=== PATIENT | male | born 1955 | race Hispanic/Latino ===

== ENCOUNTER 2016-10-31 12:17 | Emergency (ER) | payer OTHER ==
[2016-10-31 12:17] VITALS: BMI 29.2
[2016-10-31 12:49] VITALS: O2SAT 97
[2016-10-31] MEDS ORDERED: Naproxen 550 mg Tab PO STA (13:16)
[2016-10-31] MEDS ORDERED: Naproxen 550 mg Tab PO ONE (13:20)
--- NOTE | 2016-10-31 13:40 | C.PDOC ---
History Of Present Illness 61 yr old male presents to the ER stating he fell in the snow few weeks ago, injuring his right upper chest. Patient reports he has been having intermittent chest pain which is sharp and non radiating. Patient denies fever, SOB, nausea, vomiting, back pain, headache, weakness or numbness. Time Seen by Provider: 10/31/16 13:11 Chief Complaint (Nursing): Rib Injury History Per: Patient History/Exam Limitations: no limitations Onset/Duration Of Symptoms: Intermittent Episodes (Few weeks ) Current Symptoms Are (Timing): Still Present Past Medical History Reviewed: Historical Data, Nursing Documentation, Vital Signs Vital Signs: Last Vital Signs Temp 97.7 F 10/31/16 14:35 Pulse 100 H 10/31/16 14:35 Resp 18 10/31/16 14:35 BP 138/83 10/31/16 14:35 Pulse Ox 97 10/31/16 16:03 - Medical History PMH: Arthritis, Asthma, Back Problems, Benign Prostatic Hyperplasia, Bronchitis , Cardiac Aneurysm (aortic), CHF, COPD, Diabetes (Borderline), Emphysema, Gastritis, HTN, Hypercholesterolemia, Seizures Surgical History: Hernia Repair - [facility] Procedures ALCOHOL DETOXIFICATION (11/15/14) INSERT INDWELLING CATH (06/08/13) TETANUS TOXOID ADMINIST (05/28/14) Family History: States: No Known Family Hx - Social History Hx Tobacco Use: Yes Hx Alcohol Use: Yes Hx Substance Use: No - Immunization History Hx Influenza Vaccination: Yes Hx Pneumococcal Vaccination: Yes Review Of Systems Except As Marked, All Systems Reviewed And Found Negative. Constitutional: Negative for: Fever Cardiovascular: Positive for: Chest Pain (Right upper chest ) Respiratory: Negative for: Shortness of Breath Gastrointestinal: Negative for: Nausea, Vomiting Musculoskeletal: Negative for: Back Pain Neurological: Negative for: Weakness, Numbness, Headache Physical Exam - Physical Exam Appears: Well, Non-toxic, No Acute Distress Skin: Warm, Dry, No Rash Head: Atraumatic, Normacephalic Oral Mucosa: Moist Neck: Normal, Normal ROM, Supple Chest: Symmetrical, Tenderness (Moderate tenderness to the left upper lateral chest ) Cardiovascular: Rhythm Irregular, No Murmur Respiratory: Normal Breath Sounds, No Rales, No Wheezing Gastrointestinal/Abdominal: Normal Exam, Soft, No Tenderness, No Guarding, No Rebound Back: Normal Inspection, No CVA Tenderness, Paraspinal Tenderness (difuse c5 to l1) Extremity: Normal ROM, No Swelling Neurological/Psych: Oriented x3, Normal Speech, Normal Cognition, Normal Motor ED Course And Treatment ECG: Interpreted By Me, Viewed By Me ECG Rhythm: Sinus Tachycardia ECG Interpretation: Abnormal Rate From EC (BPM) O2 Sat by Pulse Oximetry: 97 (RA ) - Other Rad X-Ray - Ribs & Chest X-Ray: Interpreted by Me, Viewed By Me Interpretation: Fractured 8th rib. Medical Decision Making Medical Decision Making: PLAN: * X-Ray - Ribs & Chest * Naproxen PO No ptx, results discussed with pt dc home with meds Disposition Counseled Patient/Family Regarding: Need For Followup - Disposition Disposition: HOME/ ROUTINE Disposition Time: 14:25 Condition: GOOD Prescriptions: Naproxen [Naprosyn] 1 tab PO BID PRN #25 tab PRN Reason: Pain oxyCODONE/Acetaminophen [Percocet 5/325 mg Tab] 1 tab PO Q4H PRN #12 tab PRN Reason: .severe pain Instructions: Rib Fracture (ED) - Clinical Impression Clinical Impression: Rib fracture - Scribe Statement The provider has reviewed the documentation as recorded by the Scribe Rox Holland Provider Attestation: All medical record entries made by the Scribe were at my direction and personally dictated by me. I have reviewed the chart and agree that the record accurately reflects my personal performance of the history, physical exam, medical decision making, and the department course for this patient. I have also personally directed, reviewed, and agree with the discharge instructions and disposition.
[2016-10-31 14:37] VITALS: BP 138/83; PULSE 100; RESP 18; TEMP 97.7
--- NOTE | 2016-10-31 15:24 | RAD ---
PROCEDURE: Radiographs of the Chest and Right Ribs. HISTORY: fall rt upper CP COMPARISON: None available. TECHNIQUE: Frontal radiograph of the chest and multiple oblique radiographs of the right ribs were obtained. FINDINGS: RIGHT RIBS: There is nondisplaced fracture at the right 9th rib LUNGS: Clear. PLEURA: No pneumothorax or pleural fluid. CARDIOVASCULAR: Normal sized heart. No pulmonary vascular congestion. OTHER FINDINGS: None. IMPRESSION: Nondisplaced fracture at the right 9th rib.
--- NOTE | 2016-11-05 13:14 | CARD ---
APPROVED REPORT EKG Measurement Heart [id number] <Conclusion> Sinus tachycardia Voltage criteria for left ventricular hypertrophy Abnormal ECG
== END 2016-10-31 14:36 | disposition home or self-care (01) ==
LOC: C.ER 12:17
DX: S22.31XA Fracture of one rib, right side, initial encounter for closed fracture (principal); W00.0XXA Fall on same level due to ice and snow, initial encounter

== ENCOUNTER 2016-12-06 20:02 | Emergency (ER) | payer OTHER ==
[2016-12-06 20:02] VITALS: BMI 29.2
[2016-12-06 20:48] VITALS: TEMP 97.4
--- NOTE | 2016-12-06 22:10 | C.PDOC ---
History Of Present Illness A 61 year old male presents to the ER c/o chronic lower back pain that radiates to the bilateral lower legs and thighs for a while now. Patient notes taking OTC meds with no relief. Patient denies bowel or bladder incontinence, weakness or numbness, nausea, vomiting, trauma, fever, chills, or any other complaints. Time Seen by Provider: 12/06/16 20:59 Chief Complaint (Nursing): Hip Pain History Per: Patient History/Exam Limitations: no limitations Onset/Duration Of Symptoms: Days Current Symptoms Are (Timing): Still Present Severity: Mild Recent travel outside of the [place]: No Additional History Per: Patient Past Medical History Reviewed: Historical Data, Nursing Documentation, Vital Signs Vital Signs: Last Vital Signs Temp 97.4 F L 12/06/16 20:46 Pulse 97 H 12/06/16 23:07 Resp 18 12/06/16 23:07 BP 122/80 12/06/16 23:07 Pulse Ox 99 12/06/16 23:07 - Medical History PMH: Arthritis, Asthma, Back Problems, Benign Prostatic Hyperplasia, Bronchitis , Cardiac Aneurysm, CHF, COPD, Diabetes (Borderline), Emphysema, Gastritis, HTN , Hypercholesterolemia, Seizures Surgical History: Hernia Repair - [facility] Procedures ALCOHOL DETOXIFICATION (11/15/14) INSERT INDWELLING CATH (06/08/13) TETANUS TOXOID ADMINIST (05/28/14) Family History: States: Unknown Family Hx - Social History Hx Tobacco Use: Yes Hx Alcohol Use: Yes Hx Substance Use: No - Immunization History Hx Tetanus Toxoid Vaccination: No Hx Influenza Vaccination: Yes Hx Pneumococcal Vaccination: Yes Review Of Systems Except As Marked, All Systems Reviewed And Found Negative. Constitutional: Negative for: Fever, Chills, Other (Trauma) Gastrointestinal: Negative for: Nausea, Vomiting Genitourinary: Negative for: Incontinence Musculoskeletal: Positive for: Back Pain (Lower back), Leg Pain (Bilateral lower legs and thighs) Neurological: Negative for: Weakness, Numbness Physical Exam - Physical Exam Appears: Non-toxic, No Acute Distress Skin: Warm, Dry Head: Atraumatic, Normacephalic Eye(s): bilateral: Normal Inspection Back: Normal Inspection, No Vertebral Tenderness, Paraspinal Tenderness (lumbar) , No Straight Leg Raising Extremity: Normal ROM, Tenderness (Tenderness to the lower paralumbar spine.), No Calf Tenderness, No Swelling Extremity: Bilateral: Normal Color And Temperature Pulses: Left Dorsalis Pedis: Normal, Right Dorsalis Pedis: Normal Neurological/Psych: Oriented x3, Normal Speech, Normal Motor, Normal Sensation Gait: Steady ED Course And Treatment O2 Sat by Pulse Oximetry: 97 (RA) Pulse Ox Interpretation: Normal Medical Decision Making Medical Decision Making: Impression: 61 y/o c/o lower back pain and bilateral leg and thigh pain for a while Plans: -Toradol -Reassess and disposition On reassessment, patient is resting comfortably, and is in no acute distress. Patient was instructed to follow up with physician/clinic in 1-2 days for further evaluation. Disposition Counseled Patient/Family Regarding: Diagnosis, Need For Followup, Rx Given - Disposition Disposition: HOME/ ROUTINE Disposition Time: 22:51 Condition: STABLE Additional Instructions: [facility] Return to ER if worse Prescriptions: traMADol [Ultram] 50 mg PO TID #14 tab Instructions: Chronic Pain (ED) - Clinical Impression Clinical Impression: Chronic back pain - Scribe Statement The provider has reviewed the documentation as recorded by the Scribalberto hernández All medical record entries made by the Viktoribalberto were at my direction and personally dictated by me. I have reviewed the chart and agree that the record accurately reflects my personal performance of the history, physical exam, medical decision making, and the department course for this patient. I have also personally directed, reviewed, and agree with the discharge instructions and disposition.
[2016-12-06 23:09] VITALS: BP 122/80; PULSE 97; RESP 18
[2016-12-07 04:43] VITALS: O2SAT 97
== END 2016-12-06 23:08 | disposition home or self-care (01) ==
LOC: C.ER 20:02
DX: M54.5 Low back pain (principal); G89.29 Other chronic pain
CPT/HCPCS: 96372; 99284; J1885

== ENCOUNTER 2017-01-27 11:00 | Inpatient (IN) | payer OTHER ==
[2017-01-27 11:00] VITALS: BMI 29.2
--- NOTE | 2017-01-27 11:52 | C.PDOC ---
History Of Present Illness 62 y/o male presents to ED for evaluation s/p syncope. History limited due to clinical condition. Pt states " I don't know what happened...I remember falling asleep somewhere." Pt found in hallway. Pt currently complaining of nausea, left sided neck pain and LUQ abdominal pain. Denies recent EtOH or drug use. Denies prior PSHx. LIMITED DUE TO CLIN COND "I DONT KNOW WHAT HAPPENED". BIBA FOR SYNCOPE. FOUND IN HALLWAY "I REMEMBER FALLING ASLEEP SOMEWHERE". CURRENTLY CO NAUSEA, L SIDE NECK PAIN AND LUQ ABD PAIN. DENIES RECENT ETOH, DRUG USE. DENIES PRIOR PSH ROS LIMTIED EXAM MOD DIST NONTOXIC POOR HYGIENE HEENT ATRAUM PERRLA NECK SUPPLE ATRAUM NONTEND LUNGS NEG ABD +LUQ/RLQ TEND +GUARDING SOFT NONDIST NEURO AO2 NO GROSS FOCAL DEF PSYCH CALM COOPERATIVE NO S/S ACUTE INTOX OR WITHDRAWAL GAIT STEADY WO DIFF SKIN WARM DRY MDM NO PRIOR HO DEMENTIA, DRUG ABUSE FROM PRIOR ER RECORDS. PMH of 2 AR's, COPD, hx of 2 seizures and EtOH abuse PER PRIOR DC RECORD. ?POST ICTAL, SYNCOPE Time Seen by Provider: 01/27/17 11:37 Chief Complaint (Nursing): Altered Mental Status History Per: Patient History/Exam Limitations: Clinical Condition Usual Baseline: Unknown Exacerbating Factor(s): Unknown Use Of Anticoag/Antiplatelets: No Speech Is: Normal Severity: Mild Recent travel outside of the [place]: No Associated Symptoms: Neck Pain, Syncope Past Medical History Reviewed: Historical Data, Nursing Documentation, Vital Signs Vital Signs: Last Vital Signs Temp 99.8 F H 01/27/17 12:38 Pulse 100 H 01/27/17 14:22 Resp 14 01/27/17 14:22 BP 164/108 H 01/27/17 14:22 Pulse Ox 96 01/27/17 15:16 - Medical History PMH: Arthritis, Asthma, Back Problems, Benign Prostatic Hyperplasia, Bronchitis , Cardiac Aneurysm, CHF, COPD, Diabetes (Borderline), Emphysema, Gastritis, HTN , Hypercholesterolemia, Seizures Surgical History: Hernia Repair - [facility] Procedures ALCOHOL DETOXIFICATION (11/15/14) INSERT INDWELLING CATH (06/08/13) TETANUS TOXOID ADMINIST (05/28/14) Family History: States: Unknown Family Hx - Social History Hx Tobacco Use: Yes Hx Alcohol Use: Yes Hx Substance Use: No - Immunization History Hx Tetanus Toxoid Vaccination: No Hx Influenza Vaccination: Yes Hx Pneumococcal Vaccination: Yes Review Of Systems Review Of Systems: ROS cannot be obtained secondary to pt's inabilty to answer questions. Gastrointestinal: Positive for: Nausea, Abdominal Pain Musculoskeletal: Positive for: Neck Pain Neurological: Positive for: Other (syncope) Physical Exam - Physical Exam Appears: Non-toxic, In Acute Distress (moderate), Other (poor hygeine) Skin: Warm, Dry, No Rash Head: Atraumatic, Normacephalic Eye(s): bilateral: Normal Inspection, PERRL, EOMI Neck: Normal, Normal ROM, No Midline Cervical Tenderness, No Paracervical Tenderness, Supple Chest: Symmetrical, No Tenderness Cardiovascular: Rhythm Regular, No Murmur Respiratory: Normal Breath Sounds, No Rales, No Rhonchi, No Wheezing Gastrointestinal/Abdominal: Soft, Tenderness (LUQ/RLQ), No Distention, Guarding , No Rebound Extremity: Normal ROM Extremity: Bilateral: Atraumatic Neurological/Psych: Other (AOx2, no gross focal deficit. Calm, cooperative. No acute intoxication or withdrawal.) Gait: Steady (without difficulty) ED Course And Treatment - Laboratory Results Result Diagrams: 01/27/17 12:35 01/27/17 12:35 ECG: Interpreted By Me, Viewed By Ak ECG Rhythm: Sinus Tachycardia Rate From EC (BPM) O2 Sat by Pulse Oximetry: 96 (room air) Pulse Ox Interpretation: Normal - Radiology CXR: Interpreted by Me, Viewed By Ak CXR Interpretation: Yes: No Acute Disease - CT Scan/US CT head Other Rad Studies (CT/US): Read By Radiologist, Radiology Report Reviewed CT/US Interpretation: PROCEDURE: CT HEAD WITHOUT CONTRAST. HISTORY: AMS. COMPARISON: None available. TECHNIQUE: Axial computed tomography images were obtained through the head/brain without intravenous contrast. Radiation dose: Total exam DLP = 974.30 mGy-cm. This CT exam was performed using one or more of the following dose reduction techniques: Automated exposure control, adjustment of the mA and/or kV according to patient size, and/or use of iterative reconstruction technique. FINDINGS: HEMORRHAGE: No intracranial hemorrhage. BRAIN: No mass effect or edema. No evidence of acute infarct. Mild periventricular white matter lucency consistent with age related microvascular ischemic change. There is a tiny left basal ganglia lacunar infarct not evident on prior examination. There is mild diffuse age-appropriate cerebral atrophy. VENTRICLES: Minimal ventricular dilatation consistent with degree of surrounding parenchymal atrophy. CALVARIUM: Unremarkable. PARANASAL SINUSES: Chronic ethmoid sinusitis. MASTOID AIR CELLS: Unremarkable as visualized. No inflammatory changes. OTHER FINDINGS: None. IMPRESSION: No evidence of acute infarct. No intracranial mass or hemorrhage. Age related atrophy and chronic white matter ischemic change. Chronic ethmoid sinusitis. CT abdomen Other Rad Studies (CT/US): Read By Radiologist CT/US Interpretation: PROCEDURE: CT Abdomen and Pelvis with contrast. HISTORY : L SIDED abd pain. COMPARISON: 11/05/2013. TECHNIQUE: Contrast dose: 100 mL Visipaque 320. Radiation dose: Total exam DLP = 322.99 mGy-cm. This CT exam was performed using one or more of the following dose reduction techniques: Automated exposure control, adjustment of the mA and/or kV according to patient size, and/or use of iterative reconstruction technique. FINDINGS: LOWER THORAX : Minimal dependent atelectasis posterior right lower lobe. LIVER: Unremarkable. No gross lesion or ductal dilatation. GALLBLADDER AND BILE DUCTS : Unremarkable. PANCREAS: Unremarkable. No gross lesion or ductal dilatation. SPLEEN: Unremarkable. ADRENALS: Unremarkable. No mass. KIDNEYS AND URETERS: Low-density circumscribed ovoid mass mid left kidney, 1.7 cm. Unchanged compared to 11/05/2013. This measures 45 Hounsfield units. This may represent a complex cyst with proteinaceous or hemorrhagic content. Given the interval stability over 3 years, this is not concerning for neoplasm. No other renal mass. No renal calculus or hydronephrosis. VASCULATURE: Unremarkable. No aortic aneurysm. BOWEL: No oral contrast administered. The colon is nondistended. Nevertheless, there is some concern for mild mural thickening of the distal transverse colon splenic flexure. Also questionable mural thickening of the ascending colon. Possible nonspecific colitis. Followup advised. There is sigmoid diverticulosis without evidence of diverticulitis. Questionable mural thickening of the sigmoid colon. This may be due to chronic muscular hypertrophy from diverticulosis. No other abnormal bowel loops are identified. No bowel obstruction. APPENDIX: Normal appendix. PERITONEUM: Unremarkable. No free fluid. No free air. LYMPH NODES: Unremarkable. No enlarged lymph nodes. BLADDER: Mild thickening of the anterior wall of the urinary bladder. The bladder is poorly distended. Nevertheless, further evaluation is suggested. REPRODUCTIVE: Normal prostate. BONES: No acute fracture. OTHER FINDINGS: None. IMPRESSION: Possible mild nonspecific colitis particularly notable in the transverse colon splenic flexure. Also concerning in the descending colon. Sigmoid diverticulosis. No evidence diverticulitis. Thickening of the anterior wall of the urinary bladder though the bladder is poorly distended. Further evaluation is suggested to exclude neoplasm. Stable low-density left renal mass, possibly complex cyst. Progress - Re-Evaluation Re-evaluation Note: 01/27/17 14:08 EXAM UN[facility] VSS D/W DR FITCH WILL EVAL IN ER 01/27/17 14:18 PERSIST AO2. CO PERSIST ABD PAIN. NO SZ SINCE INITIAL EVAL. NAUSEA RESOLVED. 01/27/17 14:39 persist TACHYCARDIA, HTN. 01/27/17 15:15 D/W DR MEIR THURMAN PRODUCE SORTER WILL ADMIT - Data Reviewed Data Reviewed: Lab, Diagnostic imaging, EKG, Old records - Critical Care Citical Care: Excluding Proc Time Critical Care Time: 120 minutes - Continuity of Care Discussed pt. case with is consultant/specialty: General Surgery Medical Decision Making Medical Decision Making: Plan: * CT head * EKG * CXR * labs * UA * ativan, zofran * IV fluids NO PRIOR HO DEMENTIA, DRUG ABUSE FROM PRIOR ER RECORDS. PMH of 2 AR's, COPD, hx of 2 seizures and EtOH abuse PER PRIOR DC RECORD. ?POST ICTAL, SYNCOPE Disposition Counseled Patient/Family Regarding: Studies Performed, Diagnosis - Disposition Disposition: HOSPITALIZED Disposition Time: 15:15 Condition: SERIOUS - POA Present On Arrival: None - Clinical Impression Clinical Impression: Colitis, Altered mental state, Alcohol withdrawal - Scribe Statement The provider has reviewed the documentation as recorded by the Jocy Magaña Provider Attestation: All medical record entries made by the Jocy were at my direction and personally dictated by me. I have reviewed the chart and agree that the record accurately reflects my personal performance of the history, physical exam, medical decision making, and the department course for this patient. I have also personally directed, reviewed, and agree with the discharge instructions and disposition. Decision To Admit - Pt Status Changed To: Hospital Disposition Of: Inpatient - Admit Certification Admit to Inpatient:: After my assessment, the patient will require hospitalization for at least two midnights. This is because of the severity of symptoms shown, intensity of services needed, and/or the medical risk in this patient being treated as an outpatient. - InPatient: Physician Admission Certification:: SEE NOTE - . Bed Request Type: Telemetry Admitting Physician: Michelle Elias Patient Diagnosis: Colitis, Altered mental state, Alcohol withdrawal
[2017-01-27 12:32] LABS: VENOUS BLOOD GAS BASE EXCESS 0.9 mmol/L (0.0-2.0); VENOUS BLOOD GAS PCO2 32 mmHg (40-60); VENOUS BLOOD GAS PO2 33 mm/Hg (30-55); VENOUS BLOOD PH 7.48 (7.32-7.43)
[2017-01-27 12:55] LABS: BASO % 0.5 % (0.0-2.0); HEMOGLOBIN 14.1 g/dL (12.0-18.0); LYMPH # 0.7 K/uL (1.0-4.3); LYMPH % 10.3 % (20.0-40.0); MEAN CELL VOLUME 92.7 fL (80.0-94.0); MEAN CORPUSCULAR HEMOGLOBIN 31.5 pg (27.0-31.0); MEAN PLATELET VOLUME 7.3 fL (7.2-11.7); MONO # 0.6 K/uL (0.0-0.8); NEUT # 5.5 K/uL (1.8-7.0); NEUT % 80.2 % (50.0-75.0); RBC 4.49 Mil/uL (4.40-5.90); RED CELL DISTRIBUTION WIDTH 14.4 % (11.5-14.5); WHITE BLOOD COUNT 6.9 K/uL (4.8-10.8)
--- NOTE | 2017-01-27 12:55 | RAD ---
PROCEDURE: CHEST RADIOGRAPH, 1 VIEW HISTORY: AMS COMPARISON: 10/31/2016 FINDINGS: LUNGS: Clear. PLEURA: No pneumothorax or pleural fluid seen. CARDIOVASCULAR: Normal. OSSEOUS STRUCTURES: No significant abnormalities. VISUALIZED UPPER ABDOMEN: Normal. OTHER FINDINGS: None. IMPRESSION: No active disease.
[2017-01-27 13:02] LABS: PROTHROMBIN TIME 11.3 SECONDS (9.7-12.2)
[2017-01-27 13:11] LABS: ALBUMIN 4.5 g/dL (3.5-5.0)
[2017-01-27 13:14] LABS: ALB/GLOB RATIO 1.4 (1.0-2.1); AST/SGOT 34 U/L (17-59); BLOOD UREA NITROGEN 5 mg/dL (9-20); GFR AFRICAN-AMERICAN > 60; GFR NON-AFRICAN AMERICAN > 60
[2017-01-27 13:15] LABS: ALT/SGPT 14 U/L (21-72); CALCIUM 9.3 mg/dl (8.6-10.4); LIPASE 96 U/L (23-300)
[2017-01-27] MEDS ORDERED: Iodixanol 320 MG/ML 100 ML BOTTLE IV ONE (13:39)
--- NOTE | 2017-01-27 14:03 | CT ---
PROCEDURE: CT HEAD WITHOUT CONTRAST. HISTORY: AMS COMPARISON: None available. TECHNIQUE: Axial computed tomography images were obtained through the head/brain without intravenous contrast. Radiation dose: Total exam DLP = 974.30 mGy-cm. This CT exam was performed using one or more of the following dose reduction techniques: Automated exposure control, adjustment of the mA and/or kV according to patient size, and/or use of iterative reconstruction technique. FINDINGS: HEMORRHAGE: No intracranial hemorrhage. BRAIN: No mass effect or edema. No evidence of acute infarct. Mild periventricular white matter lucency consistent with age related microvascular ischemic change. There is a tiny left basal ganglia lacunar infarct not evident on prior examination. There is mild diffuse age-appropriate cerebral atrophy. VENTRICLES: Minimal ventricular dilatation consistent with degree of surrounding parenchymal atrophy. CALVARIUM: Unremarkable. PARANASAL SINUSES: Chronic ethmoid sinusitis MASTOID AIR CELLS: Unremarkable as visualized. No inflammatory changes. OTHER FINDINGS: None. IMPRESSION: No evidence of acute infarct. No intracranial mass or hemorrhage. Age related atrophy and chronic white matter ischemic change. Chronic ethmoid sinusitis.
--- NOTE | 2017-01-27 14:36 | CT ---
PROCEDURE: CT Abdomen and Pelvis with contrast HISTORY: L SIDED abd pain COMPARISON: 11/05/2013 TECHNIQUE: Contrast dose: 100 mL Visipaque 320 Radiation dose: Total exam DLP = 322.99 mGy-cm. This CT exam was performed using one or more of the following dose reduction techniques: Automated exposure control, adjustment of the mA and/or kV according to patient size, and/or use of iterative reconstruction technique. FINDINGS: LOWER THORAX: Minimal dependent atelectasis posterior right lower lobe. LIVER: Unremarkable. No gross lesion or ductal dilatation. GALLBLADDER AND BILE DUCTS: Unremarkable. PANCREAS: Unremarkable. No gross lesion or ductal dilatation. SPLEEN: Unremarkable. ADRENALS: Unremarkable. No mass. KIDNEYS AND URETERS: Low-density circumscribed ovoid mass mid left kidney, 1.7 cm. Unchanged compared to 11/05/2013. This measures 45 Hounsfield units. This may represent a complex cyst with proteinaceous or hemorrhagic content. Given the interval stability over 3 years, this is not concerning for neoplasm. No other renal mass. No renal calculus or hydronephrosis. VASCULATURE: Unremarkable. No aortic aneurysm. BOWEL: No oral contrast administered. The colon is nondistended. Nevertheless, there is some concern for mild mural thickening of the distal transverse colon splenic flexure. Also questionable mural thickening of the ascending colon. Possible nonspecific colitis. Followup advised. There is sigmoid diverticulosis without evidence of diverticulitis. Questionable mural thickening of the sigmoid colon. This may be due to chronic muscular hypertrophy from diverticulosis. No other abnormal bowel loops are identified. No bowel obstruction. APPENDIX: Normal appendix. PERITONEUM: Unremarkable. No free fluid. No free air. LYMPH NODES: Unremarkable. No enlarged lymph nodes. BLADDER: Mild thickening of the anterior wall of the urinary bladder. The bladder is poorly distended. Nevertheless, further evaluation is suggested. REPRODUCTIVE: Normal prostate BONES: No acute fracture. OTHER FINDINGS: None. IMPRESSION: Possible mild nonspecific colitis particularly notable in the transverse colon splenic flexure. Also concerning in the descending colon. Sigmoid diverticulosis. No evidence diverticulitis. Thickening of the anterior wall of the urinary bladder though the bladder is poorly distended. Further evaluation is suggested to exclude neoplasm. Stable low-density left renal mass, possibly complex cyst.
[2017-01-27 15:01] LABS: SQUAMOUS EPITHIAL < 1 /hpf (0-5); URINE BILIRUBIN NEGATIVE (NEGATIVE); URINE BLOOD 1+ (NEGATIVE); URINE CLARITY Clear (Clear); URINE COLOR Yellow (YELLOW); URINE GLUCOSE (UA) 1+ mg/dL (Normal); URINE LEUKOCYTE ESTERASE NEG Leu/uL (Negative); URINE NITRATE NEGATIVE (NEGATIVE); URINE PROTEIN NEGATIVE (NEGATIVE); URINE UROBILINOGEN NORMAL mg/dL (0.2-1.0)
[2017-01-27 15:08] LABS: BENZODIAZEPINES, UR NEGATIVE (NEGATIVE)
[2017-01-27 15:09] LABS: BARBITURATES, UR NEGATIVE (NEGATIVE)
[2017-01-27 15:11] LABS: OPIATES, UR NEGATIVE (NEGATIVE)
[2017-01-27 15:12] LABS: PHENCYCLIDINE, UR NEGATIVE (NEGATIVE)
[2017-01-27] MEDS ORDERED: metroNIDAZOLE IV 500 mg/100 ml 500 MG/100 ML BAG IV STA (15:13)
[2017-01-27] MEDS ORDERED: Ciprofloxacin 400mg/200ml D5W 400 MG/200 ML BAG IV ONE (15:15)
--- NOTE | 2017-01-27 15:35 | CP.PCM.CON ---
<Jose Angel Serrano - Last Filed: 01/27/17 15:42> History of Present Illness - History of Present Illness History of Present Illness: Surgery: Dr. Green CC: Abd pain HPI: 62M was found down by EMS in hallway for unknown duration and brought to ED. Pt is awake and alert, but unable to provide any hx about current state. After presenting to ED he states that he developed L side abd pain, nausea and no vomiting. He states that the pain is localized. No alleviating/aggravating factors. He denies F/C, no HAHN/blurred vision, no CP/palpitations, no SOB/cough , no hematuria/dysuria, no change in bowel habits. PMH: HTN, PR, CHF, DM, BPH, COPD, seizures PSH: Pt denies, review of chart shows R inguinal and ventral hernia repair Meds: MAR reviewed NKDA Social: +ETOH/tobacco, no drugs Fhx: Non-contributory Review of Systems - Review of Systems All systems: reviewed and no additional remarkable complaints except (HPI) Past Patient History - Infectious Disease Hx of Infectious Diseases: None - Past Medical History & Family History Past Medical History?: Yes - Past Social History Smoking Status: Light Smoker < 10 Cigarettes Daily - CARDIAC Hx Congestive Heart Failure: Yes Hx Hypercholesterolemia: Yes Hx Hypertension: Yes - PULMONARY Hx Asthma: Yes Hx Bronchitis: Yes Hx Chronic Obstructive Pulmonary Disease (COPD): Yes Hx Emphysema: Yes - NEUROLOGICAL Hx Seizures: Yes - HEENT Hx HEENT Problems: No - ENDOCRINE/METABOLIC Hx Endocrine Disorders: Yes Hx Diabetes Mellitus Type 2: Yes - HEMATOLOGICAL/ONCOLOGICAL Hx Blood Disorders: No - INTEGUMENTARY Hx Dermatological Problems: No - MUSCULOSKELETAL/RHEUMATOLOGICAL Hx Arthritis: Yes - GASTROINTESTINAL Hx Gastritis: Yes - PSYCHIATRIC Hx Substance Use: No - SURGICAL HISTORY Hx Surgeries: Yes Hx Herniorrhaphy: Yes - ANESTHESIA Hx Anesthesia: Yes Hx Anesthesia Reactions: No Meds Allergies/Adverse Reactions: Allergies Allergy/AdvReac Type Severity Reaction Status Date / Time tomatoes AdvReac RASH Uncoded 01/27/17 11:19 - Medications Medications: Current Medications Hydralazine HCl (Apresoline) 10 mg IVP STAT NOEL Ciprofloxacin (Cipro 400mg/200ml Dsw) 400 mg in 200 mls @ 133.333 mls/hr IV ONCE ONE Stop: 01/27/17 16:44 Metronidazole (Flagyl) 500 mg in 100 mls @ 100 mls/hr IV STAT STA Stop: 01/27/17 16:12 Physical Exam - Constitutional Appears: Non-toxic, No Acute Distress, Unkempt, Confused - Head Exam Head Exam: ATRAUMATIC, NORMOCEPHALIC - Eye Exam Eye Exam: EOMI - ENT Exam ENT Exam: Mucous Membranes Moist - Neck Exam Neck exam: Positive for: Full Rom - Respiratory Exam Respiratory Exam: NORMAL BREATHING PATTERN. absent: Accessory Muscle Use, Respiratory Distress - GI/Abdominal Exam GI & Abdominal Exam: Soft, Tenderness (L mid abd). absent: Distended, Firm, Guarding, Rebound, Rigid - Extremities Exam Extremities exam: Negative for: calf tenderness, pedal edema - Neurological Exam Neurological exam: Alert Results - Vital Signs Recent Vital Signs: Last Vital Signs Temp 99.8 F H 01/27/17 12:38 Pulse 100 H 01/27/17 14:22 Resp 14 01/27/17 14:22 BP 164/108 H 01/27/17 14:22 Pulse Ox 96 01/27/17 15:16 - Labs Result Diagrams: 01/27/17 12:35 01/27/17 12:35 Labs: Laboratory Results - last 24 hr 01/27/17 01/27/17 01/27/17 12:25 12:35 12:35 WBC 6.9 RBC 4.49 Hgb 14.1 Hct 41.6 MCV 92.7 D MCH 31.5 H MCHC 34.0 RDW 14.4 Plt Count 294 MPV 7.3 Neut % (Auto) 80.2 H Lymph % (Auto) 10.3 L [place] % (Auto) 9.0 Eos % (Auto) 0.0 Baso % (Auto) 0.5 Neut # 5.5 Lymph # 0.7 L [place] # 0.6 Eos # 0.0 Baso # 0.0 PT 11.3 INR 1.0 APTT 28 pO2 33 VBG pH 7.48 H VBG pCO2 32 L VBG HCO3 24.9 VBG Total CO2 24.8 VBG O2 Sat (Calc) 72.4 H VBG Base Excess 0.9 VBG Potassium 3.4 L Sodium 135.0 Chloride 100.0 Glucose 127 H Lactate 1.7 Potassium Carbon Dioxide Anion Gap BUN Creatinine Est GFR ( Amer) Est GFR (Non-Af Amer) Random Glucose Calcium Total Bilirubin AST ALT Alkaline Phosphatase Troponin I Total Protein Albumin Globulin Albumin/Globulin Ratio Lipase Venous Blood Potassium 3.4 L Urine Color Urine Clarity Urine pH Ur Specific [place] Urine Protein Urine Glucose (UA) Urine Ketones Urine Blood Urine Nitrate Urine Bilirubin Urine Urobilinogen Ur Leukocyte Esterase Urine WBC (Auto) Urine RBC (Auto) Ur Squamous Epith Cells Urine Opiates Screen Urine Methadone Screen Ur Barbiturates Screen Ur Phencyclidine Scrn Ur Amphetamines Screen U Benzodiazepines Scrn U Oth Cocaine Metabols U Cannabinoids Screen Alcohol, Quantitative 01/27/17 01/27/17 01/27/17 12:35 14:44 14:47 WBC RBC Hgb Hct MCV MCH MCHC RDW Plt Count MPV Neut % (Auto) Lymph % (Auto) [place] % (Auto) Eos % (Auto) Baso % (Auto) Neut # Lymph # [place] # Eos # Baso # PT INR APTT pO2 VBG pH VBG pCO2 VBG HCO3 VBG Total CO2 VBG O2 Sat (Calc) VBG Base Excess VBG Potassium Sodium 136 Chloride 100 Glucose Lactate Potassium 3.4 L Carbon Dioxide 21 L Anion Gap 18 BUN 5 L Creatinine 0.5 L Est GFR ( Amer) > 60 Est GFR (Non-Af Amer) > 60 Random Glucose 128 H Calcium 9.3 Total Bilirubin 0.7 AST 34 ALT 14 L D Alkaline Phosphatase 61 Troponin I 0.0150 Total Protein 7.8 Albumin 4.5 Globulin 3.3 Albumin/Globulin Ratio 1.4 Lipase 96 Venous Blood Potassium Urine Color Yellow Urine Clarity Clear Urine pH 7.0 Ur Specific [place] 1.010 Urine Protein Negative Urine Glucose (UA) 1+ H Urine Ketones 2+ H Urine Blood 1+ H Urine Nitrate Negative Urine Bilirubin Negative Urine Urobilinogen Normal Ur Leukocyte Esterase Neg Urine WBC (Auto) 1 Urine RBC (Auto) 4 H Ur Squamous Epith Cells < 1 Urine Opiates Screen Negative Urine Methadone Screen Negative Ur Barbiturates Screen Negative Ur Phencyclidine Scrn Negative Ur Amphetamines Screen Negative U Benzodiazepines Scrn Negative U Oth Cocaine Metabols Negative U Cannabinoids Screen Negative Alcohol, Quantitative < 10 - Imaging and Cardiology CT scan - abdomen Status: Image reviewed by me Assessment & Plan - Assessment and Plan (Free Text) Assessment: 62M w. abd pain -CT: possible colitis -No leukocytosis -CLD, ADAT -serial abd exam -no plans for surgical intervention at this time -will continue to follow -d/w attending Maggie <Js Green - Last Filed: 02/07/17 16:18> Results - Vital Signs Recent Vital Signs: Last Vital Signs Temp 97.7 F 01/29/17 07:50 Pulse 85 01/29/17 08:57 Resp 18 01/29/17 07:50 BP 167/98 H 01/29/17 07:50 Pulse Ox 99 01/29/17 07:50 - Labs Result Diagrams: 01/29/17 07:20 01/29/17 07:20 Attending/Attestation - Attestation I have personally seen and examined this patient.: Yes I have fully participated in the care of the patient.: Yes I have reviewed all pertinent clinical information: Yes Notes (Text): 02/07/17 16:17 Pt was seen and examined at bedside on 01/28/17 Agree with above note and assessment Pt with Right Flank pain due to fall Colitis is less likely CT scan reviewed Labs reviewed. C/w current mx Plan d/w pt and PMD in detail Risk and benefit explained in detail.
[2017-01-27] MEDS ORDERED: Sodium Chloride 0.9% 1,000 ML IV SCH (15:45)
[2017-01-27] MEDS ORDERED: Sodium Chloride 0.9% 1,000 ML ONE (16:20)
[2017-01-27 16:26] LABS: VENOUS BLOOD GAS BASE EXCESS -1.4 mmol/L (0.0-2.0); VENOUS BLOOD GAS PCO2 27 mmHg (40-60); VENOUS BLOOD GAS PO2 69 mm/Hg (30-55); VENOUS BLOOD PH 7.49 (7.32-7.43)
[2017-01-27 16:40] LABS: MAGNESIUM 1.7 mg/dL (1.6-2.3)
--- NOTE | 2017-01-28 07:47 | CARD ---
APPROVED REPORT EKG Measurement Heart [id number] <Conclusion> Sinus tachycardia Possible Left atrial enlargement Left ventricular hypertrophy Abnormal ECG
--- NOTE | 2017-01-28 10:47 | CP.PCM.PN ---
<Jose Angel Serrano - Last Filed: 01/28/17 10:45> Subjective - Date & Time of Evaluation Date of Evaluation: 01/28/17 Time of Evaluation: 10:45 - Subjective Subjective: Surgery: Dr. Green Pt seen and examined. LUQ abd pain persists. Pain most prominent at costal margin. No N/V. Objective - Vital Signs/Intake and Output Vital Signs (last 24 hours): Temp Pulse Resp BP Pulse Ox 97.8 F 78 20 125/81 97 01/28/17 09:19 01/28/17 09:19 01/28/17 09:19 01/28/17 09:19 01/28/17 09:19 Intake and Output: 01/28/17 01/28/17 06:59 18:59 Intake Total 1040 Balance 1040 - Medications Medications: Current Medications Albuterol/Ipratropium (Duoneb 3 Mg/0.5 Mg (3 Ml) Ud) 3 ml INH RQ6 NOEL Heparin Sodium (Porcine) (Heparin) 5,000 units SC Q12 NOEL Sodium Chloride (Sodium Chloride 0.9%) 1,000 mls @ 115 mls/hr IV .[id number] NOEL Last Admin: 01/27/17 16:27 Dose: 115 mls/hr Ciprofloxacin (Cipro 400mg/200ml Dsw) 400 mg in 200 mls @ 133 mls/hr IVPB Q12H NOEL Metronidazole (Flagyl) 500 mg in 100 mls @ 100 mls/hr IVPB Q8 NOEL Thiamine HCl (Vitamin B1 Tab) 100 mg PO DAILY NOEL - Labs Labs: PT 11.3 SECONDS (9.7-12.2) 01/27/17 12:35 INR 1.0 01/27/17 12:35 APTT 28 SECONDS (21-34) 01/27/17 12:35 - Constitutional Appears: Non-toxic, No Acute Distress - Eye Exam Eye Exam: EOMI - ENT Exam ENT Exam: Mucous Membranes Moist - Neck Exam Neck Exam: Full ROM - Respiratory Exam Respiratory Exam: NORMAL BREATHING PATTERN. absent: Accessory Muscle Use, Respiratory Distress - GI/Abdominal Exam GI & Abdominal Exam: Soft, Tenderness (LUQ at costal margin). absent: Distended , Firm, Guarding, Rigid, Rebound - Extremities Exam Extremities Exam: absent: Calf Tenderness, Pedal Edema - Neurological Exam Neurological Exam: Alert, Awake Assessment and Plan - Assessment and Plan (Free Text) Assessment: 62M w. abd pain, likely musculoskeletal 2/2 syncope where pt was lying down for unknown duration -advance diet as tolerated -no plans for surgical intervention -d/w attending Maggie PGY2 <Js Green - Last Filed: 02/07/17 16:19> Objective - Vital Signs/Intake and Output Vital Signs (last 24 hours): Temp Pulse Resp BP Pulse Ox 97.7 F 85 18 167/98 H 99 01/29/17 07:50 01/29/17 08:57 01/29/17 07:50 01/29/17 07:50 01/29/17 07:50 - Labs Labs: 01/29/17 07:20 01/29/17 07:20 PT 11.3 SECONDS (9.7-12.2) 01/27/17 12:35 INR 1.0 01/27/17 12:35 APTT 28 SECONDS (21-34) 01/27/17 12:35 Attending/Attestation - Attestation I have personally seen and examined this patient.: Yes I have fully participated in the care of the patient.: Yes I have reviewed all pertinent clinical information, including history, physical exam and plan: Yes Notes (Text): 02/07/17 16:19 Pt was seen and examined at bedside on 01/28/17 Agree with above note and assessment Pt with Right Flank pain due to fall Colitis is less likely CT scan reviewed Labs reviewed. C/w current mx Plan d/w pt and PMD in detail Risk and benefit explained in detail.
[2017-01-28] MEDS: Ciprofloxacin 400mg/200ml D5W 400 MG/200 ML BAG IVPB SCH ×2 (11:09→21:02)
[2017-01-28] MEDS: Sodium Chloride 0.9% 1,000 ML IV SCH (13:06)
[2017-01-28] MEDS: Albuterol-Ipratrop 3 mg / 0.5 (3 ml) UD INH SCH ×2 (13:26→19:46)
[2017-01-28] MEDS: metroNIDAZOLE IV 500 mg/100 ml 500 MG/100 ML BAG IVPB SCH ×2 (14:02→22:49)
[2017-01-29] MEDS: Albuterol-Ipratrop 3 mg / 0.5 (3 ml) UD INH SCH ×2 (01:29→08:07)
[2017-01-29] MEDS: Sodium Chloride 0.9% 1,000 ML IV SCH (02:00)
[2017-01-29] MEDS: metroNIDAZOLE IV 500 mg/100 ml 500 MG/100 ML BAG IVPB SCH (07:10)
[2017-01-29 07:35] LABS: BASO % 0.7 % (0.0-2.0); EOS # 0.2 K/uL (0.0-0.7); EOS % 3.7 % (0.0-4.0); HEMOGLOBIN 12.9 g/dL (12.0-18.0); LYMPH # 1.4 K/uL (1.0-4.3); LYMPH % 30.1 % (20.0-40.0); MEAN CELL VOLUME 93.8 fL (80.0-94.0); MEAN CORPUSCULAR HEMOGLOBIN 31.5 pg (27.0-31.0); MEAN CORPUSCULAR HGB CONC 33.6 g/dL (33.0-37.0); MEAN PLATELET VOLUME 7.3 fL (7.2-11.7); MONO # 0.5 K/uL (0.0-0.8); NEUT # 2.6 K/uL (1.8-7.0); NEUT % 54.5 % (50.0-75.0); RBC 4.1 Mil/uL (4.40-5.90); RED CELL DISTRIBUTION WIDTH 14.2 % (11.5-14.5); WHITE BLOOD COUNT 4.8 K/uL (4.8-10.8)
[2017-01-29 08:31] LABS: ALBUMIN 3.4 g/dL (3.5-5.0)
[2017-01-29 08:34] LABS: ALB/GLOB RATIO 1.3 (1.0-2.1); AST/SGOT 23 U/L (17-59); BLOOD UREA NITROGEN 4 mg/dL (9-20); GFR AFRICAN-AMERICAN > 60; GFR NON-AFRICAN AMERICAN > 60
[2017-01-29 08:35] LABS: ALT/SGPT 17 U/L (21-72); CALCIUM 8.5 mg/dl (8.6-10.4)
[2017-01-29 08:44] VITALS: BP 167/98; RESP 18; TEMP 97.7; O2SAT 99
[2017-01-29 09:07] VITALS: PULSE 85
--- NOTE | 2017-01-29 09:15 | CP.PCM.PN ---
<Antoni Prater - Last Filed: 01/29/17 09:16> Subjective - Date & Time of Evaluation Date of Evaluation: 01/29/17 Time of Evaluation: 06:45 - Subjective Subjective: SURGERY NOTE FOR DR. GREEN 62M seen and examined at bedside. Patient states pain in improved, denies nausea /vomiting, fevers/chills. Objective - Vital Signs/Intake and Output Vital Signs (last 24 hours): Temp Pulse Resp BP Pulse Ox 97.7 F 85 18 167/98 H 99 01/29/17 07:50 01/29/17 08:57 01/29/17 07:50 01/29/17 07:50 01/29/17 07:50 Intake and Output: 01/29/17 01/29/17 06:59 18:59 Intake Total 1600 Balance 1600 - Medications Medications: Current Medications Albuterol/Ipratropium (Duoneb 3 Mg/0.5 Mg (3 Ml) Ud) 3 ml INH RQ6 NOEL Last Admin: 01/29/17 08:07 Dose: 3 ml Chlordiazepoxide (Librium) 25 mg PO Q8 PRN PRN Reason: Anxiety Heparin Sodium (Porcine) (Heparin) 5,000 units SC Q12 NOEL Last Admin: 01/28/17 22:49 Dose: 5,000 units Ciprofloxacin (Cipro 400mg/200ml Dsw) 400 mg in 200 mls @ 133 mls/hr IVPB Q12H NOEL Last Admin: 01/28/17 21:02 Dose: 133 mls/hr Metronidazole (Flagyl) 500 mg in 100 mls @ 100 mls/hr IVPB Q8 NOLE Last Admin: 01/29/17 07:10 Dose: 100 mls/hr Sodium Chloride (Sodium Chloride 0.9%) 1,000 mls @ 80 mls/hr IV .[id number] [facility] [place] Last Admin: 01/29/17 02:00 Dose: Not Given Thiamine HCl (Vitamin B1 Tab) 100 mg PO DAILY [facility] [place] Last Admin: 01/28/17 11:09 Dose: 100 mg - Labs Labs: 01/29/17 07:20 01/29/17 07:20 PT 11.3 SECONDS (9.7-12.2) 01/27/17 12:35 INR 1.0 01/27/17 12:35 APTT 28 SECONDS (21-34) 01/27/17 12:35 - Constitutional Appears: Non-toxic, No Acute Distress - Respiratory Exam Respiratory Exam: Clear to Ausculation Bilateral, NORMAL BREATHING PATTERN - Cardiovascular Exam Cardiovascular Exam: REGULAR RHYTHM, +S1, +S2 - GI/Abdominal Exam GI & Abdominal Exam: Soft. absent: Distended, Firm, Guarding, Rigid, Tenderness , Rebound - Neurological Exam Neurological Exam: Alert, Awake Assessment and Plan - Assessment and Plan (Free Text) Assessment: 62M presents with abdominal pain that resolved Plan: - advance diet to regular - No surgical intervention - signing off Further recs discuss with Dr. Peter Prater, PGY1 <Js Green - Last Filed: 02/07/17 16:23> Objective - Vital Signs/Intake and Output Vital Signs (last 24 hours): Temp Pulse Resp BP Pulse Ox 97.7 F 85 18 167/98 H 99 01/29/17 07:50 01/29/17 08:57 01/29/17 07:50 01/29/17 07:50 01/29/17 07:50 - Labs Labs: 01/29/17 07:20 01/29/17 07:20 PT 11.3 SECONDS (9.7-12.2) 01/27/17 12:35 INR 1.0 01/27/17 12:35 APTT 28 SECONDS (21-34) 01/27/17 12:35 Attending/Attestation - Attestation I have personally seen and examined this patient.: Yes I have fully participated in the care of the patient.: Yes I have reviewed all pertinent clinical information, including history, physical exam and plan: Yes Notes (Text): 02/07/17 16:22 Pt was seen and examined at bedside on 01/29/17 Agree with above note and assessment Pt with Right Flank pain due to fall with Musculoskeletal pain Pt is improving Clinically No clinical evidence of Colitis Plan d/w pt and PMD in detail Risk and benefit explained in detail.
[2017-01-29] MEDS: Ciprofloxacin 400mg/200ml D5W 400 MG/200 ML BAG IVPB SCH (10:16)
[2017-01-29] MEDS ORDERED: Potassium Chloride 20 mEq ER Tab PO SCH (13:16)
[2017-01-29] MEDS ORDERED: NIFEDIPINE 60 MG PO SCH (14:30)
--- NOTE | 2017-01-29 16:34 | CP.PCM.PN ---
Subjective - Date & Time of Evaluation Date of Evaluation: 01/29/17 Time of Evaluation: 11:00 - Subjective Subjective: alert, awake, ambulatory, no distress noted. Objective - Vital Signs/Intake and Output Vital Signs (last 24 hours): Temp Pulse Resp BP Pulse Ox 97.7 F 85 18 167/98 H 99 01/29/17 07:50 01/29/17 08:57 01/29/17 07:50 01/29/17 07:50 01/29/17 07:50 Intake and Output: 01/29/17 01/29/17 06:59 18:59 Intake Total 1600 Balance 1600 - Labs Labs: 01/29/17 07:20 01/29/17 07:20 PT 11.3 SECONDS (9.7-12.2) 01/27/17 12:35 INR 1.0 01/27/17 12:35 APTT 28 SECONDS (21-34) 01/27/17 12:35 Assessment and Plan - Assessment and Plan (Free Text) Assessment: Patient admitted with syncope, vomiting episode at home, alert and orientedx3, denies sob or chest pains. Cleared by surgery, able to tolerate diet, labs back to normal. D/W DR Elias, plan to discharge home today.
--- NOTE | 2017-01-29 16:40 | PCM.HF ---
Heart Failure Core Measure - Heart Failure Ejection Fraction: 40 % or Greater (EF 40-45%) RAFI Inhibitor Prescribed: Yes Beta-Leeann Prescribed: None Contraindication/Reason for not providing: COPD Angiotensin II Receptor Leeann Prescribed: No Contraindication/Reason for not providing: on rafi AnticoagulationTherapy for Atrial Fibrillation/Atrialflutter: No Contraindication/Reason for not providing: no afib Aldosterone Antagonist Prescribed: No Contraindication/Reason for not providing: ON NIFEDIPINE Hydralazine Nitrate Prescribed: No Contraindication/Reason for not providing: EF > 40% Implantable Cardioverter Defibrillator Therapy: No Contraindication/Reason for not providing: EF >40% Cardiac Resynchronization Therapy Prescribed: No Contraindication/Reason for not providing: not indicated - Follow up Will be discharged to: Home Follow Up Date (must be within 7 days from discharge): 02/03/17 Follow Up Time: 09:00
== END 2017-01-29 15:00 | disposition home or self-care (01) | DRG 141 ==
LOC: C.ER 11:00 → C.9E 15:17 → C.6T 17:53
PROVIDERS: ADMIT Internal Medicine; ATTEND Internal Medicine
DX: R55 Syncope and collapse (principal); F10.239 Alcohol dependence with withdrawal, unspecified; I11.0 Hypertensive heart disease with heart failure; I50.9 Heart failure, unspecified; R56.9 Unspecified convulsions; J44.9 Chronic obstructive pulmonary disease, unspecified; F17.210 Nicotine dependence, cigarettes, uncomplicated; N40.0 Benign prostatic hyperplasia without lower urinary tract symptoms; E11.9 Type 2 diabetes mellitus without complications; E78.00 Pure hypercholesterolemia, unspecified; R10.9 Unspecified abdominal pain

== ENCOUNTER 2017-03-06 22:38 | Emergency (ER) | payer OTHER ==
[2017-03-06 22:38] VITALS: BMI 29.2
[2017-03-06 22:55] VITALS: RESP 18; TEMP 97.7
--- NOTE | 2017-03-06 23:25 | C.PDOC ---
History Of Present Illness 62 year old male presents to the ED with complaints of diffuse chronic pruritic rash for several months. Patient states he was seen many times at [facility] and in ER. Pt currently uses calamine lotion with no relief. He denies fever, difficulty breath, or URI symptoms. Time Seen by Provider: 03/06/17 22:59 Chief Complaint (Nursing): Abnormal Skin Integrity History Per: Patient History/Exam Limitations: no limitations Onset/Duration Of Symptoms: Persistent (as per patient, several months ) Current Symptoms Are (Timing): Still Present Quality Of Symptoms: Itching. denies: Painful, Draining Recent travel outside of the [place]: No Additional History Per: Prior Records Past Medical History Reviewed: Historical Data, Nursing Documentation, Vital Signs Vital Signs: Last Vital Signs Temp 97.7 F 03/06/17 22:51 Pulse 94 H 03/06/17 23:34 Resp 18 03/06/17 23:34 BP 131/81 03/06/17 23:34 Pulse Ox 99 03/07/17 02:15 - Medical History PMH: Arthritis, Asthma, Back Problems, Benign Prostatic Hyperplasia, Bronchitis , Cardiac Aneurysm, CHF, COPD, Diabetes (Borderline), Emphysema, Gastritis, HTN , Hypercholesterolemia, Seizures Surgical History: Hernia Repair - [facility] Procedures ALCOHOL DETOXIFICATION (11/15/14) INSERT INDWELLING CATH (06/08/13) TETANUS TOXOID ADMINIST (05/28/14) Family History: States: Unknown Family Hx - Social History Hx Tobacco Use: Yes Hx Alcohol Use: Yes Hx Substance Use: No - Immunization History Hx Tetanus Toxoid Vaccination: No Hx Influenza Vaccination: Yes Hx Pneumococcal Vaccination: Yes Review Of Systems Constitutional: Negative for: Fever, Chills ENT: Negative for: Mouth Swelling, Throat Swelling Cardiovascular: Negative for: Chest Pain Respiratory: Negative for: Cough, Shortness of Breath Skin: Positive for: Rash Physical Exam - Physical Exam Appears: Non-toxic, No Acute Distress Skin: Warm, Dry, Rash (Diffuse dry, scaly, and mildly erythematus rash to the upper extremities, antecubital area, abdomen, and back.) Head: Atraumatic Eye(s): bilateral: Normal Inspection, PERRL, EOMI Oral Mucosa: Moist Tongue: Normal Appearing, No Swelling Lips: Normal Appearing, No Swelling Throat: Normal, No Erythema, No Exudate Neck: Supple Chest: Symmetrical, No Deformity Cardiovascular: Rhythm Regular Respiratory: Normal Breath Sounds, No Wheezing Neurological/Psych: Oriented x3 ED Course And Treatment O2 Sat by Pulse Oximetry: 99 (room air ) Progress Note: Patient was given prescription for Cortisone 1% cream and Atarax. Instructed to follow up with doctor. Disposition Counseled Patient/Family Regarding: Diagnosis, Need For Followup, Rx Given - Disposition Disposition: HOME/ ROUTINE Disposition Time: 23:23 Condition: STABLE Additional Instructions: Use medications as prescribed Take meds as directed Return to ER if worse Prescriptions: Hydrocortisone 1% Cream [Cortizone 1% Cream] 1 appl TP BID #1 tube hydrOXYzine HCl [Atarax] 25 mg PO HS #20 tab Instructions: Dermatitis (ED) Forms: [facility] (Swazi) - Clinical Impression Clinical Impression: Dermatitis - Scribe Statement The provider has reviewed the documentation as recorded by the Scribe Sultana Joseph All medical record entries made by the Scribe were at my direction and personally dictated by me. I have reviewed the chart and agree that the record accurately reflects my personal performance of the history, physical exam, medical decision making, and the department course for this patient. I have also personally directed, reviewed, and agree with the discharge instructions and disposition.
[2017-03-06 23:34] VITALS: BP 131/81; PULSE 94
[2017-03-07 02:09] VITALS: O2SAT 99
== END 2017-03-06 23:37 | disposition home or self-care (01) ==
LOC: C.ER 22:38
DX: L30.9 Dermatitis, unspecified (principal)

== ENCOUNTER 2017-03-08 18:37 | Inpatient (IN) | payer MEDICAID, OTHER ==
[2017-03-08 18:37] VITALS: BMI 29.2
[2017-03-08] MEDS ORDERED: Sodium Chloride 0.9% 1,000 ML IV ONE (19:16)
--- NOTE | 2017-03-08 19:16 | C.PDOC ---
History Of Present Illness Patient presents to the ER with a complaint of vomiting and shaking; he reports drinking 1-2 pints of vodka almost everyday, last drink was yesterday. Patient states he was gone through "the shakes" before, notes he has been having reddish emesis. Denies fever or chills. Time Seen by Provider: 03/08/17 19:15 Chief Complaint (Nursing): Substance Abuse History Per: Patient History/Exam Limitations: no limitations Onset/Duration Of Symptoms: Hrs Current Symptoms Are (Timing): Still Present Suicide/Self Injury Attempted (Context): None Modifying Factor(s): Alcohol Severity: Moderate Pain Scale Rating Of: 4 Associated Symptoms: denies: Depression, Suicidal Thoughts, Suicidal Plan Involuntary Hold By: None Recent travel outside of the [place]: No Past Medical History Reviewed: Historical Data, Nursing Documentation, Vital Signs Vital Signs: Last Vital Signs Temp Pulse 114 H 03/08/17 21:28 Resp 17 03/08/17 21:28 BP 158/94 H 03/08/17 21:28 Pulse Ox 98 03/08/17 21:48 - Medical History PMH: Arthritis, Asthma, Back Problems, Benign Prostatic Hyperplasia, Bronchitis , Cardiac Aneurysm, CHF, COPD, Diabetes (Borderline), Emphysema, Gastritis, HTN , Hypercholesterolemia, Seizures Surgical History: Hernia Repair - [facility] Procedures ALCOHOL DETOXIFICATION (11/15/14) INSERT INDWELLING CATH (06/08/13) TETANUS TOXOID ADMINIST (05/28/14) Family History: States: No Known Family Hx - Social History Hx Tobacco Use: Yes Hx Alcohol Use: Yes Hx Substance Use: No - Immunization History Hx Tetanus Toxoid Vaccination: No Hx Influenza Vaccination: Yes Hx Pneumococcal Vaccination: Yes Review Of Systems Constitutional: Negative for: Fever, Chills Eyes: Negative for: Redness ENT: Negative for: Throat Pain Cardiovascular: Negative for: Chest Pain Respiratory: Negative for: Shortness of Breath Gastrointestinal: Positive for: Vomiting Genitourinary: Negative for: Dysuria Musculoskeletal: Negative for: Back Pain Skin: Negative for: Rash, Lesions, Jaundice Neurological: Positive for: Other (Tremors) Psych: Positive for: Withdrawal Physical Exam - Physical Exam Appears: Non-toxic Skin: Warm, Dry Head: Normacephalic Eye(s): bilateral: Normal Inspection, PERRL, EOMI Oral Mucosa: Dry Neck: Trachea Midline, Supple Chest: Symmetrical, No Tenderness Cardiovascular: Rhythm Regular Respiratory: No Rales, No Rhonchi, No Wheezing Gastrointestinal/Abdominal: Soft, Tenderness (Mild diffuse), No Guarding, No Rebound Back: No CVA Tenderness Extremity: Normal ROM Extremity: Bilateral: Atraumatic, Normal Color And Temperature, Normal ROM Neurological/Psych: Oriented x3, Normal Speech, Normal Cranial Nerves, Other ( Tremulous) Gait: Steady ED Course And Treatment - Laboratory Results Result Diagrams: 03/08/17 19:30 03/08/17 19:30 ECG: Interpreted By Me, Viewed By Me ECG Rhythm: Sinus Tachycardia (119), Nonspecific Changes (rad, lvh) O2 Sat by Pulse Oximetry: 98 Pulse Ox Interpretation: Normal - Radiology CXR: Interpreted by Me, Viewed By Me CXR Interpretation: No: Infiltrates, Fracture, Pnemothorax Progress Note: EKG, blood work, CXR, and urinalysis ordered. Ativan, IV fluids, zofran, and protonix administered. Critical Care Time - Critical Care Note Total Time (in mins): 30 Documented critical care: time excludes all time spent performing seperately billable procedures. Disposition Discussed With DrStu: Wilder Patel Jr. Comment: accepted the pt on his service and took over the care at 9:46 PM Doctor Will See Patient In The: ED Counseled Patient/Family Regarding: Studies Performed, Diagnosis - Disposition Disposition: HOSPITALIZED Disposition Time: 19:16 Condition: FAIR Forms: [facility] (Cameroonian) - Clinical Impression Clinical Impression: Alcohol withdrawal, Alcohol dependence, UGI bleed, Vomiting - Scribe Statement The provider has reviewed the documentation as recorded by the Scribalberto Romero All medical record entries made by the Viktoribalberto were at my direction and personally dictated by me. I have reviewed the chart and agree that the record accurately reflects my personal performance of the history, physical exam, medical decision making, and the department course for this patient. I have also personally directed, reviewed, and agree with the discharge instructions and disposition. Decision To Admit - Pt Status Changed To: Hospital Disposition Of: Inpatient - Admit Certification Admit to Inpatient:: After my assessment, the patient will require hospitalization for at least two midnights. This is because of the severity of symptoms shown, intensity of services needed, and/or the medical risk in this patient being treated as an outpatient. - InPatient: Physician Admission Certification: I certify that this patient requires 2 or more midnights of care for the following reason:: After my assessment, the patient will require hospitalization for at least two midnights. This is because of the severity of symptoms shown, intensity of services needed, and/or the medical risk in this patient being treated as an outpatient. - . Bed Request Type: Telemetry Patient Diagnosis: Alcohol withdrawal, Alcohol dependence, UGI bleed, Vomiting
[2017-03-08] MEDS ORDERED: Multivitamin (MVI) 10 ML, Thiamine 100 MG, Folic Acid 1 MG in Sodium Chloride 0.9% 1,00... IV ONE (19:23)
[2017-03-08] MEDS ORDERED: Sodium Chloride 0.9% 1,000 ML ONE (19:29)
[2017-03-08 19:33] LABS: BASO % 0.3 % (0.0-2.0); HEMATOCRIT 42.9 % (35.0-51.0); LYMPH # 0.3 K/uL (1.0-4.3); MEAN CORPUSCULAR HGB CONC 34.8 g/dL (33.0-37.0); MEAN PLATELET VOLUME 7.3 fL (7.2-11.7); MONO # 0.8 K/uL (0.0-0.8); MONO % 6.8 % (0.0-10.0); PLATELET COUNT 267 K/uL (130-400); RED CELL DISTRIBUTION WIDTH 14.1 % (11.5-14.5); WHITE BLOOD COUNT 11.4 K/uL (4.8-10.8)
[2017-03-08 19:39] LABS: CHLORIDE 98 mmol/L (98-107); SODIUM 139 mmol/L (132-148)
[2017-03-08 19:40] LABS: POTASSIUM 3.7 mmol/L (3.6-5.2)
[2017-03-08 19:42] LABS: ALB/GLOB RATIO 1.4 (1.0-2.1); ALKALINE PHOSPHATASE 56 U/L (38-126); ALT/SGPT 32 U/L (21-72); AST/SGOT 50 U/L (17-59); BILIRUBIN,TOTAL 0.8 mg/dL (0.2-1.3); BLOOD UREA NITROGEN 11 mg/dL (9-20); CALCIUM 8.6 mg/dl (8.6-10.4); CARBON DIOXIDE 15 mmol/L (22-30); GFR AFRICAN-AMERICAN > 60; GLUCOSE,RANDOM 166 mg/dL (75-110); TOTAL PROTEIN 7.7 g/dL (6.3-8.3)
[2017-03-08 19:43] LABS: ALCOHOL SERUM < 10 mg/dl (0-10)
[2017-03-08 20:06] LABS: RBC URINE 1 /hpf (0-3); TRANSITIONAL EPITHIAL < 1 /hpf (0-3); URINE BACTERIA RARE (<OCC); URINE BILIRUBIN NEGATIVE (NEGATIVE); URINE COLOR Yellow (YELLOW); URINE GLUCOSE (UA) 2+ mg/dL (Normal); URINE KETONE 2+ mg/dL (NEGATIVE); URINE LEUKOCYTE ESTERASE NEG Leu/uL (Negative); URINE PROTEIN 1+ mg/dL (NEGATIVE); URINE UROBILINOGEN NORMAL mg/dL (0.2-1.0); WBC URINE 1 /hpf (0-5)
[2017-03-08 20:10] LABS: URINE BLOOD NEGATIVE (NEGATIVE)
[2017-03-08 20:26] LABS: NEUTROPHIL 87 % (50-75); TOTAL CELLS COUNTED 100
--- NOTE | 2017-03-08 23:28 | CP.PCM.HP ---
History of Present Illness - History of Present Illness History of Present Illness: Pt evaluated at approx 23:10PM on 03/08/17. CODE STATUS could not be determined at this time due to patient's mental status. CC: vomiting HPI: 62 year old male with PMHx significant for prior PA, COPD, seizure and alcohol abuse presents with several episodes of vomiting as per ED note. Patient was unable to provide much of a history and was quite somnolent during encounter after receiving ativan in the ED. Per ED note, Patient had several epsiodes on vomiting and then had "the shakes". Patient admitted to red colored emesis to ED physician however later denied when asked by conventional underwriter. At this time, ROS was difficult to obtain due to somnolence. PMHx- as stated above PSHX-hernia repair Fam Hx- could not obtain. Social Hx- a few cigarettes a day for quite a bit of time; drinks alcohol on and off; denies drug use; currently unemployed Meds- Unsure Allergies- tomatoes PMD: [facility] of the history was supplemented from the [facility] due to patient's presentation. Present on Admission - Present on Admission Any Indicators Present on Admission: No Review of Systems - Review of Systems Systems not reviewed;Unavailable: Altered Mental Status, Intoxicated ( questionable) Review of Systems: Could not fully obtain due to patient's somnolence - Constitutional Constitutional: absent: Headache - Cardiovascular Cardiovascular: absent: Chest Pain, Chest Pain at Rest Past Patient History - Infectious Disease Hx of Infectious Diseases: None - Past Medical History & Family History Past Medical History?: Yes - Past Social History Smoking Status: Heavy Smoker > 10 Cigarettes Daily Alcohol: > 2 Drinks/Day Drugs: Denies - CARDIAC Hx Congestive Heart Failure: Yes Hx Hypercholesterolemia: Yes Hx Hypertension: Yes - PULMONARY Hx Asthma: Yes Hx Bronchitis: Yes Hx Chronic Obstructive Pulmonary Disease (COPD): Yes Hx Emphysema: Yes - NEUROLOGICAL Hx Seizures: Yes - HEENT Hx HEENT Problems: No - ENDOCRINE/METABOLIC Hx Diabetes Mellitus Type 2: Yes - HEMATOLOGICAL/ONCOLOGICAL Hx Blood Disorders: No - INTEGUMENTARY Hx Dermatological Problems: No - MUSCULOSKELETAL/RHEUMATOLOGICAL Hx Arthritis: Yes - GASTROINTESTINAL Hx Gastritis: Yes - PSYCHIATRIC Hx Substance Use: No - SURGICAL HISTORY Hx Surgeries: Yes Hx Herniorrhaphy: Yes - ANESTHESIA Hx Anesthesia: No Hx Anesthesia Reactions: No Hx Malignant Hyperthermia: No Meds Allergies/Adverse Reactions: Allergies Allergy/AdvReac Type Severity Reaction Status Date / Time tomatoes AdvReac RASH Uncoded 03/08/17 18:48 Physical Exam - Constitutional Appears: No Acute Distress, Unkempt - Head Exam Head Exam: ATRAUMATIC, NORMAL INSPECTION, NORMOCEPHALIC - Eye Exam Eye Exam: EOMI, Normal appearance, PERRL Pupil Exam: NORMAL ACCOMODATION, PERRL - ENT Exam ENT Exam: Mucous Membranes Dry - Neck Exam Neck exam: Positive for: Full Rom - Respiratory Exam Respiratory Exam: NORMAL BREATHING PATTERN - Cardiovascular Exam Cardiovascular Exam: +S1, +S2 - GI/Abdominal Exam GI & Abdominal Exam: Normal Bowel Sounds, Soft. absent: Tenderness - Extremities Exam Extremities exam: Positive for: pedal pulses present. Negative for: calf tenderness - Neurological Exam Neurological exam: Altered, Oriented x3 - Psychiatric Exam Psychiatric exam: Flat Affect - Skin Skin Exam: Dry, Intact, Normal Color, Warm - Additional Findings Additional findings: Physical exam findings limited due to patient's lack of cooperation secondary to somnolence. Results - Vital Signs Recent Vital Signs: Last Vital Signs Temp 97.5 F L 03/08/17 23:00 Pulse 111 H 03/08/17 23:00 Resp 20 03/08/17 23:00 BP 165/102 H 03/08/17 23:00 Pulse Ox 95 03/08/17 23:00 - Labs Result Diagrams: 03/08/17 19:30 03/08/17 19:30 Labs: Laboratory Results - last 24 hr 03/08/17 22:22 Blood Type A POSITIVE Antibody Screen Negative Assessment & Plan (1) Alcohol dependence Assessment and Plan: F/U AM labs, Coags UDS, Alcohol screen negative Ativan PRN for withdrawal Banana bag give in ED Maintenance fluids given; IV folic acid and Thiamine given NPO, Zofran Psych Consult- F/U reccs Patient will benefit from counseling services as well as a support group. Status: Acute (2) Hematemesis with nausea Assessment and Plan: Gastric occult blood negative. Follow up stool occult. Could not perform rectal exam in light of patient's somnolent presentation NPO PPI IV daily GI Consult to Dr. Street F/U reccs Status: Acute (3) Tachycardia Assessment and Plan: F/U D-Dimer Monitor on Tele Status: Acute (4) Hypertension Assessment and Plan: Patient administered Hydralazine 5mg Will monitor at this time. Will need to confirm home meds when patient is much more alert. Status: Chronic (5) Asthma Assessment and Plan: Duonebs PRN Will need to confirm home meds Status: Chronic (6) Prophylactic measure Assessment and Plan: SCDS Chemical prophylaxis contraindicated at this time. PPI daily Status: Acute
[2017-03-09] MEDS: Sodium Chloride 0.9% 1,000 ML IV SCH ×2 (00:12→14:13)
[2017-03-09] MEDS ORDERED: Albuterol-Ipratrop 3 mg / 0.5 (3 ml) UD INH PRN (06:00)
--- NOTE | 2017-03-09 08:08 | CARD ---
APPROVED REPORT EKG Measurement Heart [id number] <Conclusion> Sinus tachycardia Possible Left atrial enlargement Right axis deviation Left ventricular hypertrophy Cannot rule out Septal infarct, age undetermined Abnormal ECG
[2017-03-09 08:15] LABS: BASO % 0.2 % (0.0-2.0); HEMATOCRIT 39.5 % (35.0-51.0); LYMPH # 1.1 K/uL (1.0-4.3); LYMPH % 11.8 % (20.0-40.0); MEAN CELL VOLUME 92.2 fL (80.0-94.0); MEAN CORPUSCULAR HEMOGLOBIN 31.9 pg (27.0-31.0); MEAN CORPUSCULAR HGB CONC 34.6 g/dL (33.0-37.0); MEAN PLATELET VOLUME 7.6 fL (7.2-11.7); MONO # 0.7 K/uL (0.0-0.8); MONO % 8.2 % (0.0-10.0); RED CELL DISTRIBUTION WIDTH 14.2 % (11.5-14.5); WHITE BLOOD COUNT 8.9 K/uL (4.8-10.8)
[2017-03-09 08:39] LABS: CHLORIDE 102 mmol/L (98-107); SODIUM 138 mmol/L (132-148)
[2017-03-09 08:41] LABS: AST/SGOT 51 U/L (17-59); BILIRUBIN,TOTAL 0.8 mg/dL (0.2-1.3); CARBON DIOXIDE 17 mmol/L (22-30); GFR AFRICAN-AMERICAN > 60
[2017-03-09 08:42] LABS: ALB/GLOB RATIO 1.4 (1.0-2.1); ALKALINE PHOSPHATASE 45 U/L (38-126); ALT/SGPT 32 U/L (21-72); BLOOD UREA NITROGEN 6 mg/dL (9-20); GLUCOSE,RANDOM 82 mg/dL (75-110); MAGNESIUM 1.6 mg/dL (1.6-2.3); PHOSPHOROUS 2.9 mg/dL (2.5-4.5); TOTAL PROTEIN 6.9 g/dL (6.3-8.3)
--- NOTE | 2017-03-09 08:58 | RAD ---
HISTORY: Withdrawal COMPARISON: No prior. FINDINGS: LUNGS: Mild venous congestion. Left hilar prominence. Mild patchy increased markings at the left base. Small nodular density at the right lung base likely represents confluence of shadows with ribs and vessels. PLEURA: No significant pleural effusion identified, no pneumothorax apparent. CARDIOVASCULAR: Tortuous aorta. OSSEOUS STRUCTURES: Calcific tendinopathy of the right proximal humerus. VISUALIZED UPPER ABDOMEN: Normal. OTHER FINDINGS: None. IMPRESSION: Mild venous congestion. Left hilar prominence. Mild patchy increased markings at the left base. Small nodular density at the right lung base likely represents confluence of shadows with ribs and vessels.
[2017-03-09] MEDS: Thiamine 100 mg/ml Inj IV SCH (09:32)
[2017-03-09] MEDS: Potassium Chloride 20 mEq ER Tab PO SCH ×2 (09:33→17:17)
[2017-03-09 09:50] LABS: AMYLASE 57 U/L (30-110)
[2017-03-09] MEDS ORDERED: Iodixanol 320 MG/ML 100 ML BOTTLE IV ONE (09:54)
--- NOTE | 2017-03-09 10:33 | US ---
Abdominal ultrasound History: Hematemesis. Comparison: CT scan dated 01/27/2017 Technique: Real-time sonography was performed through the abdomen. Findings: Liver: 16.8 centimeters in length. Increased echogenicity suggestive for fatty infiltration versus hepatic parenchymal disease. Clinical correlation. Gallbladder: Preserved. Normal wall thickness of 2 millimeters. Common bile duct measures 2.7 millimeters, within normal limits. Pancreas: Not well visualized. Visualized portions appear somewhat echogenic. Spleen: Not imaged on this study. Visualized aorta and IVC are grossly preserved. Right kidney: 11.3 x 5.3 x 4.0 centimeters. No calculi or hydronephrosis. Left Kidney: 11.0 x 5.8 x 5.7 centimeters. No calculi or hydronephrosis. Midpole hypoechoic cyst measuring 2.2 x 1.6 x 1.5 centimeters. Suggestion of a punctate peripheral calcification at the level of the cyst wall. Impression: Increased echogenicity of the hepatic parenchymal cortex suggestive for fatty infiltration versus hepatic parenchymal disease. Clinical correlation. Limited visualization of the pancreas. Visualized portions appear somewhat echogenic. Clinical correlation. Spleen not imaged on this study. Midpole hypoechoic left renal cyst measuring up to 2.2 centimeters with a suggestion of peripheral calcification. This may be better evaluated with multiphasic CT scan if clinically indicated.
--- NOTE | 2017-03-09 11:08 | CT ---
CTA chest PE protocol Indication: Tachycardia, elevated D-dimer Technique: Contiguous axial images were obtained through the chest with intravenous contrast enhancement. Sagittal and coronal reconstructions were generated and reviewed. This CT exam was performed using 1 or more of the falling dose reduction techniques: Automated exposure control, adjustment of the MAA and/or kV according to patient size, and/or use of iterative reconstruction technique. IV Contrast: 100 mL Visipaque Radiation dose (DLP): 257.64 MGy-cm. Comparison: Chest x-ray performed 03/08/17 Findings: Visualized portions of the inferior thyroid gland appear unremarkable. The mediastinal and hilar vascular structures appear within normal limits. Cardiomegaly. Dense coronary artery calcifications. No large central or segmental pulmonary embolus evident. Mild emphysematous changes. Right middle lobe atelectasis or pneumonia. No pleural effusion. No pneumothorax. No suspicious pulmonary nodules measuring greater than 5 mm. Small hiatal hernia. Gastroesophageal reflux. Limited visualized portions of the upper abdomen appear grossly unremarkable. Right 5th anterior rib and left 10th posterior rib fractures, age indeterminate. Right 9th and 10th chronic appearing right rib fracture deformities. Impression: No large central or segmental pulmonary embolus evident. Right middle lobe atelectasis or pneumonia. Mild emphysematous changes. Right 5th anterior rib and left 10th posterior rib fractures, age indeterminate. Right 9th and 10th chronic appearing right rib fracture deformities. Correlate clinically. Small hiatal hernia. Gastroesophageal reflux.
--- NOTE | 2017-03-09 12:16 | CP.PCM.PN ---
<Caitlyn Schultz - Last Filed: 03/09/17 12:07> Subjective - Date & Time of Evaluation Date of Evaluation: 03/09/17 Time of Evaluation: 07:00 - Subjective Subjective: Medicine Note for Dr. Patel Patient was seen and examined at bedside. Patient reports no acute pain. He reports he has not drank alcohol for a few days, but he came in due to uncontrollable hand tremors. Denied fever, chills, headache, chest pain, abdominal pain, n/v/d/c, or urinary symptoms. Objective - Vital Signs/Intake and Output Vital Signs (last 24 hours): Temp Pulse Resp BP Pulse Ox 98.3 F 99 H 20 150/90 96 03/09/17 07:55 03/09/17 08:19 03/09/17 07:55 03/09/17 07:55 03/09/17 07:55 - Medications Medications: Current Medications Albuterol/Ipratropium (Duoneb 3 Mg/0.5 Mg (3 Ml) Ud) 3 ml INH RQ6 PRN PRN Reason: Wheezing Aspirin (Aspirin Chewable) 81 mg PO DAILY [facility] Chlordiazepoxide (Librium) 25 mg PO Q6 [facility] Sodium Chloride (Sodium Chloride 0.9%) 1,000 mls @ 100 mls/hr IV .Q10H [facility] Last Admin: 03/09/17 00:12 Dose: 100 mls/hr Folic Acid 1 mg/ Sodium (Chloride) 100.2 mls @ 60 mls/hr IV DAILY [facility] Last Admin: 03/09/17 09:31 Dose: 60 mls/hr Lisinopril (Zestril) 40 mg PO DAILY [facility] Nifedipine (Procardia Xl) 60 mg PO DAILY [facility] Ondansetron HCl (Zofran Inj) 4 mg IVP Q6H PRN PRN Reason: Nausea/Vomiting Pantoprazole Sodium (Protonix Inj) 40 mg IVP DAILY [facility] Last Admin: 03/09/17 09:31 Dose: 40 mg Potassium Chloride (K-Dur 20 Meq Er Tab) 40 meq PO BID [facility] Stop: 03/10/17 10:01 Last Admin: 03/09/17 09:33 Dose: 40 meq Rosuvastatin Calcium (Crestor) 40 mg PO DAILY [facility] Tamsulosin HCl (Flomax) 0.4 mg PO DAILY [facility] Thiamine HCl (Vitamin B1 Inj) 100 mg IV DAILY [facility] Last Admin: 03/09/17 09:32 Dose: 100 mg - Labs Labs: 03/09/17 07:58 03/09/17 07:58 PT 11.5 SECONDS (9.7-12.2) 03/09/17 07:58 INR 1.0 03/09/17 07:58 APTT 26 SECONDS (21-34) 03/09/17 07:58 - Constitutional Appears: No Acute Distress, Unkempt - Head Exam Head Exam: NORMAL INSPECTION, NORMOCEPHALIC - Eye Exam Eye Exam: EOMI, Normal appearance, PERRL Pupil Exam: NORMAL ACCOMODATION - ENT Exam ENT Exam: Mucous Membranes Dry - Neck Exam Neck Exam: Normal Inspection - Respiratory Exam Respiratory Exam: Clear to Ausculation Bilateral, NORMAL BREATHING PATTERN - Cardiovascular Exam Cardiovascular Exam: REGULAR RHYTHM, RRR, +S1, +S2 - GI/Abdominal Exam GI & Abdominal Exam: Soft, Tenderness, Normal Bowel Sounds Additional comments: no ascites - Extremities Exam Extremities Exam: Normal Inspection. absent: Pedal Edema, Tenderness - Neurological Exam Neurological Exam: Alert, Awake, Oriented x3 Additional comments: BL UE tremors, no asterixis - Skin Skin Exam: Dry, Intact, Normal Color, Warm Assessment and Plan - Assessment and Plan (Free Text) Plan: Hematemesis with nausea Assessment and Plan: Gastric occult blood + Initially was NPO, heart healthy diet started Hemoglobin stable PPI IV daily GI Consult to Dr. Street- help appreciated F/U Stool occult Status: Acute Alcohol dependence Assessment and Plan: UDS, Alcohol screen negative Patient will benefit from counseling services as well as a support group. Maintenance fluids given; IV folic acid and Thiamine given Started on Librium 25mg PO Q6H [facility] Zofran PRN Psych Consult- F/U reccs Status: Acute Tachycardia Assessment and Plan: Monitor on Tele D-Dimer- 583 CTA - negative for PE, possible RML atelectasis or pneumonia. Will continue to monitor labs. Status: Acute Hypertension Assessment and Plan: Resumed home medications: ASA 81mg PO daily, Lisinopril 40mg PO daily, Procardia XL 60mg PO daily Status: Chronic HLD Assessment and Plan: Continued home medications: Crestor 40mg PO daily Status: Chronic BPH Assessment and Plan: Flomax 0.4mg PO daily Status: Chronic Asthma Assessment and Plan: Duonebs PRN Status: Chronic Prophylactic measure Assessment and Plan: SCDS Chemical prophylaxis contraindicated at this due to possible gastric bleed PPI daily DW Marion Lidna DO, PGY-1 <Wilder Patel Jr. - Last Filed: 03/14/17 16:35> Objective - Vital Signs/Intake and Output Vital Signs (last 24 hours): Temp Pulse Resp BP Pulse Ox 97.5 F L 85 16 155/89 H 100 03/11/17 09:20 03/11/17 16:00 03/11/17 09:50 03/11/17 09:50 03/11/17 09:50 - Labs Labs: 03/11/17 07:33 03/11/17 07:33 PT 11.5 SECONDS (9.7-12.2) 03/09/17 07:58 INR 1.0 03/09/17 07:58 APTT 26 SECONDS (21-34) 03/09/17 07:58 Attending/Attestation - Attestation I have personally seen and examined this patient.: Yes I have fully participated in the care of the patient.: Yes I have reviewed all pertinent clinical information, including history, physical exam and plan: Yes Notes (Text): 03/14/17 16:35 Agree with resident note and findings
--- NOTE | 2017-03-09 16:13 | PCM.PSYCH ---
Initial Psychiatric Evaluation - Initial Psychiatric Evaluation Type of Admission: Voluntary Legal Status: Capacity Chief Complaint (in patient's own words): I was feeling anxious.' History of Present Illness and Precipitating Events: The patient was seen and discussed with the team and the chart was reviewed. Consultation is requested for his alcohol use. Patient is a 62 y.o. male admitted for worsening hand tremors due to chronic alcohol use. Patient is currently experiencing alcohol withdrawal symptoms and hand tremors. Patient has alcohol withdrawal symptoms and hand tremors. Patient was admitted into ED for worsening hand tremors. Patient reports drinking every day till 2 years ago when he went to rehab. After rehab, patient reports drinking 1-2 times a week, a 6 pack of beer every time he drinks and "once in a while vodka." Patient denies suicidal ideations, auditory visual hallucinations, racing thoughts, flight of ideas, and feelings of being followed or watched. Patient denies any nausea, vomiting, or diarrhea. Patient reported to ED physician of "bright red emesis" but denies any recent blood in vomit to curriculum writer. Patient reports urinary incontinence currently. He reports anxiety but at times panic attacks. PMH Arthritis, Asthma, Benign Prostatic Hyperplasia, Cardiac Aneurysm, CHF, COPD, Diabetes (Borderline), Gastritis, HTN, Hypercholesterolemia, Seizures Surgical History Hernia Repair Past Psych Hx Denies Family Psych hx Denies Social Hx Lives [facility] in [place], on disability. Current Medications: Active Medications Generic Name Dose Route Start Last Admin Trade Name Freq PRN Reason Stop Dose Admin Albuterol/Ipratropium 3 ml 03/09/17 06:00 Duoneb 3 Mg/0.5 Mg (3 Ml) Ud INH RQ6 PRN Wheezing Aspirin 81 mg 03/10/17 10:00 Aspirin Chewable PO DAILY [facility] Chlordiazepoxide 25 mg 03/09/17 12:00 03/09/17 12:40 Librium PO 25 mg Q6 [facility] Administration Sodium Chloride 1,000 mls @ 100 mls/hr 03/08/17 23:30 03/09/17 14:13 Sodium Chloride 0.9% IV 100 mls/hr .Q10H [facility] Administration Folic Acid 1 mg/ Sodium 100.2 mls @ 60 mls/hr 03/09/17 10:00 03/09/17 09:31 Chloride IV 60 mls/hr DAILY [facility] Administration Lisinopril 40 mg 03/10/17 10:00 Zestril PO DAILY [facility] Nicotine 1 patch 03/10/17 10:00 Nicoderm Cq TD DAILY [facility] Nifedipine 60 mg 03/10/17 10:00 Procardia Xl PO DAILY [facility] Ondansetron HCl 4 mg 03/09/17 06:03 Zofran Inj IVP Q6H PRN Nausea/Vomiting Pantoprazole Sodium 40 mg 03/09/17 10:00 03/09/17 09:31 Protonix Inj IVP 40 mg DAILY [facility] Administration Potassium Chloride 40 meq 03/09/17 10:00 03/09/17 09:33 K-Dur 20 Meq Er Tab PO 03/10/17 10:01 40 meq BID [facility] Administration Rosuvastatin Calcium 40 mg 03/10/17 10:00 Crestor PO DAILY [facility] Sucralfate 1 gm 03/09/17 22:00 Carafate Oral Susp PO [facility] Tamsulosin HCl 0.4 mg 03/10/17 10:00 Flomax PO DAILY [facility] Thiamine HCl 100 mg 03/09/17 10:00 03/09/17 09:32 Vitamin B1 Inj IV 100 mg DAILY [facility] Administration Past Psychiatric History - Past Psychiatric History Previous Treatment History: None Pertinent Medical Hx (Current Medical&Sleep Prob, Allergies): Allergies Allergy/AdvReac Type Severity Reaction Status Date / Time tomatoes AdvReac RASH Uncoded 03/08/17 18:48 Tiotropium [Spiriva] 18 mcg INH RQ24 #0 cap 01/07/16 Albuterol Sulfate [Proair Respiclick] 90 mcg IH DAILY 10/02/16 Aspirin [Aspirin Chewable] 81 mg PO DAILY 10/02/16 Budesonide/Formoterol Fumarate [Symbicort 160-4.5 Mcg Inhaler] 1 aer IH BID 10/16 Lisinopril [Zestril] 40 mg PO DAILY 10/02/16 Nifedipine [Adalat cc] 60 mg PO DAILY 10/02/16 Rosuvastatin Calcium [Crestor] 40 mg PO DAILY 10/02/16 Tamsulosin [Flomax] 0.4 mg PO DAILY 10/02/16 Thiamine HCl 100 mg PO DAILY 10/02/16 Naproxen [Naprosyn] 1 tab PO BID PRN #25 tab 10/31/16 Ciprofloxacin [Cipro] 250 mg PO BID #10 tab 01/29/17 Omeprazole 40 mg PO DAILY #15 capsule. 01/29/17 Hydrocortisone 1% Cream [Cortizone 1% Cream] 1 appl TP BID #1 tube 03/06/17 hydrOXYzine HCl [Atarax] 25 mg PO HS #20 tab 03/06/17 Review of Systems - Review of Systems All systems: reviewed and no additional remarkable complaints except - Psychiatric Psychiatric: Anxiety, Irritability Mental Status Examination - Personal Presentation Personal Presentation: Looks stated age - Affect Affect: Constricted - Motor Activity Motor Activity: Calm - Reliability in Providing Information Reliability in Providing Information: Good - Speech Speech: Organized - Mood Mood: Anxious - Formal Thought Process Formal Thought Process: No Impairment - Obsessions/Compulsions Obsessions: No Compulsions: No - Cognitive Functions Orientation: Person, Place, Situation, Time Sensorium: Alert Attention/Concentration: Attentive Abstract Thinking: [place] Estimate of Intelligence: Below average Judgement: Imparied, as evidence by: Poor judgement, Intact, as evidence by: Good judgement - Risk Risk: Withdrawal, Diminished functioning - Limitations Limitations: Living alone DSM 5 DX - DSM 5 DSM 5 Diagnosis: Alcohol use disorder severe Alcohol withdrawal Anxiety disorder unspecified - Recommended/Plan of Treatment Treatment Recommendations and Plan of Treatment: Alcohol use disorder severe CBT Psychoeducation Supportive therapy, individual therapy Use [place] for abstinence Alcohol withdrawal CBT Psychoeducation Supportive therapy, individual therapy Librium prn Folic Acid/MVI/Thiamine Anxiety disorder unspecified CBT Psychoeducation Supportive therapy, individual therapy Start Trazodone 50 mg PO Q HS - Smoking Cessation Smoking Cessation Initiated: No
[2017-03-09 17:41] LABS: CARCINOEMBRYONIC ANTIGEN 4.4 ng/mL (0-3.0)
[2017-03-09 17:45] LABS: CA 19-9 10.6 U/mL (0-37)
[2017-03-09] MEDS: Sucralfate 1 gm/10 ml Oral Susp UD PO SCH (21:08)
[2017-03-10] MEDS: Sodium Chloride 0.9% 1,000 ML IV SCH ×3 (00:14→13:21)
--- NOTE | 2017-03-10 05:49 | CP.PCM.PN ---
<Caitlyn Schultz - Last Filed: 03/10/17 11:18> Subjective - Date & Time of Evaluation Date of Evaluation: 03/10/17 Time of Evaluation: 08:00 - Subjective Subjective: Medicine Note for Dr. Patel Patient was seen and examined at bedside. No acute complaints. Still has some tremors. Denied fever, chills, headache, chest pain, abdominal pain, n/v/d/c, or urinary symptoms. Objective - Vital Signs/Intake and Output Vital Signs (last 24 hours): Temp Pulse Resp BP Pulse Ox 98 F 79 20 147/85 98 03/09/17 23:30 03/10/17 01:41 03/09/17 23:30 03/09/17 16:06 03/09/17 23:30 - Medications Medications: Current Medications Albuterol/Ipratropium (Duoneb 3 Mg/0.5 Mg (3 Ml) Ud) 3 ml INH RQ6 PRN PRN Reason: Wheezing Aspirin (Aspirin Chewable) 81 mg PO DAILY [facility] Chlordiazepoxide (Librium) 25 mg PO Q6 [facility] Last Admin: 03/10/17 00:14 Dose: 25 mg Sodium Chloride (Sodium Chloride 0.9%) 1,000 mls @ 100 mls/hr IV .Q10H [facility] Last Admin: 03/10/17 00:14 Dose: 100 mls/hr Folic Acid 1 mg/ Sodium (Chloride) 100.2 mls @ 60 mls/hr IV DAILY [facility] Last Admin: 03/09/17 09:31 Dose: 60 mls/hr Lisinopril (Zestril) 40 mg PO DAILY [facility] Nicotine (Nicoderm Cq) 1 patch TD DAILY [facility] Nifedipine (Procardia Xl) 60 mg PO DAILY [facility] Ondansetron HCl (Zofran Inj) 4 mg IVP Q6H PRN PRN Reason: Nausea/Vomiting Pantoprazole Sodium (Protonix Inj) 40 mg IVP DAILY [facility] Last Admin: 03/09/17 09:31 Dose: 40 mg Potassium Chloride (K-Dur 20 Meq Er Tab) 40 meq PO BID [facility] Stop: 03/10/17 10:01 Last Admin: 03/09/17 17:17 Dose: 40 meq Rosuvastatin Calcium (Crestor) 40 mg PO DAILY [facility] Sucralfate (Carafate Oral Susp) 1 gm PO ACBHS [facility] Last Admin: 03/09/17 21:08 Dose: 1 gm Tamsulosin HCl (Flomax) 0.4 mg PO DAILY [facility] Thiamine HCl (Vitamin B1 Inj) 100 mg IV DAILY [facility] Last Admin: 03/09/17 09:32 Dose: 100 mg Trazodone HCl (Desyrel) 50 mg PO HS [facility] - Labs Labs: 03/09/17 07:58 03/09/17 07:58 PT 11.5 SECONDS (9.7-12.2) 03/09/17 07:58 INR 1.0 03/09/17 07:58 APTT 26 SECONDS (21-34) 03/09/17 07:58 - Constitutional Appears: No Acute Distress - Head Exam Head Exam: NORMAL INSPECTION, NORMOCEPHALIC - Eye Exam Eye Exam: EOMI, Normal appearance, PERRL Pupil Exam: NORMAL ACCOMODATION - ENT Exam ENT Exam: Mucous Membranes Moist - Neck Exam Neck Exam: Normal Inspection - Respiratory Exam Respiratory Exam: Clear to Ausculation Bilateral, NORMAL BREATHING PATTERN. absent: Wheezes - Cardiovascular Exam Cardiovascular Exam: REGULAR RHYTHM, RRR, +S1, +S2 - GI/Abdominal Exam GI & Abdominal Exam: Soft, Normal Bowel Sounds. absent: Distended, Tenderness - Extremities Exam Extremities Exam: Normal Inspection. absent: Pedal Edema, Tenderness - Neurological Exam Neurological Exam: Alert, Awake, Oriented x3 - Psychiatric Exam Psychiatric exam: Normal Affect, Normal Mood - Skin Skin Exam: Dry, Intact, Normal Color, Warm Assessment and Plan - Assessment and Plan (Free Text) Plan: Hematemesis with nausea Assessment and Plan: Gastric occult blood + Heart healthy diet started Hemoglobin stable PPI IV daily GI Consult to Dr. Street- AFP, CA-19, CEA: 4.4. Patient is to be NPO past midnight tonight, for EGD on 03/11/17. Stool occult - negative Status: Acute Alcohol dependence Assessment and Plan: UDS, Alcohol screen negative Patient will benefit from counseling services as well as a support group. Maintenance fluids given; IV folic acid and Thiamine given Started on Librium 25mg PO Q6H [facility]- monitor LFTs Zofran PRN Psych Consult- As per psych, start Trazodone 50mg PO QHS Status: Acute Tachycardia Assessment and Plan: Monitor on Tele D-Dimer- 583 CTA - negative for PE, possible RML atelectasis or pneumonia. Will continue to monitor labs. Status: Acute Hypertension Assessment and Plan: Resumed home medications: ASA 81mg PO daily, Lisinopril 40mg PO daily, Procardia XL 60mg PO daily Status: Chronic HLD Assessment and Plan: Continued home medications: Crestor 40mg PO daily Status: Chronic BPH Assessment and Plan: Flomax 0.4mg PO daily Status: Chronic Asthma Assessment and Plan: Duonebs PRN Status: Chronic Prophylactic measure Assessment and Plan: SCDS Chemical prophylaxis contraindicated at this due to possible gastric bleed PPI daily PT EVAL for BL LE weakness DW Marion Linda DO, PGY-1 <Wilder Patel Jr. - Last Filed: 03/14/17 16:36> Objective - Vital Signs/Intake and Output Vital Signs (last 24 hours): Temp Pulse Resp BP Pulse Ox 97.5 F L 85 16 155/89 H 100 03/11/17 09:20 03/11/17 16:00 03/11/17 09:50 03/11/17 09:50 03/11/17 09:50 - Labs Labs: 03/11/17 07:33 03/11/17 07:33 PT 11.5 SECONDS (9.7-12.2) 03/09/17 07:58 INR 1.0 03/09/17 07:58 APTT 26 SECONDS (21-34) 03/09/17 07:58 Attending/Attestation - Attestation I have personally seen and examined this patient.: Yes I have fully participated in the care of the patient.: Yes I have reviewed all pertinent clinical information, including history, physical exam and plan: Yes Notes (Text): 03/14/17 16:36 Agree with resident note and findings
[2017-03-10] MEDS: Sucralfate 1 gm/10 ml Oral Susp UD PO SCH ×2 (06:32→21:22)
[2017-03-10 08:05] LABS: BASO % 0.5 % (0.0-2.0); EOS # 0.1 K/uL (0.0-0.7); EOS % 1.1 % (0.0-4.0); HEMATOCRIT 40.8 % (35.0-51.0); LYMPH # 1.3 K/uL (1.0-4.3); LYMPH % 19.3 % (20.0-40.0); MEAN CELL VOLUME 92.9 fL (80.0-94.0); MEAN CORPUSCULAR HEMOGLOBIN 31.2 pg (27.0-31.0); MEAN CORPUSCULAR HGB CONC 33.5 g/dL (33.0-37.0); MEAN PLATELET VOLUME 7.5 fL (7.2-11.7); MONO # 0.5 K/uL (0.0-0.8); MONO % 7.7 % (0.0-10.0); RED CELL DISTRIBUTION WIDTH 14.2 % (11.5-14.5)
--- NOTE | 2017-03-10 08:13 | CON ---
DATE: 03/09/2017 HISTORY OF PRESENT ILLNESS: I was called for the GI consultation by the admitting medical team. The patient was seen and fully examined on 03/09/2017 as requested by the admitting MD. The entire chart is reviewed including, but not limited to the most recent lab and radiologic study results, current and previous medication list, current and previous medical events, allergies to medication list as well as all the available current and previous medical records. Case was discussed with the staff at length on the floor. This is a 62 years old male, who was admitted to the hospital through the emergency room with the main complaint of severe crampy abdominal pain, recurrent nausea and vomiting, with tremors and shaking both, drinking of excessive amount of alcohol. The patient drinks on a daily basis according to the records and his statement. The patient also stated he had vomiting of some reddish material few hours prior to admission, but notable to minimal chest pain or palpitation. PAST MEDICAL HISTORY: Including, but not limited to: 1. Alcoholism. 2. Chronic lower back pain syndrome. 3. Bronchial asthma. 4. Diabetes mellitus, borderline. 5. Congestive heart failure with hypertension. 6. Hyperlipidemia. 7. Seizure disorder believed to be alcohol related. 8. Status post abdominal hernia repair. FAMILY HISTORY: Unknown. SOCIAL HISTORY: Positive for cigarette smoking as well as excessive alcohol intake on a daily basis. CURRENT MEDICATIONS: Medication list were reviewed. ALLERGIC TO MEDICATIONS: UNCLEAR. After being admitted to the hospital, initial blood workup showed normal hemoglobin and hematocrit as well as normal platelet count, but with elevated white blood cells at 11.4. Blood glucose level elevated to 166 with low CO2 content to 15 indicative of metabolic acidosis and possible rehydration. PHYSICAL EXAMINATION: GENERAL: A 62-year-old male, with tremors. VITAL SIGNS: Afebrile, pulse of 110, respiratory rate 20 to 22, and blood pressure of 154/92. HEENT: Shows dry pale oral mucous membrane, with mildly bilateral icteric sclerae. LYMPH NODE: No lymphadenitis or lymphadenopathy. LUNGS: Scattered, mild crepitation, decreased air entry at bases. HEART: Positive S1 and S2 with increased rate. ABDOMEN: Soft with generalized tenderness. Bowel sounds are hypoactive. No appreciated mass or organomegaly. No rebound tenderness or guarding. IMPRESSION: 1. Upper gastrointestinal bleeding, none at this point. 2. Alcoholism with possible alcohol withdrawal syndrome. 3. No significant neurological deficits, sensory or motor. SUGGESTION: 1. I agree with your plan. 2. Rehydration. 3. Correct any underlying electrolyte imbalance. 4. Serum lipase and amylase level. 5. *------*. 6. Further recommendation to follow. 7. Endoscopic evaluation of the upper GI tract when the patient is more stable clinically. 8. *------*. Thank you for letting me participate in your patient's care management. Nyla Costello MD
[2017-03-10 08:33] LABS: CHLORIDE 103 mmol/L (98-107)
[2017-03-10 08:34] LABS: POTASSIUM 3.2 mmol/L (3.6-5.2); SODIUM 136 mmol/L (132-148)
[2017-03-10 08:36] LABS: ALB/GLOB RATIO 1.3 (1.0-2.1); ALKALINE PHOSPHATASE 41 U/L (38-126); ALT/SGPT 25 U/L (21-72); AST/SGOT 47 U/L (17-59); BILIRUBIN,TOTAL 0.9 mg/dL (0.2-1.3); BLOOD UREA NITROGEN 4 mg/dL (9-20); CALCIUM 8.5 mg/dl (8.6-10.4); CARBON DIOXIDE 23 mmol/L (22-30); GFR AFRICAN-AMERICAN > 60; GLUCOSE,RANDOM 82 mg/dL (75-110); PHOSPHOROUS 1.9 mg/dL (2.5-4.5); TOTAL PROTEIN 6.4 g/dL (6.3-8.3)
[2017-03-10 08:37] LABS: MAGNESIUM 1.6 mg/dL (1.6-2.3)
[2017-03-10] MEDS: NIFEdipine 60 mg ER Tab PO SCH (09:29)
[2017-03-10] MEDS: Potassium Chloride 20 mEq ER Tab PO SCH (09:29)
[2017-03-10] MEDS: Thiamine 100 mg/ml Inj IV SCH (09:30)
--- NOTE | 2017-03-10 14:16 | PN ---
LOCATION: , bed B. SUBJECTIVE: This is a 62-year-old male, seen and examined, on rounds today appeared to be more stable. Fully awake, alert, oriented. The patient still has some episodes of nausea and dyspepsia, but no reported vomiting or active bleeding. Most recent lab result showed normal CBC so far today with low potassium 3.2 for which KCl is given with low BUN and creatinine and low calcium of 8.5, low phosphorus 1.9 with mildly reported elevated CEA 4.4. Stool for occult blood was reported to be negative, but gastric occult blood positive. PHYSICAL EXAMINATION: GENERAL: A 62-year-old male. VITAL SIGNS: Afebrile with pulse of 76, respiratory rate 20-22, blood pressure of 124/76. HEENT: Showed pale and dry oral mucous membrane. Nonicteric sclerae. LUNGS: Few scattered crepitation. Decreased air entry at bases. HEART: Positive S1 and S2. ABDOMEN: Soft. Bowel sounds are present, with slight generalized tenderness. No mass or organomegaly. No rebound tenderness or guarding. RECTAL: The patient refused. EXTREMITIES: Without significant edema, clubbing, or cyanosis. NEUROLOGIC: No reported new neurological deficits, sensory, or motor. IMPRESSION: 1. Reported recent gastrointestinal bleeding. 2. Alcoholism. 3. Alcoholic liver disease by recent history. 4. Known history of bronchial asthma. 5. Chronic lower back pain syndrome. 6. Diabetes mellitus as well as hyperlipidemia. 7. History of seizure disorder, most likely alcohol related. SUGGESTIONS: 1. Agree with your plan. 2. The patient is for upper endoscopy. 3. Rehydration, proton pump inhibitors. 4. Reglan IV. Will follow up closely with you. Nyla Costello MD
[2017-03-10] MEDS ORDERED: Potassium Chloride 20 mEq/15 ml LIQ UD PO ONE (20:00)
[2017-03-11 00:40] VITALS: TEMP 97.5
[2017-03-11] MEDS: Sodium Chloride 0.9% 1,000 ML IV SCH (01:34)
[2017-03-11] MEDS: Sucralfate 1 gm/10 ml Oral Susp UD PO SCH (06:30)
[2017-03-11 07:47] LABS: BASO % 0.3 % (0.0-2.0); EOS # 0.1 K/uL (0.0-0.7); EOS % 2.4 % (0.0-4.0); HEMATOCRIT 40.3 % (35.0-51.0); LYMPH # 1.8 K/uL (1.0-4.3); LYMPH % 35.7 % (20.0-40.0); MEAN CELL VOLUME 93.8 fL (80.0-94.0); MEAN CORPUSCULAR HEMOGLOBIN 31.6 pg (27.0-31.0); MEAN CORPUSCULAR HGB CONC 33.7 g/dL (33.0-37.0); MEAN PLATELET VOLUME 7.7 fL (7.2-11.7); MONO # 0.4 K/uL (0.0-0.8); WHITE BLOOD COUNT 4.9 K/uL (4.8-10.8)
[2017-03-11 08:43] LABS: ALB/GLOB RATIO 1.2 (1.0-2.1); ALKALINE PHOSPHATASE 44 U/L (38-126); ALT/SGPT 24 U/L (21-72); AST/SGOT 39 U/L (17-59); BILIRUBIN,TOTAL 0.8 mg/dL (0.2-1.3); BLOOD UREA NITROGEN 5 mg/dL (9-20); CALCIUM 8.8 mg/dl (8.6-10.4); CARBON DIOXIDE 25 mmol/L (22-30); CHLORIDE 106 mmol/L (98-107); GFR AFRICAN-AMERICAN > 60; GLUCOSE,RANDOM 92 mg/dL (75-110); MAGNESIUM 1.7 mg/dL (1.6-2.3); PHOSPHOROUS 2.4 mg/dL (2.5-4.5); POTASSIUM 3.7 mmol/L (3.6-5.2); SODIUM 145 mmol/L (132-148); TOTAL PROTEIN 6.8 g/dL (6.3-8.3)
[2017-03-11] MEDS ORDERED: Propofol 10 mg/ml Inj (20 ML) ONE (09:07)
[2017-03-11] MEDS ORDERED: Midazolam 2 MG/2 ML VIAL ONE (09:07)
[2017-03-11 10:10] VITALS: O2SAT 100
[2017-03-11 10:12] VITALS: BP 155/89; RESP 16
[2017-03-11] MEDS: Thiamine 100 mg/ml Inj IV SCH (10:25)
--- NOTE | 2017-03-11 11:05 | CP.PCM.DIS ---
Provider - Provider Date of Admission: 03/08/17 21:44 Attending physician: Wilder Patel Jr, MD Time Spent in preparation of Discharge (in minutes): 45 Hospital Course - Lab Results Lab Results: Most Recent Lab Values WBC 4.9 K/uL (4.8-10.8) 03/11/17 07:33 RBC 4.29 Mil/uL (4.40-5.90) L 03/11/17 07:33 Hgb 13.6 g/dL (12.0-18.0) 03/11/17 07:33 Hct 40.3 % (35.0-51.0) 03/11/17 07:33 MCV 93.8 fL (80.0-94.0) 03/11/17 07: MCH 31.6 pg (27.0-31.0) H 03/11/17 07:33 MCHC 33.7 g/dL (33.0-37.0) 03/11/17 07:33 RDW 14.0 % (11.5-14.5) 03/11/17 07:33 Plt Count 214 K/uL (130-400) 03/11/17 07:33 MPV 7.7 fL (7.2-11.7) 03/11/17 07:33 Neut % (Auto) 53.6 % (50.0-75.0) 03/11/17 07:33 Lymph % (Auto) 35.7 % (20.0-40.0) 03/11/17 07:33 [place] % (Auto) 8.0 % (0.0-10.0) 03/11/17 07:33 Eos % (Auto) 2.4 % (0.0-4.0) 03/11/17 07:33 Baso % (Auto) 0.3 % (0.0-2.0) 03/11/17 07:33 Neut # 2.6 K/uL (1.8-7.0) 03/11/17 07:33 Lymph # 1.8 K/uL (1.0-4.3) 03/11/17 07:33 [place] # 0.4 K/uL (0.0-0.8) 03/11/17 07:33 Eos # 0.1 K/uL (0.0-0.7) 08/10/17 07:33 Baso # 0.0 K/uL (0.0-0.2) 03/11/17 07:33 Neutrophils % (Manual) 87 % (50-75) H 03/08/17 19:30 Band Neutrophils % 4 % (0-2) H 03/08/17 19:30 Lymphocytes % (Manual) 4 % (20-40) L 03/08/17 19:30 Monocytes % (Manual) 5 % (0-10) 03/08/17 19:30 Platelet Estimate Normal (NORMAL) 03/08/17 19:30 PT 11.5 SECONDS (9.7-12.2) 03/09/17 07:58 INR 1.0 03/09/17 07:58 APTT 26 SECONDS (21-34) 03/09/17 07:58 D-Dimer, Quantitative 583 ng/mlDDU (0-243) H 03/09/17 07:58 Sodium 145 mmol/L (132-148) 03/11/17 07:33 Potassium 3.7 mmol/L (3.6-5.2) 03/11/17 07:33 Chloride 106 mmol/L (98-107) 03/11/17 07:33 Carbon Dioxide 25 mmol/L (22-30) 03/11/17 07:33 Anion Gap 17 (10-20) 03/11/17 07:33 BUN 5 mg/dL (9-20) L 03/11/17 07:33 Creatinine 0.5 MG/DL (0.8-1.5) L 03/11/17 07:33 Est GFR ( Amer) > 60 03/11/17 07:33 Est GFR (Non-Af Amer) > 60 03/11/17 07:33 Random Glucose 92 mg/dL (75-110) 03/11/17 07:33 Calcium 8.8 mg/dl (8.6-10.4) 03/11/17 07:33 Phosphorus 2.4 mg/dL (2.5-4.5) L 03/11/17 07:33 Magnesium 1.7 mg/dL (1.6-2.3) 03/11/17 07:33 Total Bilirubin 0.8 mg/dL (0.2-1.3) 03/11/17 07:33 AST 39 U/L (17-59) 03/11/17 07:33 ALT 24 U/L (21-72) 03/11/17 07:33 Alkaline Phosphatase 44 U/L (38-126) 03/11/17 07:33 Total Protein 6.8 g/dL (6.3-8.3) 03/11/17 07:33 Albumin 3.8 g/dL (3.5-5.0) 03/11/17 07:33 Globulin 3.1 gm/dL (2.2-3.9) 03/11/17 07:33 Albumin/Globulin Ratio 1.2 (1.0-2.1) 03/11/17 07:33 Amylase 57 U/L (30-110) 03/09/17 07:58 Lipase 32 U/L (23-300) 03/09/17 07:58 Alpha Fetoprotein 1.8 ng/mL (0.0-7.5) 03/09/17 16:44 Carcinoembryonic Ag 4.4 ng/mL (0-3.0) H 03/09/17 16:44 CA 19-9 Antigen 10.6 U/mL (0-37) 03/09/17 16:44 Urine Color Yellow (YELLOW) 03/08/17 19:58 Urine Clarity Clear (Clear) 03/08/17 19:58 Urine pH 5.0 (5.0-8.0) 03/08/17 19:58 Ur Specific [place] 1.016 (1.003-1.030) 03/08/17 19:58 Urine Protein 1+ mg/dL (NEGATIVE) H 03/08/17 19:58 Urine Glucose (UA) 2+ mg/dL (Normal) H 03/08/17 19:58 Urine Ketones 2+ mg/dL (NEGATIVE) H 03/08/17 19:58 Urine Blood Negative (NEGATIVE) 03/08/17 19:58 Urine Nitrate Negative (NEGATIVE) 03/08/17 19:58 Urine Bilirubin Negative (NEGATIVE) 03/08/17 19:58 Urine Urobilinogen Normal mg/dL (0.2-1.0) 03/08/17 19:58 Ur Leukocyte Esterase Neg [place]ira/uL (Negative) 03/08/17 19:58 Urine WBC (Auto) 1 /hpf (0-5) 03/08/17 19:58 Urine RBC (Auto) 1 /hpf (0-3) 03/08/17 19:58 Ur Squamous Epith Cells < 1 /hpf (0-5) 03/08/17 19:58 Ur Transition Epith Cell < 1 /hpf (0-3) 03/08/17 19:58 Urine Bacteria Rare (<OCC) 03/08/17 19:58 Hyaline Casts 6-10 /lpf (0-2) H 03/08/17 19:58 Gastric Occult Blood Positive (NEGATIVE) H 03/08/17 19:29 Stool Occult Blood Negative (NEGATIVE) 03/10/17 07:18 Urine Opiates Screen Negative (NEGATIVE) 03/08/17 19:58 Urine Methadone Screen Negative (NEGATIVE) 03/08/17 19:58 Ur Barbiturates Screen Negative (NEGATIVE) 03/08/17 19:58 Ur Phencyclidine Scrn Negative (NEGATIVE) 03/08/17 19:58 Ur Amphetamines Screen Negative (NEGATIVE) 03/08/17 19:58 U Benzodiazepines Scrn Negative (NEGATIVE) 03/08/17 19:58 U Oth Cocaine Metabols Negative (NEGATIVE) 03/08/17 19:58 U Cannabinoids Screen Negative (NEGATIVE) 03/08/17 19:58 Alcohol, Quantitative < 10 mg/dl (0-10) 03/08/17 19:30 Blood Type A POSITIVE 03/08/17 22:22 Antibody Screen Negative 03/08/17 22:22 - Hospital Course Hospital Course: Upon Admission: Pt evaluated at approx 23:10PM on 03/08/17. CODE STATUS could not be determined at this time due to patient's mental status. CC: vomiting HPI: 62 year old male with PMHx significant for prior PR, COPD, seizure and alcohol abuse presents with several episodes of vomiting as per ED note. Patient was unable to provide much of a history and was quite somnolent during encounter after receiving ativan in the ED. Per ED note, Patient had several epsiodes on vomiting and then had "the shakes". Patient admitted to red colored emesis to ED physician however later denied when asked by commercial real estate underwriter. At this time, ROS was difficult to obtain due to somnolence. PMHx- as stated above PSHX-hernia repair Fam Hx- could not obtain. Social Hx- a few cigarettes a day for quite a bit of time; drinks alcohol on and off; denies drug use; currently unemployed Meds- Unsure Allergies- tomatoes PMD: [facility] Part of the history was supplemented from the MAR due to patient's presentation. Throughout Hospital Course: Patient was admitted for alcohol withdrawal. He was seen by Psychiatry which recommended [facility] protocol with the addition of librium and trazadone for anxiety. Patient reported hematemesis. Patient had an EGD performed with Dr. Street which showed: LA GRADE B esophagitis, small hiatal hernia, gastritis, duodenal erosions. Patient is to follow up with PMD in 3 -4 weeks for results of biopsy. He is to take Omeprazole 40mg by mouth daily for 3 months and Sucralfate 1gm by mouth twice a day. This is a brief summary of the patient's hospital course. Please review EMR for full record. Discharge Exam - Head Exam Head Exam: NORMAL INSPECTION, NORMOCEPHALIC - Eye Exam Eye Exam: EOMI, Normal appearance, PERRL Pupil Exam: NORMAL ACCOMODATION - ENT Exam ENT Exam: Mucous Membranes Moist - Respiratory Exam Respiratory Exam: Clear to PA & Lateral, NORMAL BREATHING PATTERN - Cardiovascular Exam Cardiovascular Exam: REGULAR RHYTHM, RRR - GI/Abdominal Exam GI & Abdominal Exam: Normal Bowel Sounds - Extremities Exam Extremities exam: normal inspection, pedal pulses present - Neurological Exam Neurological exam: Alert, Oriented x3 - Psychiatric Exam Psychiatric exam: Normal Affect, Normal Mood - Skin Skin Exam: Dry, Intact, Normal Color, Warm Discharge Plan - Discharge Medications Prescriptions: Aspirin [Aspirin Chewable] 81 mg PO DAILY #30 Folic Acid 1 mg PO DAILY #30 tab Lisinopril [Zestril] 40 mg PO DAILY #30 Multivitamin [Multi-Vitamin Daily] 1 each PO DAILY #30 tablet Nifedipine [Adalat cc] 60 mg PO DAILY #30 Omeprazole 40 mg PO DAILY #75 capsule. Rosuvastatin Calcium [Crestor] 40 mg PO DAILY #30 Sucralfate [Carafate Tab] 1 gm PO BID #60 tab Tamsulosin [Flomax] 0.4 mg PO DAILY #30 Thiamine HCl 100 mg PO DAILY #30 Tiotropium [Spiriva] 18 mcg INH RQ24 #1 inhaler - Follow Up Plan Condition: STABLE Disposition: HOME/ ROUTINE Additional Instructions: Patient is to continue taking the medications prescribed. The results of your EGD showed: LA GRADE B esophagitis, small hiatal hernia, gastritis, duodenal erosions . This requires you have to take Omeprazole 40mg by mouth daily for 3 months and Sucralfate 1gm by mouth twice a day. Please follow up with your PMD or the [facility] for the results of your biopsy from the EGD. You have been advised to decrease or eliminate your alcohol intake. Please return to the ED if your symptoms worsen or return. Referrals: Nyla Street [Staff Provider] - [facility] [Outside]
[2017-03-11] MEDS: NIFEdipine 60 mg ER Tab PO SCH (12:33)
[2017-03-11] MEDS ORDERED: Potassium & Sodium Phosphate PO SCH (13:00)
[2017-03-11 17:07] VITALS: PULSE 85
== END 2017-03-11 17:42 | disposition home or self-care (01) | DRG 750 ==
LOC: C.ER 18:37 → C.6T 21:44 → C.5T 03-09 09:51 → C.6T 03-09 09:54
PROVIDERS: ADMIT Internal Medicine; ATTEND Internal Medicine
PROC: HZ2ZZZZ Detoxification Services for Substance Abuse Treatment (ICD-10-PCS; principal; 2017-03-08)
PROC: HZ52ZZZ Individual Psychotherapy for Substance Abuse Treatment, Cognitive-Behavioral (ICD-10-PCS; 2017-03-08)
PROC: HZ59ZZZ Individual Psychotherapy for Substance Abuse Treatment, Supportive (ICD-10-PCS; 2017-03-08)
PROC: HZ56ZZZ Individual Psychotherapy for Substance Abuse Treatment, Psychoeducation (ICD-10-PCS; 2017-03-08)
DX: F10.239 Alcohol dependence with withdrawal, unspecified (principal); K92.0 Hematemesis; I11.0 Hypertensive heart disease with heart failure; I50.9 Heart failure, unspecified; J43.9 Emphysema, unspecified; F17.210 Nicotine dependence, cigarettes, uncomplicated; E78.00 Pure hypercholesterolemia, unspecified; J45.909 Unspecified asthma, uncomplicated; G40.909 Epilepsy, unspecified, not intractable, without status epilepticus; E11.9 Type 2 diabetes mellitus without complications; M19.90 Unspecified osteoarthritis, unspecified site; Y90.0 Blood alcohol level of less than 20 mg/100 ml; R00.0 Tachycardia, unspecified; N40.0 Benign prostatic hyperplasia without lower urinary tract symptoms; F41.9 Anxiety disorder, unspecified; G89.29 Other chronic pain; M54.5 Low back pain; E78.5 Hyperlipidemia, unspecified; R19.5 Other fecal abnormalities; G40.509 Epileptic seizures related to external causes, not intractable, without status epilepticus

== ENCOUNTER 2017-05-13 12:43 | Inpatient (IN) | payer MEDICAID, OTHER ==
[2017-05-13 12:51] VITALS: BMI 20.7
--- NOTE | 2017-05-13 13:59 | C.PDOC ---
History Of Present Illness <Lucy Newsome - Last Filed: 05/13/17 14:53> <Nikki Santiago - Last Filed: 05/13/17 15:57> 62 year old male presents to the ED for evaluation after he "passed out" while walking on the street earlier today. Patient states he had one beer today and went to run some errands. Patient then notes that he woke up and found himself on the ground. He is unsure whether he fell or had a syncopal episode. Patient notes he had similar symptoms around 2 months ago, and was admitted for around 5 days. Patient currently reports pain behind his ears and to the back of his neck. Patient also reports chronic abdominal pain caused by a hernia. Patient denies fever, chills, chest pain, back pain, nausea, vomiting, blood in stool, or extremity numbness/weakness. Patient also reports aortic heart valve problems. (Nikki Santiago) <Lucy Newsome - Last Filed: 05/13/17 14:53> History Per: Patient History/Exam Limitations: no limitations Onset/Duration Of Symptoms: Hrs Current Symptoms Are (Timing): Still Present Activity At Onset Of Symptoms: Standing Associated Symptoms Preceding Syncopal Episode: No Predromal Symptoms (Sudden Onset) Additional History Per: Patient <Nikki Santiago - Last Filed: 05/13/17 15:57> Time Seen by Provider: 05/13/17 13:03 Chief Complaint (Nursing): Dizziness/Lightheaded Past Medical History Reviewed: Historical Data, Nursing Documentation, Vital Signs - Medical History PMH: Arthritis, Asthma, Back Problems, Benign Prostatic Hyperplasia, Bronchitis , Cardiac Aneurysm, CHF, COPD, Diabetes (Borderline), Emphysema, Gastritis, HTN , Hypercholesterolemia, Seizures Surgical History: Hernia Repair Family History: States: Unknown Family Hx - Social History Hx Tobacco Use: Yes Hx Alcohol Use: Yes (BEER) Hx Substance Use: No - Immunization History Hx Tetanus Toxoid Vaccination: Yes Hx Influenza Vaccination: Yes Hx Pneumococcal Vaccination: Yes <Nikki Santiago - Last Filed: 05/13/17 15:57> Vital Signs: Last Vital Signs Temp 97.8 F 05/13/17 12:49 Pulse 102 H 05/13/17 14:06 Resp 16 05/13/17 14:06 BP 115/75 05/13/17 14:06 Pulse Ox 98 05/13/17 15:41 - [facility] Procedures ALCOHOL DETOXIFICATION (11/15/14) DETOXIFICATION SERVICES FOR SUBSTANCE ABUSE TREATMENT (03/08/17) INDIV PSYCHOTHERAPY FOR SUBSTANCE ABUSE TREATMENT, SUPPORT (03/08/17) INDIV PSYCHOTHERAPY FOR SUBSTANCE ABUSE, COGNITIV BEHAVIORAL (03/08/17) INDIV PSYCHOTHERAPY FOR SUBSTANCE ABUSE, PSYCHOEDUCATION (03/08/17) INSERT INDWELLING CATH (06/08/13) TETANUS TOXOID ADMINIST (05/28/14) Review Of Systems Constitutional: Negative for: Fever, Chills Cardiovascular: Negative for: Chest Pain Gastrointestinal: Negative for: Nausea, Vomiting, Hematochezia Musculoskeletal: Negative for: Back Pain <Nikki Santiago - Last Filed: 05/13/17 15:57> Physical Exam - Physical Exam Appears: Non-toxic, No Acute Distress Skin: Normal Color, Warm, Dry Head: Atraumatic, Normacephalic, No Tenderness, No Swelling, No Laceration Eye(s): bilateral: Normal Inspection Ear(s): Bilateral: Normal Oral Mucosa: Moist Neck: Midline Cervical Tenderness, Supple Chest: Symmetrical, No Deformity, No Tenderness Cardiovascular: Rhythm Regular, No Murmur, Other (tachycardic ) Respiratory: Normal Breath Sounds, No Rales, No Rhonchi, No Wheezing Gastrointestinal/Abdominal: Soft, No Tenderness, No Guarding, No Rebound Male Genital: Other (right groin tenderness. chronic hernia to right mons pubis region ) Extremity: Normal ROM, Capillary Refill (less than 2 seconds ) Neurological/Psych: Oriented x3, Normal Speech, Normal Cognition <Nikki Santiago - Last Filed: 05/13/17 15:57> ED Course And Treatment ECG: Interpreted By Me, Viewed By Me ECG Rhythm: Sinus Rhythm (97), Nonspecific Changes <Lucy Newsome - Last Filed: 05/13/17 14:53> - Laboratory Results Result Diagrams: 05/13/17 15:05 05/13/17 15:05 O2 Sat by Pulse Oximetry: 98 (on RA ) Pulse Ox Interpretation: Normal - CT Scan/US CT Head Other Rad Studies (CT/US): Interpreted By Me, Read By Radiologist, Radiology Report Reviewed CT/US Interpretation: PROCEDURE: CT HEAD WITHOUT CONTRAST. HISTORY: syncope. COMPARISON: 01/27/2017. TECHNIQUE: Axial computed tomography images were obtained through the head/brain without intravenous contrast. Radiation dose: Total exam DLP = 1045 mGy-cm. This CT exam was performed using one or more of the following dose reduction techniques: Automated exposure control, adjustment of the mA and/or kV according to patient size, and/or use of iterative reconstruction technique. FINDINGS: HEMORRHAGE: No intracranial hemorrhage. BRAIN: No mass effect or edema. Scattered focal lucencies in the subcortical and periventricular white matter suggestive for chronic microvascular ischemic change. Bilateral basal ganglia calcifications. Small left basal ganglia lacunar infarct. VENTRICLES: Prominent. CALVARIUM: Unremarkable. PARANASAL SINUSES: Mucosal thickening and opacification of the ethmoid air cells. MASTOID AIR CELLS: Unremarkable as visualized. No inflammatory changes. OTHER FINDINGS: None. IMPRESSION: Chronic microvascular ischemic change. Small left basal ganglia lacunar infarct. Sinus mucosal disease. If focal neurologic deficit persists, consider MRI. CT Cervical Spine Other Rad Studies (CT/US): Interpreted By Me, Read By Radiologist, Radiology Report Reviewed CT/US Interpretation: CT cervical spine without IV contrast. Indication: Neck pain status post syncopal episode. Comparison: Cervical spine performed . Technique: Axial computed tomography images were obtained of the cervical spine without the use of intravenous contrast. Coronal and sagittal reformatted images were created and reviewed. This CT exam was performed using 1 or more of the falling dose reduction techniques: Automated exposure control, adjustment of the MAA and/or kV according to patient size, and/or use of iterative reconstruction technique. Radiation dose: Total exam DLP = 483.91 MGy-cm. Findings: Straightening of the normal cervical lordosis may be related to muscle spasm or positioning. Multilevel degenerative changes including intervertebral disc space narrowing and osteophyte formation. There is no evidence of acute fracture. 3 mm anterolisthesis of C4 on C5. The prevertebral soft tissues and spinolaminar lines appear intact. The lateral masses are preserved. The dens tip is intact. There is proper alignment of the lateral masses of C1 with the C2 vertebral body. Dense carotid artery calcifications. Mucosal thickening of the included frontal sinuses, ethmoid air cells, and left maxillary sinus. Included portions of the thyroid gland appear unremarkable. Included portions of lung apices demonstrate emphysematous changes. Impression: No evidence of acute fracture. Straightening of the normal cervical lordosis may be related to muscle spasm or positioning. 3 mm anterolisthesis of C4 on C5. Multilevel degenerative changes of the spine including intervertebral disc space narrowing and osteophyte formation. Mucosal thickening of the included frontal sinuses, ethmoid air cells, and left maxillary sinus. Emphysematous changes at the lung apices. <Nikki Santiago - Last Filed: 05/13/17 15:57> Medical Decision Making <Lucy Newsome - Last Filed: 05/13/17 14:53> <Nikki Santiago - Last Filed: 05/13/17 15:57> Medical Decision Making: Progress: CT Head, CT Cervical Spine, CXR ordered and reviewed. Bloodwork and urinalysis ordered and reviewed. 340 pm pt reports feeling dizzy when standing. orthostatics ordered. discussed with Dr Arias, will place on obs/tele. 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 - Scribe Statement The provider has reviewed the documentation as recorded by the Scribe (Isabell Caban) <Nikki Santiago - Last Filed: 05/13/17 15:57> - Scribe Statement All medical record entries made by the Scribe were at my direction and personally dictated by me. I have reviewed the chart and agree that the record accurately reflects my personal performance of the history, physical exam, medical decision making, and the department course for this patient. I have also personally directed, reviewed, and agree with the discharge instructions and disposition. (Nikki Santiago)
[2017-05-13 15:09] LABS: BASO # 0.1 K/uL (0.0-0.2); BASO % 0.9 % (0.0-2.0); EOS # 0.1 K/uL (0.0-0.7); EOS % 1.7 % (0.0-4.0); HEMATOCRIT 40.3 % (35.0-51.0); LYMPH # 2.7 K/uL (1.0-4.3); MEAN CELL VOLUME 92.9 fL (80.0-94.0); MEAN CORPUSCULAR HEMOGLOBIN 32.6 pg (27.0-31.0); MEAN CORPUSCULAR HGB CONC 35.1 g/dL (33.0-37.0); MEAN PLATELET VOLUME 7.4 fL (7.2-11.7); MONO # 0.4 K/uL (0.0-0.8); MONO % 6.5 % (0.0-10.0); RED CELL DISTRIBUTION WIDTH 14.2 % (11.5-14.5); WHITE BLOOD COUNT 5.8 K/uL (4.8-10.8)
--- NOTE | 2017-05-13 15:09 | CT ---
PROCEDURE: CT HEAD WITHOUT CONTRAST. HISTORY: syncope COMPARISON: 01/27/2017 TECHNIQUE: Axial computed tomography images were obtained through the head/brain without intravenous contrast. Radiation dose: Total exam DLP = 1045 mGy-cm. This CT exam was performed using one or more of the following dose reduction techniques: Automated exposure control, adjustment of the mA and/or kV according to patient size, and/or use of iterative reconstruction technique. FINDINGS: HEMORRHAGE: No intracranial hemorrhage. BRAIN: No mass effect or edema. Scattered focal lucencies in the subcortical and periventricular white matter suggestive for chronic microvascular ischemic change. Bilateral basal ganglia calcifications. Small left basal ganglia lacunar infarct. VENTRICLES: Prominent. CALVARIUM: Unremarkable. PARANASAL SINUSES: Mucosal thickening and opacification of the ethmoid air cells. MASTOID AIR CELLS: Unremarkable as visualized. No inflammatory changes. OTHER FINDINGS: None. IMPRESSION: Chronic microvascular ischemic change. Small left basal ganglia lacunar infarct. Sinus mucosal disease. If focal neurologic deficit persists, consider MRI.
[2017-05-13 15:21] LABS: CHLORIDE 99 mmol/L (98-107); SODIUM 136 mmol/L (132-148)
[2017-05-13 15:23] LABS: AST/SGOT 61 U/L (17-59); BILIRUBIN,TOTAL 1.1 mg/dL (0.2-1.3); CARBON DIOXIDE 17 mmol/L (22-30); GFR AFRICAN-AMERICAN > 60
[2017-05-13 15:23] LABS: RBC URINE 2 /hpf (0-3); URINE BILIRUBIN NEGATIVE (NEGATIVE); URINE BLOOD 1+ (NEGATIVE); URINE COLOR Straw (YELLOW); URINE GLUCOSE (UA) NORMAL (Normal); URINE KETONE TRACE mg/dL (NEGATIVE); URINE LEUKOCYTE ESTERASE NEG Leu/uL (Negative); URINE PROTEIN NEGATIVE (NEGATIVE); URINE UROBILINOGEN NORMAL mg/dL (0.2-1.0); WBC URINE 2 /hpf (0-5)
[2017-05-13 15:24] LABS: ALB/GLOB RATIO 1.3 (1.0-2.1); ALKALINE PHOSPHATASE 55 U/L (38-126); ALT/SGPT 24 U/L (21-72); BLOOD UREA NITROGEN 6 mg/dL (9-20); CALCIUM 8.9 mg/dl (8.6-10.4); GLUCOSE,RANDOM 80 mg/dL (75-110); POTASSIUM 5.2 mmol/L (3.6-5.2); TOTAL PROTEIN 8.8 g/dL (6.3-8.3)
--- NOTE | 2017-05-13 15:28 | CT ---
CT cervical spine without IV contrast Indication: Neck pain status post syncopal episode Comparison: Cervical spine performed 10/22/15. Technique: Axial computed tomography images were obtained of the cervical spine without the use of intravenous contrast. Coronal and sagittal reformatted images were created and reviewed. This CT exam was performed using 1 or more of the falling dose reduction techniques: Automated exposure control, adjustment of the MAA and/or kV according to patient size, and/or use of iterative reconstruction technique. Radiation dose: Total exam DLP = 483.91 MGy-cm. Findings: Straightening of the normal cervical lordosis may be related to muscle spasm or positioning. Multilevel degenerative changes including intervertebral disc space narrowing and osteophyte formation. There is no evidence of acute fracture. 3 mm anterolisthesis of C4 on C5. The prevertebral soft tissues and spinolaminar lines appear intact. The lateral masses are preserved. The dens tip is intact. There is proper alignment of the lateral masses of C1 with the C2 vertebral body. Dense carotid artery calcifications. Mucosal thickening of the included frontal sinuses, ethmoid air cells, and left maxillary sinus. Included portions of the thyroid gland appear unremarkable. Included portions of lung apices demonstrate emphysematous changes. Impression: No evidence of acute fracture. Straightening of the normal cervical lordosis may be related to muscle spasm or positioning. 3 mm anterolisthesis of C4 on C5. Multilevel degenerative changes of the spine including intervertebral disc space narrowing and osteophyte formation. Mucosal thickening of the included frontal sinuses, ethmoid air cells, and left maxillary sinus. Emphysematous changes at the lung apices.
[2017-05-13] MEDS ORDERED: Sodium Chloride 0.9% 1,000 ML IV ONE (15:41)
[2017-05-13] MEDS ORDERED: Multivitamin (MVI) 10 ML, Thiamine 100 MG, Folic Acid 1 MG in Sodium Chloride 0.9% 1,00... IV ONE (15:48)
[2017-05-13 16:06] LABS: ALCOHOL SERUM 298 mg/dl (0-10)
--- NOTE | 2017-05-13 16:15 | C.PDOC ---
History Of Present Illness 62 year old male presents to the ED for evaluation after he "passed out" while walking on the street earlier today. Patient states he had one beer today and went to run some errands. Patient then notes that he woke up and found himself on the ground and that it occurred 2 more times today. He is unsure whether he fell or had a syncopal episode. Patient notes he had similar symptoms around 2 months ago, and was admitted for around 5 days. Patient currently reports pain behind his both ears and to the back of his neck. Patient also reports chronic, right-sided groin pain caused by a hernia. Patient denies fever, chills, chest pain, back pain, nausea, vomiting, blood in stool, or extremity numbness/ weakness. Patient also reports aortic heart valve problems but cannot provide further details. Time Seen by Provider: 05/13/17 13:03 Chief Complaint (Nursing): Dizziness/Lightheaded History Per: Patient History/Exam Limitations: no limitations Onset/Duration Of Symptoms: Hrs Current Symptoms Are (Timing): Still Present Activity At Onset Of Symptoms: Standing Associated Symptoms Preceding Syncopal Episode: No Predromal Symptoms (Sudden Onset) Seizure Or Post-ictal Symptoms: None Additional History Per: Patient Past Medical History Reviewed: Historical Data, Nursing Documentation, Vital Signs Vital Signs: Last Vital Signs Temp 97.5 F L 05/13/17 16:43 Pulse 109 H 05/13/17 16:43 Resp 18 05/13/17 16:43 BP 132/87 05/13/17 16:43 Pulse Ox 98 05/13/17 18:45 - Medical History PMH: Arthritis, Asthma, Back Problems, Benign Prostatic Hyperplasia, Bronchitis , Cardiac Aneurysm, CHF, COPD, Diabetes (Borderline), Emphysema, Gastritis, HTN , Hypercholesterolemia, Seizures Surgical History: Hernia Repair - [facility] Procedures ALCOHOL DETOXIFICATION (11/15/14) DETOXIFICATION SERVICES FOR SUBSTANCE ABUSE TREATMENT (03/08/17) INDIV PSYCHOTHERAPY FOR SUBSTANCE ABUSE TREATMENT, SUPPORT (03/08/17) INDIV PSYCHOTHERAPY FOR SUBSTANCE ABUSE, COGNITIV BEHAVIORAL (03/08/17) INDIV PSYCHOTHERAPY FOR SUBSTANCE ABUSE, PSYCHOEDUCATION (03/08/17) INSERT INDWELLING CATH (06/08/13) TETANUS TOXOID ADMINIST (05/28/14) Family History: States: Unknown Family Hx - Social History Hx Tobacco Use: Yes Hx Alcohol Use: Yes (BEER) Hx Substance Use: No - Immunization History Hx Tetanus Toxoid Vaccination: Yes Hx Influenza Vaccination: Yes Hx Pneumococcal Vaccination: Yes Review Of Systems Constitutional: Negative for: Fever, Chills Cardiovascular: Negative for: Chest Pain Respiratory: Negative for: Shortness of Breath Gastrointestinal: Negative for: Nausea, Vomiting, Hematochezia Musculoskeletal: Positive for: Neck Pain. Negative for: Back Pain Neurological: Negative for: Weakness, Numbness Physical Exam - Physical Exam Appears: Non-toxic, No Acute Distress Skin: Normal Color, Warm, Dry Head: Atraumatic, Normacephalic, No Tenderness, No Swelling, No Laceration Eye(s): bilateral: Normal Inspection Ear(s): Bilateral: Normal Oral Mucosa: Dry Neck: Midline Cervical Tenderness Chest: Symmetrical, No Deformity, No Tenderness Cardiovascular: Rhythm Regular, No Murmur, Other (tachycardic ) Respiratory: Normal Breath Sounds, No Rales, No Rhonchi, No Wheezing Gastrointestinal/Abdominal: Soft, Tenderness (right mons pubis), No Guarding, No Rebound Male Genital: Other (tenderness to right groin/mons pubis region on palpation ( chronic)) Extremity: Normal ROM, No Tenderness, No Pedal Edema, Capillary Refill (less than 2 seconds ), No Deformity, No Swelling Neurological/Psych: Oriented x3, Normal Speech, Normal Cognition, Normal Cranial Nerves, Normal Motor, Normal Sensation ED Course And Treatment - Laboratory Results Result Diagrams: 05/13/17 15:05 05/13/17 15:05 ECG: Interpreted By Me, Viewed By Me ECG Rhythm: Sinus Rhythm Interpretation Of ECG: Normal Sinus Rhythm at rate 97bpm. Minimal voltage criteria for LVH, may be normal variant. Septal infarct. Rate From EC O2 Sat by Pulse Oximetry: 98 (on RA ) - Other Rad CXR X-Ray: Interpreted by Me, Viewed By Me, Read By Radiologist Interpretation: PROCEDURE: CHEST RADIOGRAPH, 1 VIEW. HISTORY: abd pain. COMPARISON: 03/08/2017. FINDINGS: LUNGS: Clear. PLEURA: No pneumothorax or pleural fluid seen. CARDIOVASCULAR: Normal. OSSEOUS STRUCTURES: Prior right a calcific tendinopathy not visually included on this exam old inferior posterior right rib fractures and probable posterior old left healed fractures suggested - CT Scan/US CT Head Other Rad Studies (CT/US): Interpreted By Me, Read By Radiologist, Radiology Report Reviewed CT/US Interpretation: PROCEDURE: CT HEAD WITHOUT CONTRAST. HISTORY: syncope. COMPARISON: 01/27/2017. TECHNIQUE: Axial computed tomography images were obtained through the head/brain without intravenous contrast. Radiation dose: Total exam DLP = 1045 mGy-cm. This CT exam was performed using one or more of the following dose reduction techniques: Automated exposure control, adjustment of the mA and/or kV according to patient size, and/or use of iterative reconstruction technique. FINDINGS: HEMORRHAGE: No intracranial hemorrhage. BRAIN: No mass effect or edema. Scattered focal lucencies in the subcortical and periventricular white matter suggestive for chronic microvascular ischemic change. Bilateral basal ganglia calcifications. Small left basal ganglia lacunar infarct. VENTRICLES: Prominent. CALVARIUM: Unremarkable. PARANASAL SINUSES: Mucosal thickening and opacification of the ethmoid air cells. MASTOID AIR CELLS: Unremarkable as visualized. No inflammatory changes. OTHER FINDINGS: None. IMPRESSION: Chronic microvascular ischemic change. Small left basal ganglia lacunar infarct. Sinus mucosal disease. If focal neurologic deficit persists, consider MRI. CT Cervical Spine Other Rad Studies (CT/US): Interpreted By Me, Read By Radiologist, Radiology Report Reviewed CT/US Interpretation: CT cervical spine without IV contrast. Indication: Neck pain status post syncopal episode. Comparison: Cervical spine performed . Technique: Axial computed tomography images were obtained of the cervical spine without the use of intravenous contrast. Coronal and sagittal reformatted images were created and reviewed. This CT exam was performed using 1 or more of the falling dose reduction techniques: Automated exposure control, adjustment of the MAA and/or kV according to patient size, and/or use of iterative reconstruction technique. Radiation dose: Total exam DLP = 483.91 MGy-cm. Findings: Straightening of the normal cervical lordosis may be related to muscle spasm or positioning. Multilevel degenerative changes including intervertebral disc space narrowing and osteophyte formation. There is no evidence of acute fracture. 3 mm anterolisthesis of C4 on C5. The prevertebral soft tissues and spinolaminar lines appear intact. The lateral masses are preserved. The dens tip is intact. There is proper alignment of the lateral masses of C1 with the C2 vertebral body. Dense carotid artery calcifications. Mucosal thickening of the included frontal sinuses, ethmoid air cells, and left maxillary sinus. Included portions of the thyroid gland appear unremarkable. Included portions of lung apices demonstrate emphysematous changes. Impression: No evidence of acute fracture. Straightening of the normal cervical lordosis may be related to muscle spasm or positioning. 3 mm anterolisthesis of C4 on C5. Multilevel degenerative changes of the spine including intervertebral disc space narrowing and osteophyte formation. Mucosal thickening of the included frontal sinuses, ethmoid air cells, and left maxillary sinus. Emphysematous changes at the lung apices. Medical Decision Making Medical Decision Making: Progress: CT Cervical Spine, CT Head, CXR, EKG, bloodwork, and urinalysis ordered and reviewed. Librium PO and IV Fluids administered. 340 pm pt reports feeling dizzy when standing. orthostatics ordered. discussed with Dr Arias, will place on obs/tele. 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 - Scribe Statement The provider has reviewed the documentation as recorded by the Scribe (Isabell Caban) All medical record entries made by the Scribe were at my direction and personally dictated by me. I have reviewed the chart and agree that the record accurately reflects my personal performance of the history, physical exam, medical decision making, and the department course for this patient. I have also personally directed, reviewed, and agree with the discharge instructions and disposition.
[2017-05-13] MEDS ORDERED: Folic Acid 1 MG, Thiamine 100 MG, Multivitamin (MVI) 10 ML in Dextrose 5% In Water 1,00... IV SCH (16:30)
--- NOTE | 2017-05-13 16:34 | RAD ---
PROCEDURE: CHEST RADIOGRAPH, 1 VIEW HISTORY: abd pain COMPARISON: 03/08/2017 FINDINGS: LUNGS: Clear. PLEURA: No pneumothorax or pleural fluid seen. CARDIOVASCULAR: Normal. OSSEOUS STRUCTURES: Prior right a calcific tendinopathy not visually included on this exam old inferior posterior right rib fractures and probable posterior old left healed fractures suggested VISUALIZED UPPER ABDOMEN: Normal. OTHER FINDINGS: None. IMPRESSION: No interval cardiopulmonary pathology noted
--- NOTE | 2017-05-13 23:37 | CP.PCM.HP ---
History of Present Illness - History of Present Illness History of Present Illness: Chief Complaint : Dizziness/Lightheaded? syncope HPI: Pt is a 62 year old white male h/o HTN, followed up in [place] [facility] in [place], he had h/o heart disease with 3 surgeries in past, he smokes and drinks heavily, in his usial status f health indepepndent in [place] presents to the ED for evaluation after he "passed out" while walking on the street earlier today. Patient states he had one beer today and went to run some errands. Patient then notes that he woke up and found himself on the ground and that it occurred 2 more times today. He is unsure whether he fell or had a syncopal episode. Patient notes he had similar symptoms around 2 months ago, and was admitted for around 5 days. Patient currently reports pain behind his both ears and to the back of his neck. Patient also reports chronic, right-sided groin pain caused by a hernia. Patient denies fever, chills, chest pain, back pain, nausea, vomiting, blood in stool, or extremity numbness/weakness. Patient also reports aortic heart valve problems but cannot provide further details.Pt has been shaking and to avoid shaking he drinks more according to pt he has not been eating well, he is feeling more anxious and depressed. Review of Systems - Review of Systems Systems not reviewed;Unavailable: Intoxicated - Constitutional Constitutional: Fatigue, Lethargy, Malaise - EENT Eyes: absent: As Per HPI, Blind Spots, Blurred Vision, Change in Vision, Decreased Night Vision, Diplopia, Discharge, Dry Eye, Exophthalmos, Floaters, Irritation, Itchy Eyes, Loss of Peripheral Vision, Pain, Photophobia, Requires Corrective Lenses, Sees Flashes, Spots in Vision, Tunnel Vision, Other Visual Disturbances, Loss of Vision, Other Nose/Mouth/Throat: absent: As Per HPI, Epistaxis, Nasal Congestion, Nasal Discharge, Nasal Obstruction, Nasal Trauma, Nose Pain, Post Nasal Drip, Sinus Pain, Sinus Pressure, Bleeding Gums, Change in Voice, Dental Pain, Dry Mouth, Dysphagia, Halitosis, Hoarsness, Lip Swelling, Mouth Lesions, Mouth Pain, Odynophagia, Sore Throat, Throat Swelling, Tongue Swelling, Facial Pain, Neck Pain, Neck Mass, Other - Cardiovascular Cardiovascular: Palpitations. absent: As Per HPI, Acrocyanosis, Chest Pain, Chest Pain at Rest, Chest Pain with Activity, Claudication, Diaphoresis, Dyspnea , Dyspnea on Exertion, Edema, Irregular Heart Rhythm, Pain Radiating to Arm/Neck /Jaw, Leg Edema, Leg Ulcers, Lightheadedness, Orthopnea, Paroxysmal Nocturnal Dyspnea, Pedal Edema, Radiating Pain, Rapid Heart Rate, Slow Heart Rate, Syncope , Other - Respiratory Respiratory: absent: As Per HPI, Cough, Dyspnea, Hemoptysis, Dyspnea on Exertion , Wheezing, Snoring, Stridor, Pain on Inspiration, Chest Congestion, Excessive Mucous Production, Change in Mucous Color, Pain with Coughing, Other - Musculoskeletal Musculoskeletal: Muscle Weakness - Integumentary Integumentary: Swelling - Neurological Neurological: Behavioral Changes, Syncope, Weakness - Psychiatric Psychiatric: Anxiety, Depression - Endocrine Endocrine: absent: As Per HPI, Change in Body Appearance, Change in Libido, Cold Intolorance, Deepening of Voice, Excessive Sweating, Fatigue, Flushing, Heat Intolorance, Increase in Ring/Shoe/Hat Size, Palpitations, Polydipsia, Polyphagia, Polyuria, Other Past Patient History - Infectious Disease Hx of Infectious Diseases: None - Past Medical History & Family History Past Medical History?: Yes - Past Social History Smoking Status: Heavy Smoker > 10 Cigarettes Daily - CARDIAC Hx Congestive Heart Failure: Yes Hx Hypercholesterolemia: Yes Hx Hypertension: Yes Other/Comment: 3 NH episode - PULMONARY Hx Asthma: Yes Hx Bronchitis: Yes Hx Chronic Obstructive Pulmonary Disease (COPD): Yes Hx Emphysema: Yes - NEUROLOGICAL Hx Seizures: Yes - HEENT Hx HEENT Problems: No - ENDOCRINE/METABOLIC Hx Endocrine Disorders: Yes Hx Diabetes Mellitus Type 2: Yes - HEMATOLOGICAL/ONCOLOGICAL Hx Blood Disorders: No - INTEGUMENTARY Hx Dermatological Problems: No - MUSCULOSKELETAL/RHEUMATOLOGICAL Hx Arthritis: Yes - GASTROINTESTINAL Hx Gastritis: Yes - PSYCHIATRIC Hx Substance Use: No - SURGICAL HISTORY Hx Surgeries: Yes Hx Herniorrhaphy: Yes - ANESTHESIA Hx Anesthesia: No Hx Anesthesia Reactions: No Hx Malignant Hyperthermia: No Meds Allergies/Adverse Reactions: Allergies Allergy/AdvReac Type Severity Reaction Status Date / Time tomatoes AdvReac RASH Uncoded 05/13/17 12:50 Physical Exam - Constitutional Appears: Unkempt, Agitated Additional comments: pt is weak, malnousrished, unkept - Head Exam Head Exam: ATRAUMATIC, NORMAL INSPECTION, NORMOCEPHALIC - Eye Exam Eye Exam: EOMI, Normal appearance, PERRL Pupil Exam: NORMAL ACCOMODATION, PERRL - ENT Exam ENT Exam: Mucous Membranes Moist, Normal Exam - Respiratory Exam Respiratory Exam: Clear to Auscultation Bilateral, NORMAL BREATHING PATTERN - Cardiovascular Exam Cardiovascular Exam: REGULAR RHYTHM, +S1, +S2, +S4 Additional comments: S3 positive - GI/Abdominal Exam GI & Abdominal Exam: Normal Bowel Sounds, Soft. absent: Tenderness - Rectal Exam Rectal Exam: NORMAL INSPECTION - Extremities Exam Additional comments: chronic swelling of both PIP and DIP joints but no rash - Neurological Exam Additional comments: coarse generalized tremor, more pronounced on left side john is 5/5 DTRs 2/4 - Psychiatric Exam Psychiatric exam: Anxious - Skin Additional comments: flushed skin , poor turgor Results - Vital Signs Recent Vital Signs: Last Vital Signs Temp 97.9 F 05/13/17 22:22 Pulse 90 05/13/17 22:22 Resp 20 05/13/17 22:22 BP 139/86 05/13/17 22:22 Pulse Ox 97 05/13/17 22:22 - Labs Result Diagrams: 05/13/17 15:05 05/13/17 15:05 Labs: Laboratory Results - last 24 hr 05/13/17 05/13/17 05/13/17 15:05 15:05 15:13 WBC 5.8 RBC 4.34 L Hgb 14.2 Hct 40.3 MCV 92.9 MCH 32.6 H MCHC 35.1 RDW 14.2 Plt Count 180 MPV 7.4 Neut % (Auto) 43.9 L Lymph % (Auto) 47.0 H [place] % (Auto) 6.5 Eos % (Auto) 1.7 Baso % (Auto) 0.9 Neut # 2.6 Lymph # 2.7 [place] # 0.4 Eos # 0.1 Baso # 0.1 PT INR APTT Sodium 136 Potassium 5.2 Chloride 99 Carbon Dioxide 17 L Anion Gap 25 H BUN 6 L Creatinine 0.5 L Est GFR ( Amer) > 60 Est GFR (Non-Af Amer) > 60 Random Glucose 80 Calcium 8.9 Total Bilirubin 1.1 AST 61 H ALT 24 Alkaline Phosphatase 55 Total Creatine Kinase CK-MB (Mass) Troponin I < 0.0120 Troponin I, Quant Total Protein 8.8 H Albumin 5.1 H D Globulin 3.8 Albumin/Globulin Ratio 1.3 Lipase 231 Urine Color Straw Urine Clarity Clear Urine pH 5.0 Ur Specific [place] 1.004 Urine Protein Negative Urine Glucose (UA) Normal Urine Ketones Trace Urine Blood 1+ H Urine Nitrate Negative Urine Bilirubin Negative Urine Urobilinogen Normal Ur Leukocyte Esterase Neg Urine WBC (Auto) 2 Urine RBC (Auto) 2 Ur Squamous Epith Cells < 1 Urine Opiates Screen Urine Methadone Screen Ur Barbiturates Screen Ur Phencyclidine Scrn Ur Amphetamines Screen U Benzodiazepines Scrn U Oth Cocaine Metabols U Cannabinoids Screen Alcohol, Quantitative 298 H 05/13/17 05/13/17 05/13/17 15:13 15:42 21:44 WBC RBC Hgb Hct MCV MCH MCHC RDW Plt Count MPV Neut % (Auto) Lymph % (Auto) [place] % (Auto) Eos % (Auto) Baso % (Auto) Neut # Lymph # [place] # Eos # Baso # PT 10.8 INR 1.0 APTT 29 Sodium Potassium Chloride Carbon Dioxide Anion Gap BUN Creatinine Est GFR ( Amer) Est GFR (Non-Af Amer) Random Glucose Calcium Total Bilirubin AST ALT Alkaline Phosphatase Total Creatine Kinase 126 CK-MB (Mass) 1.03 Troponin I Troponin I, Quant < 0.0120 Total Protein Albumin Globulin Albumin/Globulin Ratio Lipase Urine Color Urine Clarity Urine pH Ur Specific [place] Urine Protein Urine Glucose (UA) Urine Ketones Urine Blood Urine Nitrate Urine Bilirubin Urine Urobilinogen Ur Leukocyte Esterase Urine WBC (Auto) Urine RBC (Auto) Ur Squamous Epith Cells Urine Opiates Screen Negative Urine Methadone Screen Negative Ur Barbiturates Screen Negative Ur Phencyclidine Scrn Negative Ur Amphetamines Screen Negative U Benzodiazepines Scrn Negative U Oth Cocaine Metabols Negative U Cannabinoids Screen Negative Alcohol, Quantitative Assessment & Plan (1) Syncope Assessment and Plan: most likely due to dehydration'poor oral intake Status: Acute (2) Labile essential hypertension Assessment and Plan: Pt B.P is on Lower side now according to him his B.P fluctuates alot Status: Acute (3) Alcohol dependence Assessment and Plan: IV fluids thamine monitor pt Status: Acute
--- NOTE | 2017-05-14 07:34 | CP.PCM.CON ---
History of Present Illness - History of Present Illness History of Present Illness: CONSULT DICTATED ETOH RELATED BLOCK OUT REHAB CARDIOLOGY CONSULT Past Patient History - Infectious Disease Hx of Infectious Diseases: None - Past Medical History & Family History Past Medical History?: Yes - Past Social History Smoking Status: Heavy Smoker > 10 Cigarettes Daily - CARDIAC Hx Congestive Heart Failure: Yes Hx Hypercholesterolemia: Yes Hx Hypertension: Yes Other/Comment: 3 [place] episode - PULMONARY Hx Asthma: Yes Hx Bronchitis: Yes Hx Chronic Obstructive Pulmonary Disease (COPD): Yes Hx Emphysema: Yes - NEUROLOGICAL Hx Seizures: Yes - HEENT Hx HEENT Problems: No - ENDOCRINE/METABOLIC Hx Endocrine Disorders: Yes Hx Diabetes Mellitus Type 2: Yes - HEMATOLOGICAL/ONCOLOGICAL Hx Blood Disorders: No - INTEGUMENTARY Hx Dermatological Problems: No - MUSCULOSKELETAL/RHEUMATOLOGICAL Hx Arthritis: Yes - GASTROINTESTINAL Hx Gastritis: Yes - PSYCHIATRIC Hx Substance Use: No - SURGICAL HISTORY Hx Surgeries: Yes Hx Herniorrhaphy: Yes - ANESTHESIA Hx Anesthesia: No Hx Anesthesia Reactions: No Hx Malignant Hyperthermia: No Meds Allergies/Adverse Reactions: Allergies Allergy/AdvReac Type Severity Reaction Status Date / Time tomatoes AdvReac RASH Uncoded 05/13/17 12:50 - Medications Medications: Current Medications Aspirin (Aspirin Chewable) 81 mg PO DAILY [facility] Chlordiazepoxide (Librium) 25 mg PO Q4 PRN PRN Reason: alcohol withdrawal Last Admin: 05/13/17 22:40 Dose: 25 mg Enoxaparin Sodium (Lovenox) 60 mg SC Q12 [facility] Folic Acid (Folic Acid) 1 mg PO DAILY [facility] Multivitamins (Hexavitamin) 1 tab PO DAILY [facility] Rosuvastatin Calcium (Crestor) 40 mg PO HS [facility] Sucralfate (Carafate Tab) 1 gm PO BID [facility] Last Admin: 05/13/17 19:21 Dose: 1 gm Tamsulosin HCl (Flomax) 0.4 mg PO DAILY [facility] Thiamine HCl (Vitamin B1 Tab) 100 mg PO DAILY [facility] Tiotropium [place] (Spiriva) 18 mcg INH RQ24 [facility] Results - Vital Signs Recent Vital Signs: Last Vital Signs Temp 97.8 F 05/13/17 23:20 Pulse 93 H 05/14/17 01:00 Resp 20 05/13/17 23:20 BP 128/83 05/13/17 23:20 Pulse Ox 95 05/13/17 23:20 - Labs Result Diagrams: 05/13/17 15:05 05/13/17 15:05 Labs: Laboratory Results - last 24 hr 05/13/17 05/13/17 05/13/17 15:05 15:05 15:13 WBC 5.8 RBC 4.34 L Hgb 14.2 Hct 40.3 MCV 92.9 MCH 32.6 H MCHC 35.1 RDW 14.2 Plt Count 180 MPV 7.4 Neut % (Auto) 43.9 L Lymph % (Auto) 47.0 H [place] % (Auto) 6.5 Eos % (Auto) 1.7 Baso % (Auto) 0.9 Neut # 2.6 Lymph # 2.7 [place] # 0.4 Eos # 0.1 Baso # 0.1 PT INR APTT Sodium 136 Potassium 5.2 Chloride 99 Carbon Dioxide 17 L Anion Gap 25 H BUN 6 L Creatinine 0.5 L Est GFR ( Amer) > 60 Est GFR (Non-Af Amer) > 60 Random Glucose 80 Calcium 8.9 Total Bilirubin 1.1 AST 61 H ALT 24 Alkaline Phosphatase 55 Total Creatine Kinase CK-MB (Mass) Troponin I < 0.0120 Troponin I, Quant Total Protein 8.8 H Albumin 5.1 H D Globulin 3.8 Albumin/Globulin Ratio 1.3 Lipase 231 Urine Color Straw Urine Clarity Clear Urine pH 5.0 Ur Specific [place] 1.004 Urine Protein Negative Urine Glucose (UA) Normal Urine Ketones Trace Urine Blood 1+ H Urine Nitrate Negative Urine Bilirubin Negative Urine Urobilinogen Normal Ur Leukocyte Esterase Neg Urine WBC (Auto) 2 Urine RBC (Auto) 2 Ur Squamous Epith Cells < 1 Urine Opiates Screen Urine Methadone Screen Ur Barbiturates Screen Ur Phencyclidine Scrn Ur Amphetamines Screen U Benzodiazepines Scrn U Oth Cocaine Metabols U Cannabinoids Screen Alcohol, Quantitative 298 H 05/13/17 05/13/17 05/13/17 15:13 15:42 21:44 WBC RBC Hgb Hct MCV MCH MCHC RDW Plt Count MPV Neut % (Auto) Lymph % (Auto) [place] % (Auto) Eos % (Auto) Baso % (Auto) Neut # Lymph # [place] # Eos # Baso # PT 10.8 INR 1.0 APTT 29 Sodium Potassium Chloride Carbon Dioxide Anion Gap BUN Creatinine Est GFR ( Amer) Est GFR (Non-Af Amer) Random Glucose Calcium Total Bilirubin AST ALT Alkaline Phosphatase Total Creatine Kinase 126 CK-MB (Mass) 1.03 Troponin I Troponin I, Quant < 0.0120 Total Protein Albumin Globulin Albumin/Globulin Ratio Lipase Urine Color Urine Clarity Urine pH Ur Specific [place] Urine Protein Urine Glucose (UA) Urine Ketones Urine Blood Urine Nitrate Urine Bilirubin Urine Urobilinogen Ur Leukocyte Esterase Urine WBC (Auto) Urine RBC (Auto) Ur Squamous Epith Cells Urine Opiates Screen Negative Urine Methadone Screen Negative Ur Barbiturates Screen Negative Ur Phencyclidine Scrn Negative Ur Amphetamines Screen Negative U Benzodiazepines Scrn Negative U Oth Cocaine Metabols Negative U Cannabinoids Screen Negative Alcohol, Quantitative
[2017-05-14 08:25] LABS: THYROID STIMULATING HORMONE 2.55 mIU/L (0.46-4.68)
[2017-05-14] MEDS: Multiple Vitamins Tab PO SCH (10:09)
[2017-05-14] MEDS: Enoxaparin 60 mg Syringe SC SCH ×2 (10:12→21:24)
--- NOTE | 2017-05-14 13:00 | MRI ---
PROCEDURE: MRI BRAIN WITHOUT CONTRAST HISTORY: ct head result small left basal ganglia lacunar COMPARISON: Head CT 05/13/2017. TECHNIQUE: Multiplanar, multisequence MR images of the brain were obtained without intravenous contrast enhancement. FINDINGS: HEMORRHAGE: None DWI: No evidence of an acute or early subacute infarction. BRAIN PARENCHYMA: A chronic lacune is identified the left basal ganglia anteriorly correspond to the CT finding. There is no definite acute intracranial finding appreciated grossly. Diffuse cerebral atrophy and chronic microangiopathy are reiterated the current examination. No mass effect or suspicious extra-axial fluid collections identified. Corticomedullary differentiation remains good and there is no suspicious finding in the posterior fossa. Limited microangiopathy seen at the yojana. VENTRICLES: Unremarkable. No hydrocephalus. CRANIUM: Unremarkable. ORBITS: Grossly unremarkable. PARANASAL SINUSES/MASTOIDS: Mild sinusitis seen affecting bilateral frontal and ethmoid air cells as well as the left maxillary sinus. VASCULAR SYSTEM: Skull base flow voids intact. OTHER FINDINGS: None. IMPRESSION: Reiterated age related neuro degenerative changes are seen with a chronic lacune identified in the left basal ganglia anteriorly. No acute intracranial findings are appreciated grossly.
--- NOTE | 2017-05-14 14:41 | VASCLAB ---
PROCEDURE: HISTORY: small left basal ganglia lacunar infarct from ct COMPARISON: None available. TECHNIQUE: Grayscale and duplex Doppler evaluation of the cervical carotid and vertebral arteries were performed. The common carotid, carotid bifurcations and cervical Internal Carotid Artery (ICA) and proximal External Carotid Artery (ECA) were evaluated. The vertebral arteries were evaluated for gross patency and flow direction. Report prepared by Kamaljit Prieto, BS, RVT FINDINGS: RIGHT CAROTID ARTERIES: 1. Common Carotid Artery: No significant focal plaque formation of the right common carotid artery. Maximum Peak Systolic velocity: 63 cm/sec: End-diastolic velocity 11 cm/sec. 2. Carotid Bifurcation: Calcific plaque formation. Maximum Peak Systolic velocity: 53 cm/sec: End-diastolic velocity 12 cm/sec. 3. Internal Carotid Artery: Minimal plaque formation of the right proximal ICA which does not result in hemodynamically significant stenosis. Plaque description: Calcific 3.1. Proximal Segment: Peak systolic velocity 64 cm/sec: End-diastolic velocity 19 cm/sec - % stenosis 0-15% 3.2. Middle Segment: Peak systolic velocity 44 cm/sec: End-diastolic velocity 12 cm/sec - % stenosis 0-15% 3.3. Distal Segment: Peak systolic velocity 77 cm/sec: End-diastolic velocity 25 cm/sec - % stenosis 0-15% 4. External Carotid Artery: No significant focal plaque formation. Peak systolic velocity 61 cm/sec 5. ICA/CCA Ratio: 1.2 LEFT CAROTID ARTERIES: 1. Common Carotid Artery: No significant focal plaque formation of the left common carotid artery. Maximum Peak Systolic velocity: 67 cm/sec: End-diastolic velocity 12 cm/sec. 2. Carotid Bifurcation: Calcific plaque formation. Maximum Peak Systolic velocity: 52 cm/sec: End-diastolic velocity 10 cm/sec. 3. Internal Carotid Artery: Moderate plaque formation of the left proximal ICA which does not results in hemodynamically significant stenosis. Plaque description: Calcific 3.1. Proximal Segment: Peak systolic velocity 37 cm/sec: End-diastolic velocity 11 cm/sec - % stenosis 0-15% 3.2. Middle Segment: Peak systolic velocity 63 cm/sec: End-diastolic velocity 20 cm/sec - % stenosis 0-15% 3.3. Distal Segment: Peak systolic velocity 89 cm/sec: End-diastolic velocity 29 cm/sec - % stenosis 0-15% 4. External Carotid Artery: No significant focal plaque formation. Peak systolic velocity 77 cm/sec 5. ICA/CCA Ratio: 1.3 VERTEBRAL ARTERIES: 1. Right Vertebral Artery: The right vertebral artery flow direction is antegrade. 2. Left Vertebral Artery: The left vertebral artery flow direction is antegrade. OTHER FINDINGS: 1. Right Brachial Blood pressure: 144 mmHg. 2. Left Brachial Blood pressure: 140 mmHg. IMPRESSION: RIGHT: Duplex scan does not suggest hemodynamically significant stenosis of the right extracranial carotid arteries. LEFT: Duplex scan does not suggest hemodynamically significant stenosis of the left extracranial carotid arteries.
--- NOTE | 2017-05-14 16:53 | CON ---
LOCATION: Room# 665, bed 2. ATTENDING PHYSICIAN: Rakesh Arisa MD REASON FOR CONSULTATION: Syncopal attack. HISTORY OF PRESENT ILLNESS: The patient is a 62-year-old right-handed male, admitted with history of syncopal attack. He claims that 3 times it happened yesterday, one time while he was coming out of the bus he passed, next thing he realized he was on the street. He also admitted that he was tremulous, he was aware of the symptoms. No history of bowel or bladder incontinence. No history of bit of tongue. This has been going on for last 2 years. He also admitted with the history of alcohol abuse in the past, being rehabilitated in the past. At present, he is also drinking beer prior to this happened. He was admitted here for the same problem, being worked up and he was sent home. PAST MEDICAL HISTORY: Arthritis, asthma, chronic back problem, BPH, bronchitis, history of cardiac aneurysm, CHF, COPD, diabetes mellitus, emphysema, gastritis, hypertension, hypercholesterolemia, ? seizures. PAST SURGICAL HISTORY: Status post hernia repair in the past. PERSONAL HISTORY: He smokes, drinks beer as well. No history of using illicit drugs. REVIEW OF SYSTEMS: As per H and P. MEDICATIONS: Aspirin, Carafate, Crestor, Flomax, folic acid, multivitamin, Librium, Spiriva, and vitamin B1. PHYSICAL EXAMINATION: VITAL SIGNS: Blood pressure 128/83, mean arterial pressure of 98, respiratory rate 20, temperature 97.8, pulse rate 93. NECK: Supple. No carotid bruit. CARDIOPULMONARY: Heart sounds regular. CHEST: Fair air entry. EXTREMITIES: No edema in legs. NEUROLOGIC: Mental status examination: He is awake, alert, oriented to person, place, and time. No confusion. No confabulation. No suicidal ideation. No depression. Cranial nerve examination: Visual field intact. Pupils react to light. Extraocular movement intact. Some end gaze nystagmus noted on right lateral gaze. No facial sensory deficits. No facial asymmetry. Hearing is normal. Tongue is midline. Good gag. Motor examination: He has some tremor noted at times and keeping hands up with eyes closed. No drift noted. No asterixis. Deep tendon reflexes: Biceps, brachialis, triceps, both ankles are absent. Plantars are equivocally response on both sides. Sensory examination: No cortical sensory loss. 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 Coordination: [id number] test, mild dysmetria noted on both sides. Gait: Deferred at this time. He admitted he was walking wobbly. WORKUP: CT of the head reported as negative for bleed, old basal ganglia infarct. Cervical spine showed spondylolisthesis and degenerative changes noted. LABORATORY DATA: Blood workup: WBC 5.8, hemoglobin 14.2, hematocrit 40.3, platelet 180. PT 10.8, INR 1.0, PTT 29. Sodium 136, potassium 5.2, chloride 99, bicarbonate is 17, BUN 6, GFR more than 60, calcium 8.9, AST 61, total protein 8.8, albumin 5.1. Blood 1+ and alcohol level was 298 at the time when he came into the hospital. CONCLUSION: 1. The patient has been presenting with recurrence of syncopal attack without any witnessed seizure activities. This is probably secondary to alcohol intoxication. 2. Recurrent syncope and cardiac history and cardiac arrhythmias should be ruled out during this admission. 3. 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 RECOMMENDATION: 1. I agree with MRI of the brain to rule out any structural causes. 2. EEG to rule out any electrographic seizures. 3. Alcohol abstinence and social service evaluation for substance abuse rehabilitation. 4. Cardiac evaluation. 5. Continue Librium tapering dose with multivitamin supplements. 6. The patient will be followed closely with you. Chavo Leahy MD
--- NOTE | 2017-05-14 22:58 | CP.PCM.PN ---
Subjective - Date & Time of Evaluation Date of Evaluation: 05/14/17 Time of Evaluation: 18:35 - Subjective Subjective: pt is doing well, no new stroke on MRI, pt B.P in under control. he is less tremolous, less shaking Objective - Vital Signs/Intake and Output Vital Signs (last 24 hours): Temp Pulse Resp BP Pulse Ox 97.9 F 79 20 146/96 H 98 05/14/17 15:15 05/14/17 15:30 05/14/17 15:15 05/14/17 15:15 05/14/17 15:15 Intake and Output: 05/14/17 05/15/17 18:59 06:59 Intake Total 500 480 Balance 500 480 - Medications Medications: Current Medications Aspirin (Aspirin Chewable) 81 mg PO DAILY [facility] Last Admin: 05/14/17 10:09 Dose: 81 mg Chlordiazepoxide (Librium) 25 mg PO Q4 PRN PRN Reason: alcohol withdrawal Last Admin: 05/14/17 07:54 Dose: 25 mg Enoxaparin Sodium (Lovenox) 60 mg SC Q12 [facility] Last Admin: 05/14/17 21:24 Dose: 60 mg Folic Acid (Folic Acid) 1 mg PO DAILY [facility] Last Admin: 05/14/17 10:09 Dose: 1 mg Multivitamins (Hexavitamin) 1 tab PO DAILY [facility] Last Admin: 05/14/17 10:09 Dose: 1 tab Rosuvastatin Calcium (Crestor) 40 mg PO HS [facility] Last Admin: 05/14/17 21:24 Dose: 40 mg Sucralfate (Carafate Tab) 1 gm PO BID [facility] Last Admin: 05/14/17 17:35 Dose: 1 gm Tamsulosin HCl (Flomax) 0.4 mg PO DAILY [facility] Last Admin: 05/14/17 10:09 Dose: 0.4 mg Thiamine HCl (Vitamin B1 Tab) 100 mg PO DAILY [facility] Last Admin: 05/14/17 10:09 Dose: 100 mg Tiotropium [place] (Spiriva) 18 mcg INH RQ24 [facility] - Labs Labs: 05/13/17 15:05 05/13/17 15:05 PT 10.8 SECONDS (9.7-12.2) 05/13/17 15:42 INR 1.0 05/13/17 15:42 APTT 29 SECONDS (21-34) 05/13/17 15:42 - Constitutional Appears: No Acute Distress - Head Exam Head Exam: ATRAUMATIC, NORMAL INSPECTION, NORMOCEPHALIC - Eye Exam Eye Exam: EOMI, Normal appearance, PERRL Pupil Exam: NORMAL ACCOMODATION, PERRL - Respiratory Exam Respiratory Exam: Clear to Ausculation Bilateral, NORMAL BREATHING PATTERN - Cardiovascular Exam Cardiovascular Exam: REGULAR RHYTHM, +S1, +S2. absent: Murmur - GI/Abdominal Exam GI & Abdominal Exam: Soft, Normal Bowel Sounds. absent: Tenderness - Back Exam Back Exam: NORMAL INSPECTION - Neurological Exam Neurological Exam: Alert, Awake, CN II-XII Intact, Normal Gait, Oriented x3 Assessment and Plan (1) Syncope Status: Acute (2) Labile essential hypertension Status: Acute (3) Alcohol dependence Assessment & Plan: continue current management Status: Acute
[2017-05-15 07:19] LABS: BASO % 0.5 % (0.0-2.0); EOS # 0.2 K/uL (0.0-0.7); EOS % 3.9 % (0.0-4.0); HEMATOCRIT 41.6 % (35.0-51.0); LYMPH # 1.6 K/uL (1.0-4.3); LYMPH % 33.3 % (20.0-40.0); MEAN CELL VOLUME 93.9 fL (80.0-94.0); MEAN CORPUSCULAR HEMOGLOBIN 32.1 pg (27.0-31.0); MEAN CORPUSCULAR HGB CONC 34.2 g/dL (33.0-37.0); MEAN PLATELET VOLUME 8.1 fL (7.2-11.7); MONO # 0.5 K/uL (0.0-0.8); MONO % 10.4 % (0.0-10.0); NRBC % 0.1 % (0.0-2.0); RED CELL DISTRIBUTION WIDTH 13.9 % (11.5-14.5); WHITE BLOOD COUNT 4.7 K/uL (4.8-10.8)
[2017-05-15 07:35] LABS: CHLORIDE 98 mmol/L (98-107); SODIUM 137 mmol/L (132-148)
[2017-05-15 07:38] LABS: ALB/GLOB RATIO 1.3 (1.0-2.1); ALKALINE PHOSPHATASE 53 U/L (38-126); AST/SGOT 36 U/L (17-59); BILIRUBIN,TOTAL 0.7 mg/dL (0.2-1.3); BLOOD UREA NITROGEN 9 mg/dL (9-20); CARBON DIOXIDE 24 mmol/L (22-30); GFR AFRICAN-AMERICAN > 60; GLUCOSE,RANDOM 98 mg/dL (75-110); TOTAL PROTEIN 8.1 g/dL (6.3-8.3)
[2017-05-15 07:39] LABS: ALT/SGPT 38 U/L (21-72); CALCIUM 9.6 mg/dl (8.6-10.4)
[2017-05-15] MEDS: Enoxaparin 60 mg Syringe SC SCH ×2 (09:26→21:50)
[2017-05-15] MEDS: Multiple Vitamins Tab PO SCH (09:27)
[2017-05-15] MEDS: Tiotropium 18 mcg Cap For Inhalation INH SCH (11:54)
--- NOTE | 2017-05-15 20:26 | PN ---
DATE: NEUROLOGICAL PROBLEM: Possible alcohol-related seizure. PHYSICAL EXAMINATION VITAL SIGNS: Blood pressure 92/58, mean arterial pressure of 62; respiratory rate 16, temperature afebrile. NECK: Supple. No carotid bruits. HEART: Sounds regular. The patient presents to be normal mentation and no sign of delirium tremors, no sign of current confusion or confabulation. She is walking with a broad-based gait. If medically stable, the patient can be discharged and should have a followup visit as an outpatient. Social service should be involved for substance abuse rehabilitation. No antiepileptic drugs needed from neurological point of view. Chavo Leahy MD
--- NOTE | 2017-05-15 21:20 | CP.PCM.PN ---
Subjective - Date & Time of Evaluation Date of Evaluation: 05/15/17 Time of Evaluation: 16:00 - Subjective Subjective: Pt seen and examined, is less shaky, less tremoulous, less tacycardia, ambulating , on librium Objective - Vital Signs/Intake and Output Vital Signs (last 24 hours): Temp Pulse Resp BP Pulse Ox 97.2 F L 102 H 20 92/48 L 99 05/15/17 08:00 05/15/17 12:00 05/15/17 08:00 05/15/17 08:00 05/15/17 08:00 Intake and Output: 05/15/17 05/16/17 18:59 06:59 Intake Total 460 Balance 460 - Medications Medications: Current Medications Aspirin (Aspirin Chewable) 81 mg PO DAILY [facility] Last Admin: 05/15/17 09:27 Dose: 81 mg Chlordiazepoxide (Librium) 25 mg PO Q4 PRN PRN Reason: alcohol withdrawal Last Admin: 05/15/17 09:27 Dose: 25 mg Enoxaparin Sodium (Lovenox) 60 mg SC Q12 [facility] Last Admin: 05/15/17 09:26 Dose: 60 mg Folic Acid (Folic Acid) 1 mg PO DAILY [facility] Last Admin: 05/15/17 09:27 Dose: 1 mg Multivitamins (Hexavitamin) 1 tab PO DAILY [facility] Last Admin: 05/15/17 09:27 Dose: 1 tab Rosuvastatin Calcium (Crestor) 40 mg PO HS [facility] Last Admin: 05/14/17 21:24 Dose: 40 mg Sucralfate (Carafate Tab) 1 gm PO BID [facility] Last Admin: 05/15/17 18:15 Dose: 1 gm Tamsulosin HCl (Flomax) 0.4 mg PO DAILY [facility] Last Admin: 05/15/17 09:27 Dose: 0.4 mg Thiamine HCl (Vitamin B1 Tab) 100 mg PO DAILY [facility] [place] Last Admin: 05/15/17 09:27 Dose: 100 mg Tiotropium [place] (Spiriva) 18 mcg INH RQ24 [facility] Last Admin: 05/15/17 11:54 Dose: 18 mcg - Labs Labs: 05/15/17 07:03 05/15/17 07:03 PT 10.8 SECONDS (9.7-12.2) 05/13/17 15:42 INR 1.0 05/13/17 15:42 APTT 29 SECONDS (21-34) 05/13/17 15:42 - Constitutional Appears: No Acute Distress - Head Exam Head Exam: ATRAUMATIC, NORMAL INSPECTION, NORMOCEPHALIC - Eye Exam Eye Exam: EOMI, Normal appearance, PERRL Pupil Exam: NORMAL ACCOMODATION, PERRL - Respiratory Exam Respiratory Exam: Clear to Ausculation Bilateral, NORMAL BREATHING PATTERN - Cardiovascular Exam Cardiovascular Exam: REGULAR RHYTHM, +S1, +S2. absent: Murmur - GI/Abdominal Exam GI & Abdominal Exam: Soft, Normal Bowel Sounds. absent: Tenderness Assessment and Plan (1) Syncope Status: Acute (2) Labile essential hypertension Status: Acute (3) Alcohol dependence Status: Acute
--- NOTE | 2017-05-16 00:23 | EEG ---
DATE: 05/14/2017 This is a 16-channel electroencephalogram of an awake and a drowsy adult. During the study, photic stimulation was performed. Hyperventilation was not performed. The resting electroencephalogram consists of 9 to 11 hertz, moderate voltage alpha activity seen at parietal and occipital leads. Anteriorly, fast activity superimposed with 2 to 3 hertz delta activity seen. Intermittent movement artifact contaminated the background rhythm. Photic stimulation did not evoke driving response noted after 2 to 20 hertz. IMPRESSION: This is a normal electroencephalogram of an awake and a drowsy adult. During the study, neither electroencephalographic paroxysmal activities nor focal slowing noted. Chavo Leahy MD
[2017-05-16] MEDS: Multiple Vitamins Tab PO SCH (10:11)
[2017-05-16] MEDS: Enoxaparin 60 mg Syringe SC SCH ×2 (10:12→21:27)
[2017-05-16] MEDS: Tiotropium 18 mcg Cap For Inhalation INH SCH (10:16)
--- NOTE | 2017-05-16 18:27 | CARD ---
APPROVED REPORT EKG Measurement Heart [id number] <Conclusion> Normal sinus rhythm Minimal voltage criteria for LVH, may be normal variant Septal infarct, age undetermined Abnormal ECG
--- NOTE | 2017-05-16 21:42 | CP.PCM.PN ---
Subjective - Date & Time of Evaluation Date of Evaluation: 05/16/17 Time of Evaluation: 16:35 - Subjective Subjective: PT CONTINUES TO IMPROVE, LESS TREMOULOS, LESS SHAKING, B.P IS STABLE Objective - Vital Signs/Intake and Output Vital Signs (last 24 hours): Temp Pulse Resp BP Pulse Ox 97.5 F L 88 18 139/87 100 05/16/17 16:00 05/16/17 18:12 05/16/17 16:00 05/16/17 16:00 05/16/17 16:00 - Medications Medications: Current Medications Aspirin (Aspirin Chewable) 81 mg PO DAILY [facility] Last Admin: 05/16/17 10:12 Dose: 81 mg Chlordiazepoxide (Librium) 25 mg PO Q4 PRN PRN Reason: alcohol withdrawal Last Admin: 05/15/17 09:27 Dose: 25 mg Enoxaparin Sodium (Lovenox) 60 mg SC Q12 [facility] Last Admin: 05/16/17 21:27 Dose: 60 mg Folic Acid (Folic Acid) 1 mg PO DAILY [facility] Last Admin: 05/16/17 10:12 Dose: 1 mg Multivitamins (Hexavitamin) 1 tab PO DAILY [facility] Last Admin: 05/16/17 10:11 Dose: 1 tab Rosuvastatin Calcium (Crestor) 40 mg PO HS [facility] Last Admin: 05/16/17 21:26 Dose: 40 mg Sucralfate (Carafate Tab) 1 gm PO BID [facility] Last Admin: 05/16/17 17:24 Dose: 1 gm Tamsulosin HCl (Flomax) 0.4 mg PO DAILY [facility] Last Admin: 05/16/17 10:11 Dose: 0.4 mg Thiamine HCl (Vitamin B1 Tab) 100 mg PO DAILY [facility] Last Admin: 05/16/17 10:11 Dose: 100 mg Tiotropium [place] (Spiriva) 18 mcg INH RQ24 [facility] Last Admin: 05/16/17 10:16 Dose: 18 mcg - Labs Labs: 05/15/17 07:03 05/15/17 07:03 PT 10.8 SECONDS (9.7-12.2) 05/13/17 15:42 INR 1.0 05/13/17 15:42 APTT 29 SECONDS (21-34) 05/13/17 15:42 - Constitutional Appears: No Acute Distress - Head Exam Head Exam: ATRAUMATIC, NORMAL INSPECTION, NORMOCEPHALIC - Eye Exam Eye Exam: EOMI, Normal appearance, PERRL Pupil Exam: NORMAL ACCOMODATION, PERRL - Respiratory Exam Respiratory Exam: Clear to Ausculation Bilateral, NORMAL BREATHING PATTERN - Cardiovascular Exam Cardiovascular Exam: REGULAR RHYTHM, +S1, +S2. absent: Murmur - GI/Abdominal Exam GI & Abdominal Exam: Soft, Normal Bowel Sounds. absent: Tenderness - Rectal Exam Rectal Exam: Deferred Assessment and Plan (1) Syncope Status: Acute (2) Labile essential hypertension Status: Acute (3) Alcohol dependence Status: Acute
[2017-05-17 03:37] VITALS: RESP 20
[2017-05-17 08:30] VITALS: BP 149/94; PULSE 94; TEMP 97.6; O2SAT 98
[2017-05-17] MEDS: Tiotropium 18 mcg Cap For Inhalation INH SCH (09:43)
[2017-05-17] MEDS: Enoxaparin 60 mg Syringe SC SCH (09:52)
[2017-05-17] MEDS: Multiple Vitamins Tab PO SCH (09:52)
--- NOTE | 2017-05-17 13:36 | CP.PCM.PN ---
Subjective - Date & Time of Evaluation Date of Evaluation: 05/17/17 Time of Evaluation: 10:50 - Subjective Subjective: Pt seen today, denies any chest pain, sob, palpitations, dizziness , N/V/d oob ambulating the hallway , no sob/dizziness on activity No overnight events reported by RN Objective - Vital Signs/Intake and Output Vital Signs (last 24 hours): Temp Pulse Resp BP Pulse Ox 97.6 F 94 H 20 149/94 H 98 05/17/17 08:29 05/17/17 08:29 05/17/17 08:29 05/17/17 08:29 05/17/17 08:29 Intake and Output: 05/17/17 05/17/17 06:59 18:59 Intake Total 740 Balance 740 - Medications Medications: Current Medications Aspirin (Aspirin Chewable) 81 mg PO DAILY [facility] Last Admin: 05/17/17 09:52 Dose: 81 mg Chlordiazepoxide (Librium) 25 mg PO Q4 PRN PRN Reason: alcohol withdrawal Last Admin: 05/15/17 09:27 Dose: 25 mg Enoxaparin Sodium (Lovenox) 60 mg SC Q12 [facility] Last Admin: 05/17/17 09:52 Dose: 60 mg Folic Acid (Folic Acid) 1 mg PO DAILY [facility] Last Admin: 05/17/17 09:52 Dose: 1 mg Multivitamins (Hexavitamin) 1 tab PO DAILY [facility] Last Admin: 05/17/17 09:52 Dose: 1 tab Rosuvastatin Calcium (Crestor) 40 mg PO HS [facility] Last Admin: 05/16/17 21:26 Dose: 40 mg Sucralfate (Carafate Tab) 1 gm PO BID [facility] Last Admin: 05/17/17 09:52 Dose: 1 gm Tamsulosin HCl (Flomax) 0.4 mg PO DAILY [facility] Last Admin: 05/17/17 09:52 Dose: 0.4 mg Thiamine HCl (Vitamin B1 Tab) 100 mg PO DAILY [facility] Last Admin: 05/17/17 09:52 Dose: 100 mg Tiotropium [place] (Spiriva) 18 mcg INH RQ24 [facility] Last Admin: 05/17/17 09:43 Dose: 18 mcg - Labs Labs: 05/15/17 07:03 05/15/17 07:03 PT 10.8 SECONDS (9.7-12.2) 05/13/17 15:42 INR 1.0 05/13/17 15:42 APTT 29 SECONDS (21-34) 05/13/17 15:42 - Constitutional Appears: No Acute Distress - Respiratory Exam Respiratory Exam: Clear to Ausculation Bilateral, NORMAL BREATHING PATTERN - Cardiovascular Exam Cardiovascular Exam: REGULAR RHYTHM, +S1, +S2 - Neurological Exam Neurological Exam: Alert, Awake, Oriented x3 Assessment and Plan - Assessment and Plan (Free Text) Assessment: A/P 62 yr old male admitted for syncope MRI- Reiterated age related neuro degenerative changes are seen with a chronic lacune identified in the left basal ganglia anteriorly. No acute intracranial findings are appreciated grossly. CAROTID DUPLEX- mild disease seen by Neurologist Dr. Leahy , cleared for discharge from neurology stand point and f/u out pt D/W Dr. Arias, stable for discharge home today and f/u with PMD at [facility] [place] 3- 5 days discharge plan discussed with patient who understands and agrees with plan Patient instructed to returns to ED if symptoms returns
--- NOTE | 2017-05-17 22:10 | CP.PCM.DIS ---
Provider - Provider Date of Admission: 05/14/17 17:30 Attending physician: Rakesh Arias MD Time Spent in preparation of Discharge (in minutes): 56 Diagnosis - Discharge Diagnosis (1) Syncope Status: Acute (2) Labile essential hypertension Status: Acute (3) Alcohol dependence Status: Acute Hospital Course - Lab Results Lab Results: Most Recent Lab Values WBC 4.7 K/uL (4.8-10.8) L 05/15/17 07:03 RBC 4.43 Mil/uL (4.40-5.90) 05/15/17 07:03 Hgb 14.2 g/dL (12.0-18.0) 05/15/17 07:03 Hct 41.6 % (35.0-51.0) 05/15/17 07:03 MCV 93.9 fL (80.0-94.0) 05/15/17 07:03 MCH 32.1 pg (27.0-31.0) H 05/15/17 07:03 MCHC 34.2 g/dL (33.0-37.0) 05/15/17 07:03 RDW 13.9 % (11.5-14.5) 05/15/17 07:03 Plt Count 188 K/uL (130-400) 05/15/17 07:03 MPV 8.1 fL (7.2-11.7) 05/15/17 07:03 Neut % (Auto) 51.9 % (50.0-75.0) 05/15/17 07:03 Lymph % (Auto) 33.3 % (20.0-40.0) 05/15/17 07:03 [place] % (Auto) 10.4 % (0.0-10.0) H 05/15/17 07:03 Eos % (Auto) 3.9 % (0.0-4.0) 05/15/17 07:03 Baso % (Auto) 0.5 % (0.0-2.0) 05/15/17 07:03 Neut # 2.4 K/uL (1.8-7.0) 05/15/17 07:03 Lymph # 1.6 K/uL (1.0-4.3) 05/15/17 07:03 [place] # 0.5 K/uL (0.0-0.8) 05/15/17 07:03 Eos # 0.2 K/uL (0.0-0.7) 05/15/17 07:03 Baso # 0.0 K/uL (0.0-0.2) 05/15/17 07:03 PT 10.8 SECONDS (9.7-12.2) 05/13/17 15:42 INR 1.0 05/13/17 15:42 APTT 29 SECONDS (21-34) 05/13/17 15:42 Sodium 137 mmol/L (132-148) 05/15/17 07:03 Potassium 4.0 mmol/L (3.6-5.2) 05/15/17 07:03 Chloride 98 mmol/L (98-107) 05/15/17 07:03 Carbon Dioxide 24 mmol/L (22-30) 05/15/17 07:03 Anion Gap 20 (10-20) 05/15/17 07:03 BUN 9 mg/dL (9-20) 05/15/17 07:03 Creatinine 0.5 mg/dL (0.8-1.5) L 05/15/17 07:03 Est GFR ( Amer) > 60 05/15/17 07:03 Est GFR (Non-Af Amer) > 60 05/15/17 07:03 Random Glucose 98 mg/dL (75-110) 05/15/17 07:03 Calcium 9.6 mg/dl (8.6-10.4) 05/15/17 07:03 Total Bilirubin 0.7 mg/dL (0.2-1.3) 05/15/17 07:03 AST 36 U/L (17-59) 05/15/17 07:03 ALT 38 U/L (21-72) 05/15/17 07:03 Alkaline Phosphatase 53 U/L (38-126) 05/15/17 07:03 Total Creatine Kinase 123 U/L (55-170) 05/14/17 06:19 CK-MB (Mass) 0.90 ng/mL (0.0-3.38) 05/14/17 06:19 Troponin I < 0.0120 ng/mL (0.00-0.120) 05/13/17 15:05 Troponin I, Quant < 0.0120 ng/mL (0.00-0.120) 05/14/17 06:19 Total Protein 8.1 g/dL (6.3-8.3) 05/15/17 07:03 Albumin 4.5 g/dL (3.5-5.0) 05/15/17 07:03 Globulin 3.6 gm/dL (2.2-3.9) 05/15/17 07:03 Albumin/Globulin Ratio 1.3 (1.0-2.1) 05/15/17 07:03 Triglycerides 50 mg/dL (0-149) D 05/14/17 06:19 Cholesterol 186 mg/dL (0-199) 05/14/17 06:19 LDL Cholesterol Direct 89 mg/dL (0-129) 05/14/17 06:19 HDL Cholesterol 104 mg/dL (30-70) H 05/14/17 06:19 Lipase 231 U/L (23-300) 05/13/17 15:05 Vitamin B12 440 pg/mL (239-931) 05/14/17 06:19 TSH 3rd Generation 2.55 mIU/L (0.46-4.68) 05/14/17 06:19 Urine Color Straw (YELLOW) 05/13/17 15:13 Urine Clarity Clear (Clear) 05/13/17 15:13 Urine pH 5.0 (5.0-8.0) 05/13/17 15:13 Ur Specific Ama 1.004 (1.003-1.030) 05/13/17 15:13 Urine Protein Negative mg/dL (NEGATIVE) 05/13/17 15:13 Urine Glucose (UA) Normal mg/dL (Normal) 05/13/17 15:13 Urine Ketones Trace mg/dL (NEGATIVE) 05/13/17 15:13 Urine Blood 1+ (NEGATIVE) H 05/13/17 15:13 Urine Nitrate Negative (NEGATIVE) 05/13/17 15:13 Urine Bilirubin Negative (NEGATIVE) 05/13/17 15:13 Urine Urobilinogen Normal mg/dL (0.2-1.0) 05/13/17 15:13 Ur Leukocyte Esterase Neg [place]ira/uL (Negative) 05/13/17 15:13 Urine WBC (Auto) 2 /hpf (0-5) 05/13/17 15:13 Urine RBC (Auto) 2 /hpf (0-3) 05/13/17 15:13 Ur Squamous Epith Cells < 1 /hpf (0-5) 05/13/17 15:13 Urine Opiates Screen Negative (NEGATIVE) 05/13/17 15:13 Urine Methadone Screen Negative (NEGATIVE) 05/13/17 15:13 Ur Barbiturates Screen Negative (NEGATIVE) 05/13/17 15:13 Ur Phencyclidine Scrn Negative (NEGATIVE) 05/13/17 15:13 Ur Amphetamines Screen Negative (NEGATIVE) 05/13/17 15:13 U Benzodiazepines Scrn Negative (NEGATIVE) 05/13/17 15:13 U Oth Cocaine Metabols Negative (NEGATIVE) 05/13/17 15:13 U Cannabinoids Screen Negative (NEGATIVE) 05/13/17 15:13 Alcohol, Quantitative 298 mg/dl (0-10) H 05/13/17 15:05 RPR Nonreactive (NONREACTIVE) 05/14/17 06:19 - Hospital Course Hospital Course: Pt is seen and evaluated at bedside, is afebrile, B.p is stable, not delirious and he is for discharge A/P 62 yr old male admitted for syncope MRI- Reiterated age related neuro degenerative changes are seen with a chronic lacune identified in the left basal ganglia anteriorly. No acute intracranial findings are appreciated grossly. CAROTID DUPLEX- mild disease seen by Neurologist Dr. Leahy , cleared for discharge from neurology stand point and f/u out pt stable for discharge home today and f/u with PMD at [facility] [place] 3- 5 days discharge plan discussed with patient who understands and agrees with plan Patient instructed to returns to ED if symptoms returns Discharge Exam - Head Exam Head Exam: ATRAUMATIC, NORMAL INSPECTION, NORMOCEPHALIC - Eye Exam Eye Exam: Normal appearance - Respiratory Exam Respiratory Exam: Clear to PA & Lateral - Cardiovascular Exam Cardiovascular Exam: REGULAR RHYTHM, +S1, +S2 - GI/Abdominal Exam GI & Abdominal Exam: Normal Bowel Sounds Discharge Plan - Discharge Medications Prescriptions: Lisinopril [Zestril] 20 mg PO DAILY #30 tablet - Follow Up Plan Condition: SERIOUS Disposition: HOME/ ROUTINE Instructions: Lisinopril (By mouth), Heart Failure (DC), Heart Healthy Diet (DC ), Syncope (DC) Additional Instructions: [place] Please continue medication as per Med. Rec. Referrals: Rakesh Arias MD [Staff Provider] -
== END 2017-05-17 14:45 | disposition home or self-care (01) | DRG 141 ==
LOC: C.ER 12:43 → C.9E 15:50 → C.6T 19:48 → OBSVTOIN 05-14 17:30 → C.6T 05-16 16:39
PROVIDERS: ADMIT Internal Medicine; ATTEND Internal Medicine
DX: R55 Syncope and collapse (principal); E86.0 Dehydration; F10.229 Alcohol dependence with intoxication, unspecified; I11.0 Hypertensive heart disease with heart failure; I50.9 Heart failure, unspecified; J44.9 Chronic obstructive pulmonary disease, unspecified; J43.9 Emphysema, unspecified; G62.1 Alcoholic polyneuropathy; E78.00 Pure hypercholesterolemia, unspecified; N40.0 Benign prostatic hyperplasia without lower urinary tract symptoms; G89.29 Other chronic pain; I95.1 Orthostatic hypotension; R73.03 Prediabetes; Y90.8 Blood alcohol level of 240 mg/100 ml or more; F17.210 Nicotine dependence, cigarettes, uncomplicated

== ENCOUNTER 2017-05-23 14:02 | Emergency (ER) | payer OTHER ==
[2017-05-23 14:03] VITALS: BMI 20.7
[2017-05-23 14:11] VITALS: BP 103/67; PULSE 108; RESP 20; TEMP 98.2; O2SAT 97
--- NOTE | 2017-05-23 14:26 | C.PDOC ---
History Of Present Illness 62 year old male presents to the ED for evaluation of a headache x years Patient states he was recently admitted in this hospital and was discharged around 1 week ago. During his stay, patient underwent a head CT for complaints this headache, and the CT showed no acute findings. He also underwent EEG and MRI, he states. Pain is in the R sided posterior neck, worse with turning of the head. Patient denies fever, chills, vomiting, extremity numbness/weakness. Patient has not taken any medicine to manage his symptoms and states he came to the ED for pain medication. PMD: Dr. Tl Cavanaugh Time Seen by Provider: 05/23/17 14:14 Chief Complaint (Nursing): Headache History Per: Patient History/Exam Limitations: no limitations Onset/Duration Of Symptoms: Days Current Symptoms Are (Timing): Still Present Reports Recently: Seen In ED, Treated By A Physician, Hospitalized Additional History Per: Patient Past Medical History Reviewed: Historical Data, Nursing Documentation, Vital Signs Vital Signs: Last Vital Signs Temp 98.2 F 05/23/17 14:05 Pulse 108 H 05/23/17 14:05 Resp 20 05/23/17 14:05 BP 103/67 05/23/17 14:05 Pulse Ox 97 05/23/17 14:58 - Medical History PMH: Arthritis, Asthma, Back Problems, Benign Prostatic Hyperplasia, Bronchitis , Cardiac Aneurysm, CHF, COPD, Diabetes (Borderline), Emphysema, Gastritis, HTN , Hypercholesterolemia, Seizures Surgical History: Hernia Repair - [facility] Procedures ALCOHOL DETOXIFICATION (11/15/14) DETOXIFICATION SERVICES FOR SUBSTANCE ABUSE TREATMENT (03/08/17) INDIV PSYCHOTHERAPY FOR SUBSTANCE ABUSE TREATMENT, SUPPORT (03/08/17) INDIV PSYCHOTHERAPY FOR SUBSTANCE ABUSE, COGNITIV BEHAVIORAL (03/08/17) INDIV PSYCHOTHERAPY FOR SUBSTANCE ABUSE, PSYCHOEDUCATION (03/08/17) INSERT INDWELLING CATH (06/08/13) TETANUS TOXOID ADMINIST (05/28/14) Family History: States: Unknown Family Hx - Social History Hx Tobacco Use: Yes Hx Alcohol Use: Yes Hx Substance Use: No - Immunization History Hx Tetanus Toxoid Vaccination: Yes Hx Influenza Vaccination: Yes Hx Pneumococcal Vaccination: Yes Review Of Systems Except As Marked, All Systems Reviewed And Found Negative. Constitutional: Negative for: Fever, Chills Cardiovascular: Negative for: Chest Pain Physical Exam - Physical Exam Additional Physical Exam Comments: Constitutional: No acute distress. Head: Normocephalic. Atraumatic. Eyes: PERRL. ENT: Moist mucous membranes. Neck: Supple. Left-sided paracervical tenderness. Cardiovascular: Regular rate. Radial pulse 2+ bilaterally. Chest: No tenderness. Respiratory: Clear to auscultation bilaterally. GI: Soft. Nontender. Nondistended. Back: No CVA tenderness. Musculoskeletal: No tenderness or swelling of extremities. Skin: No rash. Neurologic: Alert, no focal deficit. Oriented x 3. Motor 5/5 x 4. Steady gait. ED Course And Treatment O2 Sat by Pulse Oximetry: 97 (on RA) Pulse Ox Interpretation: Normal Medical Decision Making Medical Decision Making: Impression: 62 year old male with headache Plan: * Toradol IM * reassess and disposition Progress: Toradol IM administered. Discharged home, has follow up with primary care tomorrow. Instructed to return to ED for worsening pain, vision change, vomiting, numbness, weakness, or any other problem. Disposition - Disposition Disposition: HOME/ ROUTINE Disposition Time: 14:25 Condition: STABLE Prescriptions: Ibuprofen [Motrin] 1 tab PO Q6 #30 tab Methocarbamol [Robaxin-750] 1 tab PO Q8H #12 tablet Instructions: Cervical Strain (DC) Forms: [employer] ([place]) - Clinical Impression Clinical Impression: Cervical strain - Scribe Statement The provider has reviewed the documentation as recorded by the Scribe (Isabell Caban) Provider Attestation: All medical record entries made by the Scribe were at my direction and personally dictated by me. I have reviewed the chart and agree that the record accurately reflects my personal performance of the history, physical exam, medical decision making, and the department course for this patient. I have also personally directed, reviewed, and agree with the discharge instructions and disposition.
== END 2017-05-23 14:42 | disposition home or self-care (01) ==
LOC: C.ER 14:02
DX: S16.1XXA Strain of muscle, fascia and tendon at neck level, initial encounter (principal); X58.XXXA Exposure to other specified factors, initial encounter
CPT/HCPCS: 96372; 99285; J1885

== ENCOUNTER 2017-09-06 18:36 | Emergency (ER) | payer OTHER ==
[2017-09-06 18:36] VITALS: BMI 20.7
[2017-09-06 18:44] VITALS: RESP 18
[2017-09-06 20:52] VITALS: BP 92/63; PULSE 102; TEMP 97.6; O2SAT 99
== END 2017-09-06 22:30 | disposition left against medical advice (07) ==
LOC: C.ER 18:36
DX: Z02.89 Encounter for other administrative examinations (principal); I95.9 Hypotension, unspecified

== ENCOUNTER 2017-12-11 17:08 | Inpatient (IN) | payer OTHER ==
[2017-12-11 17:08] VITALS: BMI 20.7
[2017-12-11] MEDS ORDERED: Albuterol-Ipratrop 3 mg / 0.5 (3 ml) UD IH STA (17:28)
[2017-12-11] MEDS ORDERED: Sodium Chloride 0.9% 1,000 ML IV ONE (17:30)
--- NOTE | 2017-12-11 17:31 | C.PDOC ---
History Of Present Illness 62 yo white male h/o HTN, Emphysema, CAD, alcoholism, followed up in [place] [facility] in [facility] for evaluation of occipital headache associated with neck pain and spasm " taking steroid shot for it" gradually developed since today AM. Pt also reports, " has chronic sinuses pressure, hard to breath , feel chest tightness, need my pump". Pt sts, non-complaint with his medication , does not take BP medication for few days. Had 2 beers this AM. Had similar headache and neck pain in past. At present time, pt appears comfortable, not in resp. distress, poor historian. FYI: Records from previous ED visits review. Multiple visits due to headache, chest pain. 05/14/17: MRI head IMPRESSION: Reiterated age related neuro degenerative changes are seen with a chronic lacune identified in the left basal ganglia anteriorly. No acute intracranial findings are appreciated grossly. C_SPINE CT : mpression: No evidence of acute fracture. Straightening of the normal cervical lordosis may be related to muscle spasm or positioning. 3 mm anterolisthesis of C4 on C5. Multilevel degenerative changes of the spine including intervertebral disc space narrowing and osteophyte formation. Mucosal thickening of the included frontal sinuses, ethmoid air cells, and left maxillary sinus. Emphysematous changes at the lung apices. Time Seen by Provider: 12/11/17 17:15 Chief Complaint (Nursing): Dizziness/Lightheaded History Per: Patient Past Medical History Reviewed: Historical Data, Nursing Documentation, Vital Signs Vital Signs: Last Vital Signs Temp 98.6 F 12/11/17 17:18 Pulse 125 H 12/11/17 17:18 Resp 22 12/11/17 17:18 BP 154/106 H 12/11/17 17:18 Pulse Ox 98 12/11/17 18:45 - Medical History PMH: Arthritis, Asthma, Back Problems, Benign Prostatic Hyperplasia, Bronchitis , Cardiac Aneurysm, CHF, COPD, Diabetes (Borderline), Emphysema, Gastritis, HTN , Hypercholesterolemia, Seizures Surgical History: Hernia Repair - [facility] ALCOHOL DETOXIFICATION (11/15/14) DETOXIFICATION SERVICES FOR SUBSTANCE ABUSE TREATMENT (03/08/17) INDIV PSYCHOTHERAPY FOR SUBSTANCE ABUSE TREATMENT, SUPPORT (03/08/17) INDIV PSYCHOTHERAPY FOR SUBSTANCE ABUSE, COGNITIV BEHAVIORAL (03/08/17) INDIV PSYCHOTHERAPY FOR SUBSTANCE ABUSE, PSYCHOEDUCATION (03/08/17) INSERT INDWELLING CATH (06/08/13) TETANUS TOXOID ADMINIST (05/28/14) Family History: States: Unknown Family Hx - Social History Hx Tobacco Use: Yes Hx Alcohol Use: Yes Hx Substance Use: No - Immunization History Hx Tetanus Toxoid Vaccination: Yes Hx Influenza Vaccination: Yes Hx Pneumococcal Vaccination: Yes Review Of Systems Except As Marked, All Systems Reviewed And Found Negative. Constitutional: Negative for: Fever, Chills Eyes: Negative for: Vision Change ENT: Positive for: Nose Discharge, Nose Congestion Cardiovascular: Positive for: Chest Pain. Negative for: Palpitations, Edema, Light Headedness Respiratory: Positive for: Cough, Shortness of Breath. Negative for: Wheezing Gastrointestinal: Negative for: Nausea, Vomiting, Abdominal Pain, Diarrhea Genitourinary: Negative for: Incontinence Musculoskeletal: Positive for: Neck Pain Skin: Negative for: Rash Neurological: Positive for: Headache. Negative for: Weakness, Numbness, Altered Mental Status Physical Exam - Physical Exam Appears: Well, Non-toxic Skin: Normal Color, Warm, Dry Head: Normacephalic Eye(s): bilateral: PERRL Nose: No Flaring, No Discharge, Other (bluish discoloration of nasal tip) Oral Mucosa: Moist, No Drooling, Other (strong alcohol odor) Tongue: Normal Appearing Lips: Normal Appearing Throat: No Drooling Neck: Trachea Midline, No Midline Cervical Tenderness, No Step Off Deformity, Supple, Other (Right sided tenderness over trapezium muscle extend from occipital area down to upper back. No skin changes. no midline tendreness.) Cardiovascular: Rhythm Regular (tachy), No Friction Rub, No Murmur, No JVD Respiratory: No Decreased Breath Sounds, No Accessory Muscle Use, No Rales, No Rhonchi, No Stridor, No Wheezing Gastrointestinal/Abdominal: Soft, No Tenderness, No Distention, No Guarding Back: No CVA Tenderness Extremity: Normal ROM, No Pedal Edema, No Deformity Neurological/Psych: Oriented x3, Normal Speech, Normal Cognition, Normal Motor, Normal Sensation, Normal Reflexes ED Course And Treatment - Laboratory Results Result Diagrams: 12/11/17 17:59 12/11/17 17:59 ECG: Interpreted By Me, Viewed By Me ECG Rhythm: Sinus Tachycardia ECG Interpretation: No Changes From Prior Interpretation Of ECG: Sinus tachy@116/min, NAD, no acute T wave or ST-T changes. Compare to previous study from 2017, no new acute changes. O2 Sat by Pulse Oximetry: 98 Pulse Ox Interpretation: Normal - Radiology CXR: Interpreted by Me, Viewed By Me CXR Interpretation: Yes: COPD Progress Note: On re-evaluation, pt reports " feels better, no more shaking". Afebrile, hemodynamicaly stable. Non-toxic. NOt in resp. distress. Blood work review, no leukocytosis. Troponin, BNP - normal. case discussed with medicine and admission arranged to tele w/Dx: COPD exacerbation, alcohol withdrawal. Disposition - Disposition Disposition: HOSPITALIZED Disposition Time: 18:44 Condition: STABLE Forms: [facility] (British) - Clinical Impression Clinical Impression: Chest pain, Alcohol withdrawal, COPD exacerbation
[2017-12-11] MEDS ORDERED: Albuterol-Ipratrop 3 mg / 0.5 (3 ml) UD ONE ×2 (17:40→20:41)
[2017-12-11] MEDS ORDERED: Sodium Chloride 0.9% 1,000 ML ONE (17:41)
[2017-12-11 18:05] LABS: BASO # 0.1 K/uL (0.0-0.2); BASO % 2.3 % (0.0-2.0); EOS # 0.1 K/uL (0.0-0.7); HEMOGLOBIN 13.8 g/dL (12.0-18.0); LYMPH # 1.7 K/uL (1.0-4.3); LYMPH % 52.1 % (20.0-40.0); MEAN CELL VOLUME 95.1 fL (80.0-94.0); MEAN CORPUSCULAR HEMOGLOBIN 32.9 pg (27.0-31.0); MEAN CORPUSCULAR HGB CONC 34.6 g/dL (33.0-37.0); MEAN PLATELET VOLUME 7.1 fL (7.2-11.7); MONO # 0.3 K/uL (0.0-0.8); MONO % 9.2 % (0.0-10.0); NEUT # 1.1 K/uL (1.8-7.0); NEUT % 34.4 % (50.0-75.0); NRBC % 0.2 % (0.0-2.0); RBC 4.19 Mil/uL (4.40-5.90); RED CELL DISTRIBUTION WIDTH 16.3 % (11.5-14.5); WHITE BLOOD COUNT 3.3 K/uL (4.8-10.8)
[2017-12-11 18:07] LABS: SQUAMOUS EPITHIAL < 1 /hpf (0-5); URINE BILIRUBIN NEGATIVE (NEGATIVE); URINE BLOOD 1+ (NEGATIVE); URINE CLARITY Clear (Clear); URINE COLOR Straw (YELLOW); URINE GLUCOSE (UA) NORMAL (Normal); URINE LEUKOCYTE ESTERASE 2+ Leu/uL (Negative); URINE PROTEIN NEGATIVE (NEGATIVE); URINE UROBILINOGEN NORMAL mg/dL (0.2-1.0)
[2017-12-11 18:11] LABS: URINE BACTERIA RARE (<OCC)
[2017-12-11 18:12] LABS: PROTHROMBIN TIME 10.9 SECONDS (9.7-12.2)
[2017-12-11 18:21] LABS: ALB/GLOB RATIO 1.3 (1.0-2.1); ALBUMIN 4.4 g/dL (3.5-5.0); ALT/SGPT 67 U/L (21-72); AST/SGOT 103 U/L (17-59); BLOOD UREA NITROGEN 8 mg/dL (9-20); CALCIUM 9.5 mg/dl (8.6-10.4); GFR AFRICAN-AMERICAN > 60; GFR NON-AFRICAN AMERICAN > 60
[2017-12-11 18:22] LABS: BARBITURATES, UR NEGATIVE (NEGATIVE); BENZODIAZEPINES, UR NEGATIVE (NEGATIVE); OPIATES, UR NEGATIVE (NEGATIVE); PHENCYCLIDINE, UR NEGATIVE (NEGATIVE)
[2017-12-11 18:34] LABS: B-TYPE NATRIURETIC PEPTIDE 15.1 pg/mL (0-900)
[2017-12-11] MEDS ORDERED: Fluticasone-Salmeterol 250-50mcg Diskus INH SCH (20:15)
[2017-12-11] MEDS: MethylPREDNISolone 40 mg Vial IVPB SCH (20:20)
[2017-12-11] MEDS: Albuterol-Ipratrop 3 mg / 0.5 (3 ml) UD INH SCH (20:41)
[2017-12-11 22:31] VITALS: RESP 20
--- NOTE | 2017-12-11 23:39 | CP.PCM.HP ---
History of Present Illness - History of Present Illness History of Present Illness: CC:headache HPI: 62 yo white male h/o HTN, Emphysema, CAD, alcoholism, followed up in [facility] in [facility] for evaluation of occipital headache associated with neck pain and spasm " taking steroid shot for it" gradually developed since today AM. Pt also reports, " has chronic sinuses pressure, hard to breath , feel chest tightness, need my pump". Pt sts, non-complaint with his medication , does not take BP medication for few days. Had 2 beers this AM. Had similar headache and neck pain in past. At present time, pt appears comfortable, not in resp. distress, poor historian. Present on Admission - Present on Admission Any Indicators Present on Admission: Yes Past Patient History - Infectious Disease Hx of Infectious Diseases: None - Past Medical History & Family History Past Medical History?: Yes - Past Social History Smoking Status: Light Smoker < 10 Cigarettes Daily - CARDIAC Hx Congestive Heart Failure: Yes Hx Hypercholesterolemia: Yes Hx Hypertension: Yes - PULMONARY Hx Asthma: Yes Hx Bronchitis: Yes Hx Chronic Obstructive Pulmonary Disease (COPD): Yes Hx Emphysema: Yes - NEUROLOGICAL Hx Seizures: Yes - HEENT Hx HEENT Problems: No - ENDOCRINE/METABOLIC Hx Endocrine Disorders: Yes Hx Diabetes Mellitus Type 2: Yes - HEMATOLOGICAL/ONCOLOGICAL Hx Blood Disorders: No - INTEGUMENTARY Hx Dermatological Problems: No - MUSCULOSKELETAL/RHEUMATOLOGICAL Hx Arthritis: Yes - GASTROINTESTINAL Hx Gastritis: Yes - PSYCHIATRIC Hx Substance Use: No - SURGICAL HISTORY Hx Surgeries: Yes Hx Herniorrhaphy: Yes - ANESTHESIA Hx Anesthesia: No Hx Anesthesia Reactions: No Hx Malignant Hyperthermia: No Meds Home Medications: Home Medication List Medication Instructions Recorded Confirmed Type Fluticasone/Salmeterol 250/50 1 puff INH RQ12 puff 12/16/17 Rx [Advair Diskus 250/50] predniSONE [Prednisone] 10 mg PO DAILY #19 tab 12/16/17 Rx Allergies/Adverse Reactions: Allergies Allergy/AdvReac Type Severity Reaction Status Date / Time tomatoes AdvReac RASH Uncoded 12/11/17 17:15 Physical Exam - Constitutional Appears: Toxic, No Acute Distress - Head Exam Head Exam: ATRAUMATIC, NORMAL INSPECTION, NORMOCEPHALIC - Eye Exam Eye Exam: EOMI, Normal appearance, PERRL Pupil Exam: NORMAL ACCOMODATION, PERRL - Respiratory Exam Respiratory Exam: Decreased Breath Sounds, Rales, Rhonchi - Cardiovascular Exam Cardiovascular Exam: REGULAR RHYTHM - GI/Abdominal Exam GI & Abdominal Exam: Normal Bowel Sounds, Soft. absent: Tenderness - Rectal Exam Rectal Exam: Deferred Results - Vital Signs Recent Vital Signs: Last Vital Signs Temp 97.5 F L 12/11/17 22:30 Pulse 106 H 12/11/17 22:30 Resp 20 12/11/17 22:30 BP 109/75 12/11/17 22:30 Pulse Ox 95 12/11/17 22:30 - Labs Result Diagrams: 12/14/17 07:10 12/14/17 07:10 Labs: Laboratory Results - last 24 hr 12/11/17 12/11/17 12/11/17 17:59 17:59 17:59 WBC 3.3 L RBC 4.19 L Hgb 13.8 Hct 39.8 MCV 95.1 H MCH 32.9 H MCHC 34.6 RDW 16.3 H Plt Count 144 MPV 7.1 L Neut % (Auto) 34.4 L Lymph % (Auto) 52.1 H [place] % (Auto) 9.2 Eos % (Auto) 2.0 Baso % (Auto) 2.3 H Neut # (Auto) 1.1 L Lymph # (Auto) 1.7 [place] # (Auto) 0.3 Eos # (Auto) 0.1 Baso # (Auto) 0.1 PT 10.9 INR 1.0 APTT 29 Sodium 145 Potassium 3.6 Chloride 104 Carbon Dioxide 22 Anion Gap 23 H BUN 8 L Creatinine 0.6 L Est GFR ( Amer) > 60 Est GFR (Non-Af Amer) > 60 POC Glucose (mg/dL) Random Glucose 96 Calcium 9.5 Magnesium 1.9 Total Bilirubin 0.9 AST 103 H D ALT 67 Alkaline Phosphatase 58 Troponin I 0.0170 NT-Pro-B Natriuret Pep 15.1 Total Protein 7.7 Albumin 4.4 Globulin 3.4 Albumin/Globulin Ratio 1.3 Urine Color Urine Clarity Urine pH Ur Specific [place] Urine Protein Urine Glucose (UA) Urine Ketones Urine Blood Urine Nitrate Urine Bilirubin Urine Urobilinogen Ur Leukocyte Esterase Urine WBC (Auto) Urine RBC (Auto) Ur Squamous Epith Cells Urine Bacteria Urine Opiates Screen Urine Methadone Screen Ur Barbiturates Screen Ur Phencyclidine Scrn Ur Amphetamines Screen U Benzodiazepines Scrn U Oth Cocaine Metabols U Cannabinoids Screen Alcohol, Quantitative 361 H 12/11/17 12/11/17 12/11/17 17:59 17:59 19:21 WBC RBC Hgb Hct MCV MCH MCHC RDW Plt Count MPV Neut % (Auto) Lymph % (Auto) [place] % (Auto) Eos % (Auto) Baso % (Auto) Neut # (Auto) Lymph # (Auto) [place] # (Auto) Eos # (Auto) Baso # (Auto) PT INR APTT Sodium Potassium Chloride Carbon Dioxide Anion Gap BUN Creatinine Est GFR ( Amer) Est GFR (Non-Af Amer) POC Glucose (mg/dL) 88 Random Glucose Calcium Magnesium Total Bilirubin AST ALT Alkaline Phosphatase Troponin I NT-Pro-B Natriuret Pep Total Protein Albumin Globulin Albumin/Globulin Ratio Urine Color Straw Urine Clarity Clear Urine pH 6.0 Ur Specific [place] 1.003 Urine Protein Negative Urine Glucose (UA) Normal Urine Ketones Trace Urine Blood 1+ H Urine Nitrate Negative Urine Bilirubin Negative Urine Urobilinogen Normal Ur Leukocyte Esterase 2+ H Urine WBC (Auto) 4 Urine RBC (Auto) 6 H Ur Squamous Epith Cells < 1 Urine Bacteria Rare Urine Opiates Screen Negative Urine Methadone Screen Negative Ur Barbiturates Screen Negative Ur Phencyclidine Scrn Negative Ur Amphetamines Screen Negative U Benzodiazepines Scrn Negative U Oth Cocaine Metabols Negative U Cannabinoids Screen Negative Alcohol, Quantitative Assessment & Plan (1) Alcohol abuse with intoxication Status: Acute (2) Alcohol withdrawal Status: Acute (3) Altered mental state Status: Acute (4) COPD (chronic obstructive pulmonary disease) Status: Acute (5) Headache Status: Acute (6) Hypertension Status: Chronic
[2017-12-12] MEDS: Albuterol-Ipratrop 3 mg / 0.5 (3 ml) UD INH SCH ×6 (00:05→19:36)
[2017-12-12] MEDS: MethylPREDNISolone 40 mg Vial IVPB SCH ×3 (04:16→19:48)
[2017-12-12] MEDS: Fluticasone-Salmeterol 250-50mcg Diskus INH SCH ×2 (08:57→19:36)
--- NOTE | 2017-12-12 09:10 | RAD ---
PROCEDURE: CHEST RADIOGRAPH, 1 VIEW HISTORY: SOB COMPARISON: Portable chest 05/13/2017 FINDINGS: LUNGS: Inspiratory volume appears somewhat diminished with limited airspace disease question in the right base. None is seen the left. PLEURA: No pneumothorax or pleural fluid seen. CARDIOVASCULAR: Normal. OSSEOUS STRUCTURES: No significant abnormalities. VISUALIZED UPPER ABDOMEN: Normal. OTHER FINDINGS: None. IMPRESSION: Questionable airspace disease developing at right base. No definite acute cardiovascular changes taking differences in technique and positioning into account.
[2017-12-12] MEDS: guaiFENesin 600 mg ER Tab PO SCH ×2 (10:23→18:21)
[2017-12-12] MEDS: Pantoprazole 40 mg EC Tab PO SCH (10:23)
[2017-12-12] MEDS: NIFEdipine 60 mg ER Tab PO SCH (10:24)
[2017-12-12] MEDS: Enoxaparin 40 mg Syringe SC SCH (10:24)
[2017-12-12 17:14] LABS: ARTERIAL BLOOD GAS HCO3 26.6 mmol/L (21-28); ARTERIAL BLOOD GAS O2 SAT 98.8 % (95-98); ARTERIAL BLOOD GAS PCO2 29 mm/Hg (35-45); ARTERIAL BLOOD GAS PH 7.53 (7.35-7.45); ARTERIAL BLOOD GAS PO2 82 mm/Hg (80-100); ARTERIAL BLOOD GAS TCO2 25.1 mmol/L (22-28)
--- NOTE | 2017-12-12 23:44 | CP.PCM.PN ---
Subjective - Date & Time of Evaluation Date of Evaluation: 12/12/17 Time of Evaluation: 19:00 - Subjective Subjective: Pt seen and examined at bedside, denies any fever, chills, chest pain, nausea, vomiting Objective - Vital Signs/Intake and Output Vital Signs (last 24 hours): Temp Pulse Resp BP Pulse Ox 97.7 F 91 H 20 148/88 95 12/12/17 08:27 12/12/17 08:27 12/12/17 08:27 12/12/17 08:27 12/12/17 08:27 - Medications Medications: Current Medications Albuterol/Ipratropium (Duoneb 3 Mg/0.5 Mg (3 Ml) Ud) 3 ml INH RQ4 [facility] Last Admin: 12/12/17 19:36 Dose: Not Given Chlordiazepoxide (Librium) 25 mg PO Q4H PRN PRN Reason: Alcohol Withdrawal Last Admin: 12/12/17 21:36 Dose: 25 mg Enoxaparin Sodium (Lovenox) 40 mg SC DAILY [facility] Last Admin: 12/12/17 10:24 Dose: 40 mg Guaifenesin (Mucinex La) 600 mg PO BID [facility] Last Admin: 12/12/17 18:21 Dose: 600 mg Lisinopril (Zestril) 20 mg PO DAILY [facility] Last Admin: 12/12/17 10:23 Dose: 20 mg Methylprednisolone (Solu-Medrol) 60 mg IVPB Q8H [facility] Last Admin: 12/12/17 19:48 Dose: 60 mg Nifedipine (Procardia Xl) 60 mg PO DAILY [facility] Last Admin: 12/12/17 10:24 Dose: 60 mg Pantoprazole Sodium (Protonix Ec Tab) 40 mg PO DAILY [facility] Last Admin: 12/12/17 10:23 Dose: 40 mg Fluticasone/Salmeterol (Advair Diskus 250/50) 1 puff INH RQ12 [facility] Last Admin: 12/12/17 19:36 Dose: Not Given Thiamine HCl (Vitamin B1 Tab) 100 mg PO DAILY [facility] Last Admin: 12/12/17 10:23 Dose: 100 mg - Labs Labs: 12/11/17 17:59 12/11/17 17:59 PT 10.9 SECONDS (9.7-12.2) 12/11/17 17:59 INR 1.0 12/11/17 17:59 APTT 29 SECONDS (21-34) 12/11/17 17:59
[2017-12-13] MEDS: Albuterol-Ipratrop 3 mg / 0.5 (3 ml) UD INH SCH ×6 (00:55→20:04)
[2017-12-13] MEDS: MethylPREDNISolone 40 mg Vial IVPB SCH ×3 (03:18→21:37)
[2017-12-13] MEDS: Fluticasone-Salmeterol 250-50mcg Diskus INH SCH ×3 (09:44→20:05)
[2017-12-13] MEDS: NIFEdipine 60 mg ER Tab PO SCH (09:45)
[2017-12-13] MEDS: Enoxaparin 40 mg Syringe SC SCH (09:45)
[2017-12-13] MEDS: Pantoprazole 40 mg EC Tab PO SCH (09:45)
[2017-12-13] MEDS: guaiFENesin 600 mg ER Tab PO SCH ×2 (09:53→18:23)
--- NOTE | 2017-12-13 12:17 | CARD ---
APPROVED REPORT EKG Measurement Heart [id number] ND [id number] <Conclusion> Sinus tachycardia Otherwise normal ECG
[2017-12-13] MEDS ORDERED: MethylPREDNISolone 40 mg Vial IVPB SCH (14:00)
--- NOTE | 2017-12-13 14:21 | RAD ---
HISTORY: copd / chf COMPARISON: Chest radiograph dated 12/11/2017. TECHNIQUE: Chest PA and lateral FINDINGS: LUNGS: No active pulmonary disease. PLEURA: No significant pleural effusion identified. No pneumothorax apparent. CARDIOVASCULAR: Atherosclerotic aortic calcifications. Cardiomediastinal silhouette stably prominent. OSSEOUS STRUCTURES: Unchanged. VISUALIZED UPPER ABDOMEN: Normal. OTHER FINDINGS: None. IMPRESSION: No active disease.
--- NOTE | 2017-12-13 22:51 | CON ---
DATE: HISTORY OF PRESENT ILLNESS: This is a 62-year-old male with a history of COPD, emphysema, hypertension, coronary artery disease, alcoholism, for which he was followed up in the rehab hospital in the [place]. He has been a longtime smoker. Now, he was admitted with headache, mostly on the right side. He has a history of chronic paranasal sinus problem and also complains of shortness of breath and feeling tight in the chest, mostly when walking. His symptoms get easier after using bronchodilator inhalation pump as he calls it. The patient has had similar episodes of headache, head and neck discomfort in the past, and has safety tremors for long time. There is no history of fever or chills. He states he did not have any seizures. There is no vomiting and no hemoptysis. SOCIAL HISTORY: Reviewed. He is a long time smoker. Smokes less than 10 cigarettes a day. Drinks beer frequently. ALLERGIES: THERE HAS BEEN NO REPORTED ALLERGY TO MEDICINE. PAST MEDICAL HISTORY: Congestive heart failure, hypercholesterolemia, hypertension, asthma, bronchitis, COPD, emphysema, history of seizures, sinusitis, and mild diabetes. FAMILY HISTORY: Family history of substance abuse. REVIEW OF SYSTEMS: As reported above. Cardiorespiratory: REGISTERED NURSE HH CASE MANAGER. Gastrointestinal: No vomiting. Renal: Nothing significant. Endocrine: Diabetes mellitus. No blood disorders or skin disorders reported. Gives history of arthritis. PHYSICAL EXAMINATION: GENERAL: He is alert, oriented, generalized tremors mostly in limbs. VITAL SIGNS: He is afebrile with blood pressure 128/86, pulse 95, respirations 20, hemoglobin oxygen saturation of 94% on room air. HEART: Regular with no gallop rhythm. LUNGS: Diminished breath sounds over the lung bases. Occasional rhonchi. ABDOMEN: Soft. EXTREMITIES: Legs, no edema. Deep tendon reflexes are unremarkable. LABORATORY DATA: Lab shows white count 3300, hemoglobin 13.8, platelet count 144,000. INR is 1. His sodium 145, potassium 3.6, chloride 104, BUN 8, creatinine 0.6. His ABG on room air show pH of 7.53, pCO2 of 29, pO2 of 82, and hemoglobin oxygen saturation of 99%, bicarb 27. Chest x-ray shows poor inspiratory, relatively supine film with bilateral basal heaves, more prominent on the right side suggesting atelectasis over the bases. IMPRESSION: 1. Respiratory insufficiency. 2. Chronic obstructive pulmonary disease exacerbation. 3. Hypertensive cardiovascular disease. 4. Coronary artery disease. 5. Diabetes mellitus. 6. Arthritis. 7. Tremor disorder. 8. Seizure disorder. PLAN: He will continue current medications including bronchodilators, vasodilators, DVT prophylaxis, steroids. Planning to do further testing as necessary. We will repeat chest x-ray. Pranay Matos MD
--- NOTE | 2017-12-13 23:25 | CP.PCM.PN ---
Subjective - Date & Time of Evaluation Date of Evaluation: 12/14/17 Time of Evaluation: 18:40 - Subjective Subjective: Pt is feeling better, seen and examined by me today, improving Objective - Vital Signs/Intake and Output Vital Signs (last 24 hours): Temp Pulse Resp BP Pulse Ox 97.6 F 89 20 144/89 97 12/13/17 15:15 12/13/17 15:15 12/13/17 15:15 12/13/17 15:15 12/13/17 15:15 - Medications Medications: Current Medications Albuterol/Ipratropium (Duoneb 3 Mg/0.5 Mg (3 Ml) Ud) 3 ml INH RQ4 [facility] Last Admin: 12/13/17 20:04 Dose: 3 ml Chlordiazepoxide (Librium) 25 mg PO Q4H PRN PRN Reason: Alcohol Withdrawal Last Admin: 12/13/17 18:22 Dose: 25 mg Enoxaparin Sodium (Lovenox) 40 mg SC DAILY [facility] Last Admin: 12/13/17 09:45 Dose: 40 mg Guaifenesin (Mucinex La) 600 mg PO BID [facility] Last Admin: 12/13/17 18:23 Dose: 600 mg Lisinopril (Zestril) 20 mg PO DAILY [facility] Last Admin: 12/13/17 09:45 Dose: 20 mg Methylprednisolone (Solu-Medrol) 20 mg IVPB Q8 [facility] Last Admin: 12/13/17 21:37 Dose: 20 mg Nifedipine (Procardia Xl) 60 mg PO DAILY [facility] Last Admin: 12/13/17 09:45 Dose: 60 mg Pantoprazole Sodium (Protonix Ec Tab) 40 mg PO DAILY [facility] Last Admin: 12/13/17 09:45 Dose: 40 mg Fluticasone/Salmeterol (Advair Diskus 250/50) 1 puff INH RQ12 [facility] Last Admin: 12/13/17 20:05 Dose: 1 puff Thiamine HCl (Vitamin B1 Tab) 100 mg PO DAILY [facility] Last Admin: 12/13/17 09:45 Dose: 100 mg - Labs Labs: 12/11/17 17:59 12/11/17 17:59 PT 10.9 SECONDS (9.7-12.2) 12/11/17 17:59 INR 1.0 12/11/17 17:59 APTT 29 SECONDS (21-34) 12/11/17 17:59 - Constitutional Appears: No Acute Distress - Head Exam Head Exam: ATRAUMATIC, NORMAL INSPECTION, NORMOCEPHALIC - Eye Exam Eye Exam: EOMI, Normal appearance, PERRL Pupil Exam: NORMAL ACCOMODATION, PERRL - Respiratory Exam Respiratory Exam: Clear to Ausculation Bilateral, NORMAL BREATHING PATTERN - Cardiovascular Exam Cardiovascular Exam: REGULAR RHYTHM, +S1, +S2. absent: Murmur - GI/Abdominal Exam GI & Abdominal Exam: Soft, Normal Bowel Sounds. absent: Tenderness Assessment and Plan (1) Alcohol abuse Status: Acute (2) Alcohol intoxication Status: Acute (3) COPD (chronic obstructive pulmonary disease) Status: Acute (4) Hypertension Status: Chronic
[2017-12-14] MEDS: Albuterol-Ipratrop 3 mg / 0.5 (3 ml) UD INH SCH ×6 (01:02→19:39)
[2017-12-14] MEDS: MethylPREDNISolone 40 mg Vial IVPB SCH ×3 (06:31→21:54)
[2017-12-14 07:18] LABS: HEMOGLOBIN 12.9 g/dL (12.0-18.0); MEAN CELL VOLUME 95.8 fL (80.0-94.0); MEAN CORPUSCULAR HEMOGLOBIN 33.2 pg (27.0-31.0); MEAN CORPUSCULAR HGB CONC 34.7 g/dL (33.0-37.0); MEAN PLATELET VOLUME 8.3 fL (7.2-11.7); RBC 3.9 Mil/uL (4.40-5.90); RED CELL DISTRIBUTION WIDTH 16.2 % (11.5-14.5); WHITE BLOOD COUNT 3.5 K/uL (4.8-10.8)
[2017-12-14 07:46] LABS: BLOOD UREA NITROGEN 14 mg/dL (9-20); CALCIUM 9.2 mg/dl (8.6-10.4); GFR AFRICAN-AMERICAN > 60; GFR NON-AFRICAN AMERICAN > 60
[2017-12-14] MEDS: Fluticasone-Salmeterol 250-50mcg Diskus INH SCH ×2 (08:29→19:39)
[2017-12-14] MEDS: Pantoprazole 40 mg EC Tab PO SCH (10:48)
[2017-12-14] MEDS: guaiFENesin 600 mg ER Tab PO SCH ×2 (10:48→17:44)
[2017-12-14] MEDS: NIFEdipine 60 mg ER Tab PO SCH (10:48)
[2017-12-14] MEDS: Enoxaparin 40 mg Syringe SC SCH (10:48)
[2017-12-14] MEDS ORDERED: Potassium Chloride 20 mEq/15 ml LIQ UD PO STA (11:37)
[2017-12-14] MEDS ORDERED: Hemorrohoidal Ointment (2 oz) TOP PRN (13:41)
--- NOTE | 2017-12-14 23:59 | CP.PCM.PN ---
Subjective - Date & Time of Evaluation Date of Evaluation: 12/14/17 Time of Evaluation: 18:00 - Subjective Subjective: Patient admitted with COPD, alcohol withdrawals, seen and examined. Alert and orientedx3, no sob or wheezing noted. Ambulating well. on medical management Objective - Vital Signs/Intake and Output Vital Signs (last 24 hours): Temp Pulse Resp BP Pulse Ox 97.9 F 91 H 20 140/92 H 96 12/14/17 16:00 12/14/17 17:30 12/14/17 16:00 12/14/17 16:00 12/14/17 16:00 - Medications Medications: Current Medications Albuterol/Ipratropium (Duoneb 3 Mg/0.5 Mg (3 Ml) Ud) 3 ml INH RQ4 [facility] Last Admin: 12/14/17 19:39 Dose: 3 ml Chlordiazepoxide (Librium) 25 mg PO Q4H PRN PRN Reason: Alcohol Withdrawal Last Admin: 12/14/17 17:44 Dose: 25 mg Enoxaparin Sodium (Lovenox) 40 mg SC DAILY [facility] Last Admin: 12/14/17 10:48 Dose: 40 mg Guaifenesin (Mucinex La) 600 mg PO BID [facility] Last Admin: 12/14/17 17:44 Dose: 600 mg Ceftriaxone Sodium (Rocephin 1 Gram Ivpb) 1 gm in 100 mls @ 100 mls/hr IVPB DAILY [facility] PRN Reason: Protocol Lisinopril (Zestril) 20 mg PO DAILY [facility] Last Admin: 12/14/17 10:48 Dose: 20 mg Methylprednisolone (Solu-Medrol) 20 mg IVPB Q8 [facility] Last Admin: 12/14/17 21:54 Dose: 20 mg Multi-Ingredient Ointment (Prep-Hem) 1 ea TOP QID PRN PRN Reason: Hemorrhoids Nifedipine (Procardia Xl) 60 mg PO DAILY [facility] Last Admin: 12/14/17 10:48 Dose: 60 mg Pantoprazole Sodium (Protonix Ec Tab) 40 mg PO DAILY [facility] Last Admin: 12/14/17 10:48 Dose: 40 mg Rosuvastatin Calcium (Crestor) 10 mg PO HS [facility] Last Admin: 12/14/17 21:57 Dose: 10 mg Fluticasone/Salmeterol (Advair Diskus 250/50) 1 puff INH RQ12 [facility] Last Admin: 12/14/17 19:39 Dose: 1 puff Thiamine HCl (Vitamin B1 Tab) 100 mg PO DAILY [facility] Last Admin: 12/14/17 10:48 Dose: 100 mg - Labs Labs: 12/14/17 07:10 12/14/17 07:10 PT 10.9 SECONDS (9.7-12.2) 12/11/17 17:59 INR 1.0 12/11/17 17:59 APTT 29 SECONDS (21-34) 12/11/17 17:59 - Constitutional Appears: No Acute Distress - Head Exam Head Exam: ATRAUMATIC, NORMAL INSPECTION, NORMOCEPHALIC - Eye Exam Eye Exam: EOMI, Normal appearance, PERRL Pupil Exam: NORMAL ACCOMODATION, PERRL - Respiratory Exam Respiratory Exam: Decreased Breath Sounds, Rales - Cardiovascular Exam Cardiovascular Exam: REGULAR RHYTHM, +S1, +S2. absent: Murmur - GI/Abdominal Exam GI & Abdominal Exam: Soft, Normal Bowel Sounds. absent: Tenderness Assessment and Plan (1) Alcohol abuse with intoxication Status: Acute (2) Alcohol withdrawal Status: Acute (3) COPD (chronic obstructive pulmonary disease) Status: Acute (4) Hypertension Status: Chronic
[2017-12-15] MEDS: Albuterol-Ipratrop 3 mg / 0.5 (3 ml) UD INH SCH ×7 (00:06→23:50)
[2017-12-15] MEDS: MethylPREDNISolone 40 mg Vial IVPB SCH (06:24)
[2017-12-15] MEDS: guaiFENesin 600 mg ER Tab PO SCH ×2 (09:45→17:45)
[2017-12-15] MEDS: Pantoprazole 40 mg EC Tab PO SCH (09:46)
[2017-12-15] MEDS: Enoxaparin 40 mg Syringe SC SCH (09:46)
[2017-12-15] MEDS: NIFEdipine 60 mg ER Tab PO SCH (09:46)
[2017-12-15] MEDS: cefTRIAXone 1 gm 1 GM/100 ML BAG IVPB SCH ×2 (10:20→11:30)
[2017-12-15] MEDS: Fluticasone-Salmeterol 250-50mcg Diskus INH SCH ×2 (11:17→20:05)
[2017-12-15] MEDS: cefTRIAXone IV 1 gm in Dextros 50 ML IVPB SCH (14:14)
[2017-12-16] MEDS: Albuterol-Ipratrop 3 mg / 0.5 (3 ml) UD INH SCH ×3 (03:17→10:59)
--- NOTE | 2017-12-16 07:18 | PN ---
DATE: 12/15/2017 SUBJECTIVE: The patient is alert, oriented. He is not in acute distress. His dyspnea is improving. Chest discomfort is decreasing. PHYSICAL EXAMINATION: VITAL SIGNS: He is afebrile. Blood pressure 130/90, pulse 96, respirations 20. Hemoglobin-oxygen saturation 95% on room air. HEART: Regular. There is no gallop rhythm. LUNGS: Diminished breath sounds over lung bases. Rhonchi decreased. ABDOMEN: Soft. EXTREMITIES: Legs, no edema. LABORATORY DATA: His white count is 3500, hemoglobin 12.9, and platelet count is 121,000. His ABGs on room air is showing pH of 7.53, pCO2 of 29, pO2 of 82. Hemoglobin-oxygen saturation of 99%, and bicarbonate of 27. His serum sodium is 140, potassium 3.5, chloride 98, BUN 14, creatinine 0.6. His chest x-ray shows hyperinflation with no pleural effusion, no pneumothorax, and there is no active lung disease, chronic changes are seen. IMPRESSION: Respiratory insufficiency, exacerbation of chronic obstructive pulmonary disease, hypertension, seizure disorder, excess alcohol use, history of arthritis. PLAN: To continue with current medications including bronchodilators, vasodilators, DVT prophylaxis. Add thiamine. We will taper down the steroids. Pranay Matos MD
--- NOTE | 2017-12-16 08:28 | CP.PCM.PN ---
Subjective - Date & Time of Evaluation Date of Evaluation: 12/15/17 Time of Evaluation: 18:00 - Subjective Subjective: Pt seen and examined today, afebrile, improving clinically Objective - Vital Signs/Intake and Output Vital Signs (last 24 hours): Temp Pulse Resp BP Pulse Ox 97.6 F 83 20 112/76 96 12/15/17 23:00 12/16/17 01:26 12/15/17 23:00 12/15/17 23:00 12/15/17 23:00 Intake and Output: 12/16/17 12/16/17 06:59 18:59 Intake Total 360 Output Total 300 Balance 60 - Medications Medications: Current Medications Albuterol/Ipratropium (Duoneb 3 Mg/0.5 Mg (3 Ml) Ud) 3 ml INH RQ4 [facility] Last Admin: 12/16/17 07:22 Dose: Not Given Chlordiazepoxide (Librium) 25 mg PO Q4H PRN PRN Reason: Alcohol Withdrawal Last Admin: 12/15/17 17:45 Dose: 25 mg Enoxaparin Sodium (Lovenox) 40 mg SC DAILY [facility] Last Admin: 12/15/17 09:46 Dose: 40 mg Guaifenesin (Mucinex La) 600 mg PO BID [facility] Last Admin: 12/15/17 17:45 Dose: 600 mg Ceftriaxone Sodium (Rocephin Iv 1 Gm Duplex) 50 mls @ 100 mls/hr IVPB Q24H [facility] PRN Reason: Protocol Last Admin: 12/15/17 14:14 Dose: 100 mls/hr Lisinopril (Zestril) 20 mg PO DAILY [facility] Last Admin: 12/15/17 09:45 Dose: 20 mg Multi-Ingredient Ointment (Prep-Hem) 1 ea TOP QID PRN PRN Reason: Hemorrhoids Last Admin: 12/15/17 08:25 Dose: 1 applic Nifedipine (Procardia Xl) 60 mg PO DAILY [facility] Last Admin: 12/15/17 09:46 Dose: 60 mg Pantoprazole Sodium (Protonix Ec Tab) 40 mg PO DAILY [facility] Last Admin: 12/15/17 09:46 Dose: 40 mg Prednisone (Prednisone Tab) 10 mg PO Q12 [facility] Last Admin: 12/15/17 22:51 Dose: 10 mg Rosuvastatin Calcium (Crestor) 10 mg PO HS [facility] Last Admin: 12/15/17 21:42 Dose: 10 mg Fluticasone/Salmeterol (Advair Diskus 250/50) 1 puff INH RQ12 [facility] Last Admin: 12/15/17 20:05 Dose: 1 puff Thiamine HCl (Vitamin B1 Tab) 100 mg PO DAILY [facility] Last Admin: 12/15/17 09:45 Dose: 100 mg - Labs Labs: 12/14/17 07:10 12/14/17 07:10 PT 10.9 SECONDS (9.7-12.2) 12/11/17 17:59 INR 1.0 12/11/17 17:59 APTT 29 SECONDS (21-34) 12/11/17 17:59 Assessment and Plan (1) Alcohol abuse with intoxication Status: Acute (2) Alcohol withdrawal Status: Acute (3) COPD (chronic obstructive pulmonary disease) Assessment & Plan: Patient admitted with COPD, alcohol withdrawals, seen and examined. Alert and orientedx3, no sob or wheezing noted. Ambulating well. on medical management Status: Acute (4) Hypertension Status: Chronic
[2017-12-16 08:29] VITALS: TEMP 97.5
[2017-12-16 08:34] VITALS: BP 139/91; PULSE 74; O2SAT 97
[2017-12-16] MEDS: NIFEdipine 60 mg ER Tab PO SCH (09:00)
[2017-12-16] MEDS: guaiFENesin 600 mg ER Tab PO SCH (09:00)
[2017-12-16] MEDS: Pantoprazole 40 mg EC Tab PO SCH (10:00)
[2017-12-16] MEDS: Enoxaparin 40 mg Syringe SC SCH (10:00)
[2017-12-16] MEDS: Fluticasone-Salmeterol 250-50mcg Diskus INH SCH (10:09)
--- NOTE | 2017-12-16 13:36 | PN ---
DATE: 12/16/2017 LOCATION: [address]. SUBJECTIVE: This is a 62-year-old male seen and examined initially for GI consultation on 12/15/2017, reexamined again today, without reported significant clinical changes, with intermittent period of mild shortness of breath and nausea. No reported active bleeding this morning. The patient admitted decrease in dyspnea as well as less nausea and dyspepsia. The entire chart is reviewed including, but not limited to. the most recent lab and radiology study results, current and previous medication list, current and previous medical events. Today's lab results are still pending; however, the patient's most recent lab results showed normal hemoglobin, and hematocrit, with normal liver function test. PHYSICAL EXAMINATION GENERAL: A 62-year-old male, awake, alert, and oriented. VITAL SIGNS: Afebrile with pulse of 72, respiratory rate of 20 to 22, blood pressure of 134/82. HEENT: Showed pale, dry, mucous membranes. Nonicteric sclerae. LUNGS: Few scattered crepitation. Decreased air entry at bases. HEART: Positive S1 and S2. ABDOMEN: Soft, with slight generalized tenderness. No mass or organomegaly. No rebound tenderness or guarding. RECTAL EXAMINATION: Patient refused. EXTREMITIES: Without significant edema. NEUROLOGIC: No reported new neurological deficits, sensory or motor. IMPRESSION: 1. Re-exacerbation of peptic ulcer disease. 2. Known history of chronic obstructive pulmonary disease, hypertension, alcoholism, coronary artery disease. 3. Early stage of delirium tremens. The patient still has some tremor in the upper extremities with mild nausea during my physical examination. No reported complaint of headache this morning. SUGGESTIONS: 1. Agree with your plan. 2. Follow up liver function tests. 3. Ammonia level. 4. Cancer markers including CEA. 5. Further recommendations to follow. Nyla Costello MD
[2017-12-16] MEDS: cefTRIAXone IV 1 gm in Dextros 50 ML IVPB SCH ×2 (14:00→14:05)
--- NOTE | 2017-12-16 17:54 | CP.PCM.PN ---
Subjective - Date & Time of Evaluation Date of Evaluation: 12/16/17 Time of Evaluation: 11:00 - Subjective Subjective: Alert, awake, ambulatory. No sob or chest pains, NAD. Objective - Vital Signs/Intake and Output Vital Signs (last 24 hours): Temp Pulse Resp BP Pulse Ox 97.5 F L 74 20 139/91 H 97 12/16/17 08:27 12/16/17 08:27 12/16/17 08:27 12/16/17 08:27 12/16/17 08:27 Intake and Output: 12/16/17 12/16/17 06:59 18:59 Intake Total 360 Output Total 300 Balance 60 - Labs Labs: 12/14/17 07:10 12/14/17 07:10 PT 10.9 SECONDS (9.7-12.2) 12/11/17 17:59 INR 1.0 12/11/17 17:59 APTT 29 SECONDS (21-34) 12/11/17 17:59 Assessment and Plan - Assessment and Plan (Free Text) Assessment: Patient admitted with COPD, alcohol withdrawals, seen and examined. Alert and orientedx3, no sob or wheezing noted. Ambulating well. Discussed withDR Arias , plan to discharge home on tapering prednisone. Advised to follow up with PMD in 1 week.
--- NOTE | 2017-12-16 18:04 | PN ---
DATE: SUBJECTIVE: The patient is alert and oriented. He is not in acute distress. PHYSICAL EXAMINATION VITAL SIGNS: He is afebrile with blood pressure of 138/90, pulse 74, respirations 20, hemoglobin-oxygen saturation of 97% on room air. HEART: Regular with no gallop rhythm. LUNGS: Diminished breath sounds over the lung bases. Rhonchi has improved. ABDOMEN: Soft. EXTREMITIES: Legs with no edema. LABORATORY DATA: His white count is 3500, hemoglobin 10.9, platelet count is 121,000. Serum sodium 140, potassium 3.5, chloride 98, BUN 14, creatinine 0.6. Ammonia level of less than 9. Chest x-ray shows hyperinflation with hyperaeration and active infiltrates. IMPRESSION: 1. Respiratory insufficiency. 2. Hypertensive cardiovascular disease. 3. Exacerbation of chronic obstructive pulmonary disease. 4. Emphysema. 5. History of excess alcohol use. 6. History of seizures. 7. Tremulousness. PLAN: To continue with current management and follow up with PMD. Pranay Matos MD
--- NOTE | 2017-12-17 05:14 | CP.PCM.DIS ---
Provider - Provider Date of Admission: 12/11/17 18:46 Attending physician: Rakesh Arias MD Time Spent in preparation of Discharge (in minutes): 45 Hospital Course - Lab Results Lab Results: Micro Results 12/14/17 12:26 Sputum Gram Stain - Final 12/14/17 12:26 Sputum Sputum Culture - Final NORMAL ORAL JESUS Most Recent Lab Values WBC 3.5 K/uL (4.8-10.8) L 12/14/17 07:10 RBC 3.90 Mil/uL (4.40-5.90) L 12/14/17 07:10 Hgb 12.9 g/dL (12.0-18.0) 12/14/17 07:10 Hct 37.3 % (35.0-51.0) 12/14/17 07:10 MCV 95.8 fL (80.0-94.0) H 12/14/17 07:10 MCH 33.2 pg (27.0-31.0) H 12/14/17 07:10 MCHC 34.7 g/dL (33.0-37.0) 12/14/17 07:10 RDW 16.2 % (11.5-14.5) H 12/14/17 07:10 Plt Count 121 K/uL (130-400) L D 12/14/17 07:10 MPV 8.3 fL (7.2-11.7) 12/14/17 07:10 Neut % (Auto) 34.4 % (50.0-75.0) L 12/11/17 17:59 Lymph % (Auto) 52.1 % (20.0-40.0) H 12/11/17 17:59 Traill % (Auto) 9.2 % (0.0-10.0) 12/11/17 17:59 Eos % (Auto) 2.0 % (0.0-4.0) 12/11/17 17:59 Baso % (Auto) 2.3 % (0.0-2.0) H 12/11/17 17:59 Neut # (Auto) 1.1 K/uL (1.8-7.0) L 12/11/17 17:59 Lymph # (Auto) 1.7 K/uL (1.0-4.3) 12/11/17 17:59 Traill # (Auto) 0.3 K/uL (0.0-0.8) 12/11/17 17:59 Eos # (Auto) 0.1 K/uL (0.0-0.7) 12/11/17 17:59 Baso # (Auto) 0.1 K/uL (0.0-0.2) 12/11/17 17:59 Differential Comment 12/14/17 07:10 PT 10.9 SECONDS (9.7-12.2) 12/11/17 17:59 INR 1.0 12/11/17 17:59 APTT 29 SECONDS (21-34) 12/11/17 17:59 Puncture Site Lba 12/12/17 17:09 pCO2 29 mm/Hg (35-45) L 12/12/17 17:09 pO2 82 mm/Hg (80-100) 12/12/17 17:09 HCO3 26.6 mmol/L (21-28) 12/12/17 17:09 ABG pH 7.53 (7.35-7.45) H 12/12/17 17:09 ABG Total CO2 25.1 mmol/L (22-28) 12/12/17 17:09 ABG O2 Saturation 98.8 % (95-98) H 12/12/17 17:09 ABG Base Excess 2.2 mmol/L (-2.0-3.0) 12/12/17 17:09 ABG Hemoglobin 12.0 g/dL (11.7-17.4) 12/12/17 17:09 ABG Carboxyhemoglobin 2.0 % (0.5-1.5) H 12/12/17 17:09 POC ABG HHb (Measured) 1.2 % (0.0-5.0) 12/12/17 17:09 ABG Methemoglobin 1.6 % (0.0-3.0) 12/12/17 17:09 Elie Test Na 12/12/17 17:09 A-a O2 Difference 31.0 mm/Hg 12/12/17 17:09 Respiratory Index 0.4 12/12/17 17:09 Hgb O2 Saturation 95.3 % (95.0-98.0) 12/12/17 17:09 Liter Flow 0 12/12/17 17:09 FiO2 21.0 % 12/12/17 17:09 Sodium 140 mmol/L (132-148) 12/14/17 07:10 Potassium 3.5 mmol/L (3.6-5.2) L 12/14/17 07:10 Chloride 98 mmol/L (98-107) 12/14/17 07:10 Carbon Dioxide 29 mmol/L (22-30) 12/14/17 07:10 Anion Gap 17 (10-20) 12/14/17 07:10 BUN 14 mg/dL (9-20) 12/14/17 07:10 Creatinine 0.6 mg/dL (0.8-1.5) L 12/14/17 07:10 Est GFR ( Amer) > 60 12/14/17 07:10 Est GFR (Non-Af Amer) > 60 12/14/17 07:10 POC Glucose (mg/dL) 88 mg/dL (65-110) 12/11/17 19:21 Random Glucose 97 mg/dL (75-110) 12/14/17 07:10 Calcium 9.2 mg/dl (8.6-10.4) 12/14/17 07:10 Magnesium 1.9 mg/dL (1.6-2.3) 12/11/17 17:59 Total Bilirubin 0.9 mg/dL (0.2-1.3) 12/11/17 17:59 AST 103 U/L (17-59) H D 12/11/17 17:59 ALT 67 U/L (21-72) 12/11/17 17:59 Alkaline Phosphatase 58 U/L (38-126) 12/11/17 17:59 Ammonia < 9 umol/L (9-33) L 12/16/17 11:47 Troponin I < 0.0120 ng/mL (0.00-0.120) 12/12/17 07:40 NT-Pro-B Natriuret Pep 15.1 pg/mL (0-900) 12/11/17 17:59 Total Protein 7.7 g/dL (6.3-8.3) 12/11/17 17:59 Albumin 4.4 g/dL (3.5-5.0) 12/11/17 17:59 Globulin 3.4 gm/dL (2.2-3.9) 12/11/17 17:59 Albumin/Globulin Ratio 1.3 (1.0-2.1) 12/11/17 17:59 Amylase 95 U/L (30-110) 12/16/17 11:47 Lipase 229 U/L (23-300) 12/16/17 11:47 Alpha Fetoprotein 2.6 ng/mL (0.0-7.5) 12/16/17 11:47 Carcinoembryonic Ag 5.8 ng/mL (0-3.0) H 12/16/17 11:47 Urine Color Straw (YELLOW) 12/11/17 17:59 Urine Clarity Clear (Clear) 12/11/17 17:59 Urine pH 6.0 (5.0-8.0) 12/11/17 17:59 Ur Specific [place] 1.003 (1.003-1.030) 12/11/17 17:59 Urine Protein Negative mg/dL (NEGATIVE) 12/11/17 17:59 Urine Glucose (UA) Normal mg/dL (Normal) 12/11/17 17:59 Urine Ketones Trace mg/dL (NEGATIVE) 12/11/17 17:59 Urine Blood 1+ (NEGATIVE) H 12/11/17 17:59 Urine Nitrate Negative (NEGATIVE) 12/11/17 17:59 Urine Bilirubin Negative (NEGATIVE) 12/11/17 17:59 Urine Urobilinogen Normal mg/dL (0.2-1.0) 12/11/17 17:59 Ur Leukocyte Esterase 2+ Elvira/uL (Negative) H 12/11/17 17:59 Urine WBC (Auto) 4 /hpf (0-5) 12/11/17 17:59 Urine RBC (Auto) 6 /hpf (0-3) H 12/11/17 17:59 Ur Squamous Epith Cells < 1 /hpf (0-5) 12/11/17 17:59 Urine Bacteria Rare (<OCC) 12/11/17 17:59 Urine Opiates Screen Negative (NEGATIVE) 12/11/17 17:59 Urine Methadone Screen Negative (NEGATIVE) 12/11/17 17:59 Ur Barbiturates Screen Negative (NEGATIVE) 12/11/17 17:59 Ur Phencyclidine Scrn Negative (NEGATIVE) 12/11/17 17:59 Ur Amphetamines Screen Negative (NEGATIVE) 12/11/17 17:59 U Benzodiazepines Scrn Negative (NEGATIVE) 12/11/17 17:59 U Oth Cocaine Metabols Negative (NEGATIVE) 18 17:59 U Cannabinoids Screen Negative (NEGATIVE) 18 17:59 Alcohol, Quantitative 361 mg/dl (0-10) H 12/11/17 17:59 - Hospital Course Hospital Course: Patient admitted with COPD, alcohol withdrawals, seen and examined. Alert and orientedx3, no sob or wheezing noted. Ambulating well. pt seen and examined by me, denies any chest pain, nausea, vomitting, stable for discharge, plan to discharge home on tapering prednisone. Advised to follow up with PMD in 1 week. Discharge Exam - Eye Exam Eye Exam: EOMI, Normal appearance, PERRL Pupil Exam: NORMAL ACCOMODATION, PERRL - ENT Exam ENT Exam: Mucous Membranes Moist - Respiratory Exam Respiratory Exam: Decreased Breath Sounds, Rales, Rhonchi - Cardiovascular Exam Cardiovascular Exam: REGULAR RHYTHM, +S1, +S2 - GI/Abdominal Exam GI & Abdominal Exam: Normal Bowel Sounds Discharge Plan - Discharge Medications Prescriptions: predniSONE [Prednisone] 10 mg PO DAILY #19 tab - Follow Up Plan Condition: STABLE Disposition: HOME/ ROUTINE Instructions: Heart Failure, Adult, Heart Healthy Diet, Chest Pain (DC), Alcohol Withdrawal, Exacerbation of COPD (DC), Alcohol Abuse and Alcoholism (DC) , Prednisone Additional Instructions: Follow up with primary doctor in one week. Referrals: Rakesh Arias MD [Staff Provider] -
--- NOTE | 2017-12-17 07:28 | CON ---
DATE: 12/15/2017LOCATION: 667, Bed B. HISTORY OF PRESENT ILLNESS: This is a 62-year-old male with known history of alcoholism who was admitted to the hospital due to recent occipital headache generalized weakness and malaise, upper extremity tremor, most likely related to his alcohol withdrawal syndrome with nausea, dyspepsia, but no reported chest pain or palpitation or significant shortness of breath. No active bleeding reported. PAST MEDICAL HISTORY: Including mainly but not limited to, 1. Hypertension. 2. Alcoholism. 3. Alcoholic liver disease. 4. Coronary artery disease. 5. COPD. 6. Peptic ulcer disease. 7. Osteoarthritis. 8. History of chronic lower back pain syndrome. 9. Benign prostatic hypertrophy. 10. Diabetes mellitus, borderline. 11. Hyperlipidemia. 12. Alcohol-induced seizure disorder. Psychiatric evaluation was done before due to the patient's substance abuse. FAMILY HISTORY: Unknown. SOCIAL HISTORY: Positive for alcohol intake and cigarette smoking. ALLERGIES: ALLERGY TO MEDICATION, UNCLEAR. CURRENT MEDICATION: Medication list post admission is reviewed. LABORATORY DATA: Most recent lab result is seen with reported lower white blood cells with low BUN and creatinine. PHYSICAL EXAMINATION: GENERAL: A 62-year-old male, somewhat awake, alert. VITAL SIGNS: Afebrile with pulse of 102, respiratory rate 20 to 22, blood pressure 148/98. HEENT: Showed pale dry oral mucoid membrane mildly. Nonicteric sclerae. LYMPH NODES: No lymphadenitis or lymphadenopathy. HEART: Regular S1 and S2 with increased rate. LUNGS: Few scattered mild crepitation with mild decreased air entry at bases. ABDOMEN: Soft with slight generalized tenderness. No mass or organomegaly. No rebound tenderness or guarding. EXTREMITIES: With upper extremities, both hands, fine tremors. No clubbing, cyanosis, or edema. NEUROLOGIC: No new reported neurological deficits, sensory or motor. No new reported focal deficits. IMPRESSION: 1. Alcoholism with alcoholic liver disease. 2. Early stage of delirium tremens. 3. To rule out an early stage of hepatic encephalopathy secondary to above. 4. Re-exacerbation of peptic ulcer disease. 5. Past medical history as mentioned above. SUGGESTIONS: 1. Agree with your plan. 2. Ammonia level. 3. The patient may need neomycin p.o. 500 mg every 6 hours. 4. Further recommendation to follow and the patient may need extensive psychiatry workup. 5. Cancer markers including CEA, alpha fetoprotein to be ordered. Thank you for letting me participate in patient's case management. Nyla Costello MD
== END 2017-12-16 15:20 | disposition home or self-care (01) | DRG 750 ==
LOC: C.ER 17:08 → C.9E 18:46 → C.6T 20:51 → C.9E 21:00 → C.6T 22:02
PROVIDERS: ADMIT Internal Medicine; ATTEND Internal Medicine
DX: F10.221 Alcohol dependence with intoxication delirium (principal); I11.0 Hypertensive heart disease with heart failure; I50.9 Heart failure, unspecified; J44.1 Chronic obstructive pulmonary disease with (acute) exacerbation; F10.231 Alcohol dependence with withdrawal delirium; E78.00 Pure hypercholesterolemia, unspecified; E11.9 Type 2 diabetes mellitus without complications; G40.909 Epilepsy, unspecified, not intractable, without status epilepticus; I25.10 Atherosclerotic heart disease of native coronary artery without angina pectoris; K70.9 Alcoholic liver disease, unspecified; N40.0 Benign prostatic hyperplasia without lower urinary tract symptoms; F17.210 Nicotine dependence, cigarettes, uncomplicated; Y90.8 Blood alcohol level of 240 mg/100 ml or more; M54.5 Low back pain; G89.29 Other chronic pain; K25.3 Acute gastric ulcer without hemorrhage or perforation

== ENCOUNTER 2018-03-21 10:46 | Emergency (ER) | payer OTHER ==
[2018-03-21 10:47] VITALS: BMI 20.7
[2018-03-21 11:01] VITALS: TEMP 97.5; O2SAT 98
--- NOTE | 2018-03-21 11:05 | C.PDOC ---
History Of Present Illness 63 year old male presents to the ED for scalp staple removal that was placed 2 weeks ago. Brick healing well, dry and clean. Patient denies new injury, fall , trauma, weakness, numbness. FOR SCALP STAPLE REMOVAL PLACED 2 WEEKS AGO. PS HEALING WELL, NO NEW COMPLAINTS EXAM NAD SKIN SCALP MOJGAN X 5 INTACT, WELL HEALED NO INFXN PROC 5 MOJGAN REMOVED WO DIFF. 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 WILL FU [facility] Time Seen by Provider: 03/21/18 11:02 Chief Complaint (Nursing): Suture/Staple Removal History Per: Patient History/Exam Limitations: no limitations Onset/Duration Of Symptoms: Days Ago Current Symptoms Are (Timing): Better Location Of Injury: Posterior: Head (mojgan ) Recent travel outside of the [place]: No Additional History Per: Patient Past Medical History Reviewed: Historical Data, Nursing Documentation, Vital Signs Vital Signs: Last Vital Signs Temp 97.5 F L 03/21/18 10:57 Pulse 78 03/21/18 11:12 Resp 16 03/21/18 11:12 BP 146/94 H 03/21/18 11:12 Pulse Ox 98 03/21/18 11:24 - Medical History PMH: Arthritis, Asthma, Back Problems, Benign Prostatic Hyperplasia, Bronchitis , Cardiac Aneurysm, CHF, COPD, Diabetes (Borderline), Emphysema, Gastritis, HTN , Hypercholesterolemia, Seizures Denies: Chronic Kidney Disease Surgical History: Hernia Repair - [facility] Procedures ALCOHOL DETOXIFICATION (11/15/14) DETOXIFICATION SERVICES FOR SUBSTANCE ABUSE TREATMENT (03/08/17) INDIV PSYCHOTHERAPY FOR SUBSTANCE ABUSE TREATMENT, SUPPORT (03/08/17) INDIV PSYCHOTHERAPY FOR SUBSTANCE ABUSE, COGNITIV BEHAVIORAL (03/08/17) INDIV PSYCHOTHERAPY FOR SUBSTANCE ABUSE, PSYCHOEDUCATION (03/08/17) INSERT INDWELLING CATH (06/08/13) TETANUS TOXOID ADMINIST (05/28/14) Family History: States: Unknown Family Hx - Social History Hx Tobacco Use: Yes Hx Alcohol Use: Yes (beer and vodka) Hx Substance Use: No - Immunization History Hx Tetanus Toxoid Vaccination: Yes Hx Influenza Vaccination: Yes Hx Pneumococcal Vaccination: Yes Review Of Systems Constitutional: Negative for: Fever, Chills Eyes: Negative for: Vision Change Cardiovascular: Negative for: Chest Pain, Palpitations Respiratory: Negative for: Shortness of Breath Gastrointestinal: Negative for: Nausea, Vomiting Skin: Positive for: Other (mojgan) Neurological: Negative for: Weakness, Numbness, Headache Physical Exam - Physical Exam Appears: Non-toxic, No Acute Distress Skin: Normal Color, Warm, Dry, Other (scalp mojgan x5 intact, well healed no infection) Head: Atraumatic, Normacephalic Eye(s): bilateral: Normal Inspection Chest: Symmetrical Cardiovascular: Rhythm Regular Respiratory: Normal Breath Sounds, No Rales, No Rhonchi, No Wheezing Extremity: Normal ROM, No Tenderness, No Swelling Neurological/Psych: Oriented x3, Normal Speech Gait: Steady ED Course And Treatment O2 Sat by Pulse Oximetry: 98 (ON RA) Pulse Ox Interpretation: Normal Procedure: Blank - Time Time Performed: 11:22 - Time Out Time Out: Side verified, Site verified, Patient ID confirmed, Sterile procedures obs. 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 Patient states he will F/U at [facility] Disposition Counseled Patient/Family Regarding: Diagnosis, Need For Followup - Disposition Referrals: YOUR,PMD [Other] Disposition: HOME/ ROUTINE Disposition Time: 11:05 Condition: IMPROVED Instructions: Staple Removal Forms: [employer] ([place]) - Clinical Impression Clinical Impression: Visit for wound check, Removal of staple - Scribe Statement The provider has reviewed the documentation as recorded by the Scribe Lui Sahu All medical record entries made by the Scribe were at my direction and personally dictated by me. I have reviewed the chart and agree that the record accurately reflects my personal performance of the history, physical exam, medical decision making, and the department course for this patient. I have also personally directed, reviewed, and agree with the discharge instructions and disposition.
[2018-03-21 11:13] VITALS: BP 146/94; PULSE 78; RESP 16
== END 2018-03-21 11:12 | disposition home or self-care (01) ==
LOC: C.ER 10:46
DX: Z48.02 Encounter for removal of sutures (principal)

== ENCOUNTER 2018-03-22 14:42 | Emergency (ER) | payer OTHER ==
[2018-03-22 14:42] VITALS: BMI 20.7
--- NOTE | 2018-03-22 15:45 | C.PDOC ---
History Of Present Illness 63 y/o M p/w hypotension. Patient here yesterday for staple removal for head laceration. BP yesterday in ED was elevated, worrying him, so he took 2 blood pressure medications today and then became lightheaded but no fall or LOC and checked his BP, was found to be 67/47 and decided to come to ED by bus. Here in ED, triage blood pressure 92/64. Denies fever, chills, chest pain, dyspnea, nausea, vomiting, diarrhea, dysuria, numbness, motor weakness. Time Seen by Provider: 03/22/18 15:18 Chief Complaint (Nursing): Dizziness/Lightheaded Past Medical History Vital Signs: Last Vital Signs Temp 97.8 F 03/22/18 17:34 Pulse 87 03/22/18 18:00 Resp 14 03/22/18 18:00 BP 112/69 03/22/18 18:00 Pulse Ox 96 03/22/18 18:00 - Medical History PMH: Arthritis, Asthma, Back Problems, Benign Prostatic Hyperplasia, Bronchitis , Cardiac Aneurysm, CHF, COPD, Diabetes (Borderline), Emphysema, Gastritis, HTN , Hypercholesterolemia, Seizures Denies: Chronic Kidney Disease Surgical History: Hernia Repair - [facility] Procedures ALCOHOL DETOXIFICATION (11/15/14) DETOXIFICATION SERVICES FOR SUBSTANCE ABUSE TREATMENT (03/08/17) INDIV PSYCHOTHERAPY FOR SUBSTANCE ABUSE TREATMENT, SUPPORT (03/08/17) INDIV PSYCHOTHERAPY FOR SUBSTANCE ABUSE, COGNITIV BEHAVIORAL (03/08/17) INDIV PSYCHOTHERAPY FOR SUBSTANCE ABUSE, PSYCHOEDUCATION (03/08/17) INSERT INDWELLING CATH (06/08/13) TETANUS TOXOID ADMINIST (05/28/14) Family History: States: Unknown Family Hx - Social History Hx Tobacco Use: Yes Hx Alcohol Use: Yes (beer and vodka) Hx Substance Use: No - Immunization History Hx Tetanus Toxoid Vaccination: Yes Hx Influenza Vaccination: Yes Hx Pneumococcal Vaccination: Yes Review Of Systems Except As Marked, All Systems Reviewed And Found Negative. Constitutional: Negative for: Fever Cardiovascular: Negative for: Chest Pain Physical Exam - Physical Exam Additional Physical Exam Comments: Constitutional: No acute distress. Head: Normocephalic. Atraumatic. Eyes: PERRL. ENT: Moist mucous membranes. Neck: Supple. Cardiovascular: Regular rate. Radial pulse 2+ bilaterally. Chest: No tenderness. Respiratory: Clear to auscultation bilaterally. GI: Soft. Nontender. Nondistended. Back: No CVA tenderness. Musculoskeletal: No tenderness or swelling of extremities. Skin: No rash. Neurologic: Alert, no focal deficit. ED Course And Treatment O2 Sat by Pulse Oximetry: 100 (RA) Pulse Ox Interpretation: Normal Medical Decision Making Medical Decision Making: Observe, education, discharge. EKG NSR 87 bpm, no ST/T wave changes. Blood pressure checked after 4 hours observation, 117/70. Disposition - Disposition Disposition: HOME/ ROUTINE Disposition Time: 18:28 Condition: STABLE Instructions: High Blood Pressure (DC) Forms: [facility] ([place]) - Clinical Impression Clinical Impression: Hypotension
[2018-03-22 18:50] VITALS: BP 110/68; PULSE 90; RESP 16; TEMP 97.9; O2SAT 97
--- NOTE | 2018-03-23 23:37 | CARD ---
APPROVED REPORT Date of service: 03/22/2018 EKG Measurement Heart [id number] <Conclusion> Normal sinus rhythm Prolonged QT Abnormal ECG
== END 2018-03-22 18:50 | disposition home or self-care (01) ==
LOC: C.ER 14:42
DX: I95.9 Hypotension, unspecified (principal)

== ENCOUNTER 2018-10-24 02:26 | Inpatient (IN) | payer OTHER ==
[2018-10-24 02:27] VITALS: BMI 20.7
[2018-10-24 04:05] LABS: BASO % 0.3 % (0.0-2.0); EOS # 0.1 K/uL (0.0-0.7); EOS % 1.5 % (0.0-4.0); HEMOGLOBIN 15.5 g/dL (12.0-18.0); LYMPH # 1.7 K/uL (1.0-4.3); LYMPH % 46.6 % (20.0-40.0); MEAN CELL VOLUME 96.7 fL (80.0-94.0); MEAN CORPUSCULAR HEMOGLOBIN 32.6 pg (27.0-31.0); MEAN CORPUSCULAR HGB CONC 33.7 g/dL (33.0-37.0); MEAN PLATELET VOLUME 8.2 fL (7.2-11.7); MONO # 0.6 K/uL (0.0-0.8); MONO % 14.9 % (0.0-10.0); NEUT # 1.4 K/uL (1.8-7.0); NEUT % 36.7 % (50.0-75.0); NRBC % 0.2 % (0.0-2.0); RBC 4.76 Mil/uL (4.40-5.90); RED CELL DISTRIBUTION WIDTH 14.8 % (11.5-14.5); WHITE BLOOD COUNT 3.7 K/uL (4.8-10.8)
[2018-10-24 04:18] LABS: ALB/GLOB RATIO 1.8 (1.0-2.1); ALBUMIN 4.8 g/dL (3.5-5.0); ALT/SGPT 32 U/L (21-72); AST/SGOT 54 U/L (17-59); BLOOD UREA NITROGEN 13 mg/dL (9-20); CALCIUM 9.6 mg/dl (8.6-10.4); GFR NON-AFRICAN AMERICAN > 60; LIPASE 259 U/L (23-300)
[2018-10-24] MEDS ORDERED: Multivitamin (MVI) 10 ML, Thiamine 100 MG, Folic Acid 1 MG in Sodium Chloride 0.9% 1,00... IV ONE (05:03)
[2018-10-24] MEDS ORDERED: Potassium Chloride 20 mEq ER Tab PO STA (06:02)
--- NOTE | 2018-10-24 06:06 | C.PDOC ---
History Of Present Illness 63 y/o male with multiple medical problems comes to ED with c/o coming home form getting cigarettes at 330 pm and being found on ground many hours later by his roommate; pt sts he doesn't remember what happened. pt c/o vomiting i ntermittently for the last 3 days. Time Seen by Provider: 10/24/18 03:22 Chief Complaint (Nursing): Medical Clearance History Per: Patient History/Exam Limitations: no limitations Onset/Duration Of Symptoms: Hrs Current Symptoms Are (Timing): Still Present Severity: Moderate Past Medical History Vital Signs: Last Vital Signs Temp 97.4 F L 10/24/18 02:45 Pulse 108 H 10/24/18 02:45 Resp 16 10/24/18 02:45 BP 122/81 10/24/18 02:45 Pulse Ox 97 10/24/18 02:45 - Medical History PMH: Arthritis, Asthma, Back Problems, Benign Prostatic Hyperplasia, Bronchitis, Cardiac Aneurysm, CHF, COPD, Diabetes (Borderline), Emphysema, Gastritis, HTN, Hypercholesterolemia, Seizures Denies: Chronic Kidney Disease Surgical History: Hernia Repair - [facility] Procedures ALCOHOL DETOXIFICATION (11/15/14) DETOXIFICATION SERVICES FOR SUBSTANCE ABUSE TREATMENT (03/08/17) INDIV PSYCHOTHERAPY FOR SUBSTANCE ABUSE TREATMENT, SUPPORT (03/08/17) INDIV PSYCHOTHERAPY FOR SUBSTANCE ABUSE, COGNITIV BEHAVIORAL (03/08/17) INDIV PSYCHOTHERAPY FOR SUBSTANCE ABUSE, PSYCHOEDUCATION (03/08/17) INSERT INDWELLING CATH (06/08/13) TETANUS TOXOID ADMINIST (05/28/14) Family History: States: Unknown Family Hx - Social History Hx Tobacco Use: Yes Hx Alcohol Use: Yes (beer and vodka) Hx Substance Use: No - Immunization History Hx Tetanus Toxoid Vaccination: Yes Hx Influenza Vaccination: Yes Hx Pneumococcal Vaccination: Yes Review Of Systems Constitutional: Negative for: Fever, Chills Cardiovascular: Negative for: Chest Pain Respiratory: Negative for: Cough, Shortness of Breath Gastrointestinal: Positive for: Vomiting. Negative for: Nausea, Abdominal Pain Skin: Negative for: Rash Neurological: Negative for: Weakness, Numbness Physical Exam - Physical Exam Appears: Non-toxic, Chronically Ill Skin: Warm, Dry, Other (abrasion right arm) Head: Atraumatic, Normacephalic, Tenderness (posterior occiput) Ear(s): Bilateral: Normal (no hemotympanum noted ) Oral Mucosa: Dry Tongue: Other (dry) Teeth: Other (poor dentition) Neck: Midline Cervical Tenderness, Paracervical Tenderness, No Step Off Deformity Chest: No Deformity, No Tenderness Cardiovascular: Rhythm Regular, No Murmur, Other (tachycardic) Respiratory: No Decreased Breath Sounds, No Rales, No Rhonchi, No Wheezing Gastrointestinal/Abdominal: Bowel Sounds, Soft, No Tenderness, No Guarding, No Rebound Back: No Vertebral Tenderness Extremity: No Pedal Edema, No Swelling Neurological/Psych: Oriented x3, Normal Speech, Normal Cognition ED Course And Treatment - Laboratory Results Result Diagrams: 10/24/18 04:01 10/24/18 04:01 Lab Results: Troponin I < 0.0120 ng/mL (0.00-0.120) 10/24/18 05:25 Total Bilirubin 0.8 mg/dL (0.2-1.3) 10/24/18 04:01 AST 54 U/L (17-59) 10/24/18 04:01 ALT 32 U/L (21-72) 10/24/18 04:01 Alkaline Phosphatase 70 U/L (38-126) 10/24/18 04:01 Total Protein 7.5 g/dL (6.3-8.3) 10/24/18 04:01 Albumin 4.8 g/dL (3.5-5.0) 10/24/18 04:01 Globulin 2.7 gm/dL (2.2-3.9) 10/24/18 04:01 Albumin/Globulin Ratio 1.8 (1.0-2.1) 10/24/18 04:01 Lipase 259 U/L (23-300) 10/24/18 04:01 ECG Rhythm: Sinus Tachycardia Interpretation Of ECG: Sinus Tachycardia at rate 103bpm. LVH. Rate From EC O2 Sat by Pulse Oximetry: 97 - CT Scan/US CT Head Other Rad Studies (CT/US): Read By Radiologist, Radiology Report Reviewed CT/US Interpretation: CT scan of the head. CLINICAL HISTORY: s/p fall vs syncope ? alcohol (Hx). TECHNIQUE: Multiple axial CT images were obtained through the brain without IV contrast material. COMPARISON: 05/13/2017. COMMENTS: There is normal configuration of sella turcica. There are no intra or extra-axial collections. There is no mass effect or midline shift. There is no evidence of hematoma formation. No hydrocephalus is present. The ventricles are symmetrical. No abnormal calcifications are present. There is diffuse age- appropriate cerebellar and cerebral atrophy with proportionally dilated ventricles and cortical sulci. There are bilateral periventricular and subcortical white matter hypolucencies compatible with mild chronic microvascular disease. Otherwise, no significant focal abnormalities are seen either in the posterior fossa or supratentorial compartment. IMPRESSION: 1. Age-appropriate cerebellar and cerebral atrophy. 2. Mild chronic microvascular disease. 3. No evidence of acute intracranial pathology. CT Cervical Spine Other Rad Studies (CT/US): Read By Radiologist, Radiology Report Reviewed CT/US Interpretation: CT scan of the cervical spine without contrast. Indication: Trauma. Pain. COMPARISON: 05/13/2017. Technique: Axial CT scan images without contrast. Reformatted coronal and sagittal images. Findings: Grade 1 anterolisthesis of C3 on C4. Grade 1 retrolisthesis of C4 on C5. There are moderate diffuse spondylotic changes. Findings are demonstrated by disc space narrowing, osteophyte formation and degenerative endplate changes. Facet joint arthropathy is noted. No fracture or dislocation is seen. No aggressive bone lesion is noted. Impression: Spondylosis. Multilevel facet joint arthropathy. No acute bone pathology. Medical Decision Making Medical Decision Making: discussed with Dr Cavanaugh, admit to his service pt with multiple medical problems, unclear what happened; neg head and cervical spine ct. will admot for syncope. Disposition Discussed With .: Shelli Cavanaugh Doctor Will See Patient In The: Hospital - Disposition Disposition: HOSPITALIZED Disposition Time: 07:23 Condition: STABLE Forms: [facility] (Japanese) - Clinical Impression Clinical Impression: Syncope, ETOH abuse, Hyponatremia, Hypokalemia
[2018-10-24] MEDS ORDERED: Potassium Chloride 20 mEq ER Tab PO ONE (06:28)
[2018-10-24 07:49] LABS: SQUAMOUS EPITHIAL < 1 /hpf (0-5); URINE BILIRUBIN NEGATIVE (NEGATIVE); URINE BLOOD NEGATIVE (NEGATIVE); URINE CLARITY Hazy (Clear); URINE COLOR Yellow (YELLOW); URINE GLUCOSE (UA) NORMAL (Normal); URINE HYALINE CAST >20 /lpf (0-2); URINE LEUKOCYTE ESTERASE NEG Leu/uL (Negative); URINE PROTEIN NEGATIVE (NEGATIVE); URINE UROBILINOGEN NORMAL mg/dL (0.2-1.0)
[2018-10-24 08:13] LABS: BARBITURATES, UR NEGATIVE (NEGATIVE); BENZODIAZEPINES, UR NEGATIVE (NEGATIVE); OPIATES, UR NEGATIVE (NEGATIVE); PHENCYCLIDINE, UR NEGATIVE (NEGATIVE)
--- NOTE | 2018-10-24 10:27 | CT ---
Date of service: 10/24/2018 PROCEDURE: CT HEAD WITHOUT CONTRAST. HISTORY: fall vs syncope COMPARISON: MRI brain without contrast from 05/14/2017. TECHNIQUE: Axial computed tomography images were obtained through the head/brain without intravenous contrast. Radiation dose: Total exam DLP = 981.07 mGy-cm. This CT exam was performed using one or more of the following dose reduction techniques: Automated exposure control, adjustment of the mA and/or kV according to patient size, and/or use of iterative reconstruction technique. FINDINGS: HEMORRHAGE: No intracranial hemorrhage. BRAIN: There are mild chronic microangiopathic changes. There is no mass, mass effect or abnormal extra-axial fluid collection. There is no territorial infarction. The midline sagittal structures are normal. VENTRICLES: There is mild age-related global parenchymal volume loss and proportionate enlargement of the ventricles and cortical sulci. CALVARIUM: There is no calvarial fracture or extracranial soft tissue swelling. PARANASAL SINUSES: There is mild mucosal thickening in the right frontal sinus and scattered mucosal thickening in the ethmoid air cells. The remaining included paranasal sinuses are clear. MASTOID AIR CELLS: Predominantly clear. OTHER FINDINGS: None. IMPRESSION: No acute intracranial abnormality. Mild chronic microangiopathic changes and mild age-related global parenchymal volume loss.
--- NOTE | 2018-10-24 11:16 | CT ---
Date of service: 10/24/2018 PROCEDURE: CT Cervical Spine without contrast HISTORY: F the all vs syncope neck pain COMPARISON: None available. TECHNIQUE: Axial computed tomography images were obtained of the cervical spine without the use of intravenous contrast. Coronal and sagittal reformatted images were created and reviewed. Radiation dose: Total exam DLP = 373.82 mGy-cm. This CT exam was performed using one or more of the following dose reduction techniques: Automated exposure control, adjustment of the mA and/or kV according to patient size, and/or use of iterative reconstruction technique. FINDINGS: VERTEBRAE: No acute compression fractures nor retropulsed fragments. Vertebral bodies exhibit normal stature. In addition, there is also slight anterior subluxation C3 over C4. Vertebral bodies otherwise exhibit normal alignment. Facets normally aligned. DISCS/SPINAL CANAL/NEURAL FORAMINA: Multilevel degenerative spondylosis. At the C4-C5 level, there is marked disc space narrowing with cortical irregularity and subchondral eburnation/cystic changes. Asymmetric broad-based disc ridge complex contiguous with hypertrophic uncovertebral joints present. Changes slightly larger on the right result in mild flattening of the ventral surface of thecal sac and spinal cord more so on the right side. Central canal appears adequate. Facet joints also hypertrophic. Exit foramina stenotic. At the C5-C6 level, there is also disc desiccation and disc space narrowing with subchondral eburnation and cystic changes. Small broad-based disc ridge complex contiguous with hypertrophic uncovertebral joints left greater than right. Changes result in mild compressive effects on the ventral surface of the thecal sac and spinal cord. Central canal is marginal to minimally narrowed. Exit foramina are stenotic bilaterally.. At the C6-C7 level, there is disc space narrowing with mild endplate eburnation. Small slightly irregular although broad-based disc ridge complex contiguous with hypertrophic uncovertebral joints left greater than right. Facets also hypertrophic. Central canal is slightly narrowed. The exit foramina are stenotic bilaterally. At the C3-C4 level, there is mild disc space narrowing. Minimal broad-based disc ridge complex contiguous with hypertrophic uncovertebral joints larger on the right than left. Facets are hypertrophic. The central canal appears adequate. Exit foramina are stenotic bilaterally right greater than left.. PARASPINAL SOFT TISSUES: Unremarkable. OTHER FINDINGS: Vascular calcifications both carotid bifurcations. IMPRESSION: No acute fractures. Multilevel degenerative spondylosis which most notably affect the exit foramina with moderate to fairly significant bilateral foraminal stenosis nearly every level. See above discussion additional details.
[2018-10-24] MEDS ORDERED: Albuterol-Ipratrop 3 mg / 0.5 (3 ml) UD INH PRN (12:56)
--- NOTE | 2018-10-24 12:56 | CP.PCM.PN ---
Subjective - Date & Time of Evaluation Date of Evaluation: 10/24/18 Time of Evaluation: 12:49 - Subjective Subjective: Medicine Progress Note - Dr Cavanaugh's service Patient is a 63 year old male with past medical history of HTN, CPOD/emphysema who presented to the emergency department after having a syncopal episode at home. Patient states that he was in his kitchen making soup when he passed out. Unclear how long he was down for. He was found by his roomate after he returned from work. Patient states that he did drink a beer earlier in the afternoon. He was tremulous however he reports that he is like this at baseline. Patient states that he has been drinking beers for many years and denies ever going through alcohol withdrawal or having withdrawal seizures. He states that he drinks 2-3 beers every couple of days. Patient states that for the past few days prior to admission he was having nausea and vomiting. Currently he offers no complaints at this time. Allergies: Tomatoes (itchiness) Medications: Nifedipine 60mg, Advair, Symbicort Medical History: COPD/emphysema, hypertension, alcohol abuse Surgical History: Hernia repair Social History: Drinks 2-3 beers every few days for years, smokes 1 pack per week, denies drug use Objective - Vital Signs/Intake and Output Vital Signs (last 24 hours): Temp Pulse Resp BP Pulse Ox 98.4 F 118 H 18 147/106 H 94 L 10/24/18 07:23 10/24/18 12:30 10/24/18 12:30 10/24/18 12:30 10/24/18 12:30 - Medications Medications: Current Medications Multivitamins/Vitamin C 10 ml/Thiamine HCl 100 mg/ Folic Acid 1 mg/ Sodium Chloride 1,011.2 mls @ 100 mls/hr IV .Q10H7M ONE Stop: 10/24/18 15:09 Last Admin: 10/24/18 06:22 Dose: 100 mls/hr Folic Acid 1 mg/ Thiamine HCl 100 mg/ Multivitamins/Vitamin C 10 ml/ Dextrose 1,011.2 mls @ 150 mls/hr IV Q24H NOEL Lorazepam (Ativan) 1 mg IVP Q4H PRN PRN Reason: Symptoms of alcohol withdrawl Last Admin: 10/24/18 12:36 Dose: 1 mg Pantoprazole Sodium (Protonix Inj) 40 mg IVP DAILY NOEL - Labs Labs: 10/24/18 04:01 10/24/18 04:01 - Constitutional Appears: No Acute Distress, Older Than Stated Age, Chronically Ill - Head Exam Head Exam: ATRAUMATIC, NORMAL INSPECTION - Eye Exam Eye Exam: EOMI, Normal appearance - ENT Exam ENT Exam: Mucous Membranes Dry - Neck Exam Neck Exam: Full ROM - Respiratory Exam Respiratory Exam: Decreased Breath Sounds. absent: Rales, Rhonchi, Wheezes - Cardiovascular Exam Cardiovascular Exam: Tachycardia, +S1, +S2. absent: Diastolic murmur - GI/Abdominal Exam GI & Abdominal Exam: Soft, Tenderness (Mild). absent: Firm, Guarding, Rigid - Extremities Exam Extremities Exam: absent: Calf Tenderness - Neurological Exam Neurological Exam: Alert, Awake, Oriented x3 Additional comments: +tremulous - Psychiatric Exam Psychiatric exam: Normal Affect, Normal Mood - Skin Skin Exam: Dry, Normal Color, Warm Assessment and Plan - Assessment and Plan (Free Text) Assessment: Alcohol abuse/Alcohol dependence -Stable, afebrile -Admit to telemetry -Alcohol level on admission 284 -Started on banana bag -Ativan 1mg Q4H prn alcohol withdrawal symptoms -Psych consulted, Dr Vela, help appreciated -CIWA protocol, Seizure precautions, aspiration prescautions -Physical therapy ordered Syncopal episode? -EKG showed sinus tachycardia -Troponins negative x 1, trend JAN q6H x 2 -CT head: No acute intracranial abnormality. Mild chronic microangiopathic changes and mild age-related global parenchymal volume loss -Cervical spine CT: No acute fractures. Multilevel degenerative spondylosis which most notably affect the exit foramina with moderate to fairly significant bilateral foraminal stenosis nearly every level. (see report for details) -Fall precautions Right lower lobe infiltrate, CAP -CXR showed New right lower lobe infiltrate/atelectasis. A component of volume loss is suspected by the elevation of the right hemidiaphragm -Started on Azithromycin and Rocephin -Blood cultures ordered, urine legionella, mycoplasma, urine strep Tachycardia -Patient tachycardic on exam -Saturating at low 90s on NC -D Dimer ordered COPD/Emphysema -Duonebs q4H prn shortness of breath Hypertension -Started on Nifedipine 60mg PO daily -Continue to monitor GI/DVT ppx: -Protonix 40mg IVP -Lovenox 40mg SC daily Plan discussed with Dr Afshan Salguero DO PGY-2
[2018-10-24] MEDS: NIFEdipine 60 mg ER Tab PO SCH (13:52)
--- NOTE | 2018-10-24 14:04 | RAD ---
Date of service: 10/24/2018 PROCEDURE: CHEST RADIOGRAPH, 1 VIEW HISTORY: copd COMPARISON: 12/13/2017. FINDINGS: LUNGS: Elevated right hemidiaphragm a new finding compared to the prior study. Lower lobe infiltrates/atelectasis also new finding on the right. PLEURA: No pneumothorax or pleural fluid seen. CARDIOVASCULAR: Atherosclerotic calcifications identified primarily aortic arch. No radiographic findings to suggest acute or significant cardiovascular disease. OSSEOUS STRUCTURES: No significant abnormalities. VISUALIZED UPPER ABDOMEN: Normal. OTHER FINDINGS: None. IMPRESSION: New right lower lobe infiltrate/atelectasis. A component of volume loss is suspected by the elevation of the right hemidiaphragm.
[2018-10-24 16:19] VITALS: RESP 20
[2018-10-24] MEDS ORDERED: Azithromycin 500mg/250ML NS 500 MG/250 ML BAG IVPB ONE (16:31)
[2018-10-24 18:36] LABS: CK-MB 1.07 ng/mL (0.0-3.38)
[2018-10-24] MEDS ORDERED: Iodixanol 320 MG/ML 100 ML BOTTLE IV ONE (18:36)
[2018-10-24 23:21] LABS: CK-MB 0.75 ng/mL (0.0-3.38)
[2018-10-25] MEDS ORDERED: Folic Acid 1 MG, Thiamine 100 MG, Multivitamin (MVI) 10 ML in Dextrose 5% In Water 1,00... IV SCH (05:00)
--- NOTE | 2018-10-25 06:02 | HP ---
HISTORY OF PRESENT ILLNESS: Mr. Celeste was admitted to the hospital with chief complaint of recurrent falls. The patient has a history of alcoholism and a history of broken wrist in the past when he fell. PHYSICAL EXAMINATION: GENERAL: The patient is awake and alert. HEENT: Within normal limit. NECK: Supple. CHEST: Symmetrical. HEART: Regular. ABDOMEN: Soft. EXTREMITIES: No edema. ASSESSMENT AND PLAN: The patient has history of recurrent fall, rule out neuropathy, alcoholism. The patient is to get bed rest. Neuro check. Physical therapy evaluation. PT precaution. Shelli Cavanaugh MD
[2018-10-25 07:18] LABS: BASO % 0.7 % (0.0-2.0); EOS # 0.1 K/uL (0.0-0.7); EOS % 2.7 % (0.0-4.0); HEMOGLOBIN 14.3 g/dL (12.0-18.0); LYMPH # 1.1 K/uL (1.0-4.3); LYMPH % 28.3 % (20.0-40.0); MEAN CORPUSCULAR HEMOGLOBIN 33.6 pg (27.0-31.0); MEAN CORPUSCULAR HGB CONC 34.3 g/dL (33.0-37.0); MONO # 0.6 K/uL (0.0-0.8); MONO % 14.4 % (0.0-10.0); NEUT # 2.1 K/uL (1.8-7.0); NEUT % 53.9 % (50.0-75.0); NRBC % 0.1 % (0.0-2.0); RBC 4.24 Mil/uL (4.40-5.90); RED CELL DISTRIBUTION WIDTH 14.6 % (11.5-14.5); WHITE BLOOD COUNT 3.8 K/uL (4.8-10.8)
[2018-10-25 07:46] LABS: ALB/GLOB RATIO 1.6 (1.0-2.1); ALT/SGPT 23 U/L (21-72); AST/SGOT 51 U/L (17-59); BLOOD UREA NITROGEN 15 mg/dL (9-20); CALCIUM 8.9 mg/dl (8.6-10.4); GFR NON-AFRICAN AMERICAN > 60
[2018-10-25] MEDS ORDERED: Potassium Chloride 20 mEq/15 ml LIQ UD PO ONE (07:51)
--- NOTE | 2018-10-25 07:53 | CP.PCM.PN ---
Subjective - Date & Time of Evaluation Date of Evaluation: 10/25/18 Time of Evaluation: 07:51 - Subjective Subjective: PGY-2 Progress Note Patient seen and examined at bedside. Per nursing no acute events occurred overnight. Patient denies any fevers, chills, headaches, dizziness, chest pain, dizziness, syncopal episodes, or any other complaints. Objective - Vital Signs/Intake and Output Vital Signs (last 24 hours): Temp Pulse Resp BP Pulse Ox 97.7 F 101 H 20 152/96 H 97 10/24/18 23:15 10/25/18 07:30 10/24/18 23:15 10/24/18 23:15 10/24/18 23:15 Intake and Output: 10/25/18 10/25/18 06:59 18:59 Intake Total 200 Output Total 400 Balance -200 - Medications Medications: Current Medications Albuterol/Ipratropium (Duoneb 3 Mg/0.5 Mg (3 Ml) Ud) 3 ml INH RQ4 PRN PRN Reason: Shortness of Breath Enoxaparin Sodium (Lovenox) 40 mg SC DAILY [facility] Azithromycin 500 mg/ Sodium (Chloride) 250 mls @ 250 mls/hr IVPB Q24H NOEL; Protocol Ceftriaxone Sodium 1 gm/ (Sodium Chloride) 100 mls @ 100 mls/hr IVPB DAILY NOEL; Protocol Last Admin: 10/24/18 16:05 Dose: 100 mls/hr Folic Acid 1 mg/ Thiamine HCl 100 mg/ Multivitamins/Vitamin C 10 ml/ Dextrose 1,011.2 mls @ 150 mls/hr IV Q24H NOEL Lorazepam (Ativan) 1 mg IVP Q4H PRN PRN Reason: Symptoms of alcohol withdrawl Last Admin: 10/24/18 12:36 Dose: 1 mg Nifedipine (Procardia Xl) 60 mg PO DAILY NOEL Last Admin: 10/24/18 13:52 Dose: 60 mg Pantoprazole Sodium (Protonix Inj) 40 mg IVP DAILY [facility] Potassium Chloride (Potassium Chloride Oral Soln) 20 meq PO ONCE ONE Stop: 10/25/18 07:52 - Labs Labs: 10/25/18 07:04 10/25/18 07:04 - Head Exam Head Exam: ATRAUMATIC, NORMAL INSPECTION - Eye Exam Eye Exam: EOMI, Normal appearance, PERRL Pupil Exam: NORMAL ACCOMODATION - ENT Exam ENT Exam: Mucous Membranes Moist, Normal Oropharynx - Respiratory Exam Respiratory Exam: Clear to Ausculation Bilateral, NORMAL BREATHING PATTERN. absent: Prolonged Expiratory Phase, Respiratory Distress - Cardiovascular Exam Cardiovascular Exam: REGULAR RHYTHM, +S1, +S2 - GI/Abdominal Exam GI & Abdominal Exam: Soft, Normal Bowel Sounds. absent: Hyperactive Bowel Sounds - Extremities Exam Extremities Exam: Full ROM, Normal Inspection. absent: Pedal Edema - Back Exam Back Exam: NORMAL INSPECTION. absent: CVA tenderness (R), paraspinal tenderness - Neurological Exam Neurological Exam: Alert, Awake, Oriented x3 - Psychiatric Exam Psychiatric exam: Normal Affect, Normal Mood - Skin Skin Exam: Dry, Intact, Normal Color Assessment and Plan - Assessment and Plan (Free Text) Plan: Alcohol abuse/Alcohol dependence -Stable, afebrile -Admit to telemetry -Alcohol level on admission 284 -Started on banana bag -Ativan 1mg Q4H prn alcohol withdrawal symptoms -Psych consulted, Dr Vela, help appreciated -CIWA protocol, Seizure precautions, aspiration precautions -Physical therapy ordered Syncopal episode? -EKG showed sinus tachycardia -Troponins negative x 2. Will f/u with final troponin -CT head: No acute intracranial abnormality. Mild chronic microangiopathic changes and mild age-related global parenchymal volume loss -Cervical spine CT: No acute fractures. Multilevel degenerative spondylosis which most notably affect the exit foramina with moderate to fairly significant bilateral foraminal stenosis nearly every level. (see report for details) -Fall precautions -PT eval : Attempted however was deferred by Nursing due to patient's tachycardia Right lower lobe infiltrate, CAP -CXR showed New right lower lobe infiltrate/atelectasis. A component of volume loss is suspected by the elevation of the right hemidiaphragm -Started on Azithromycin and Rocephin -Urine legionella, strep penumoniae negative. Will f/u with mycoplasma results -Blood cultures ordered. Will f/u with results Tachycardia -Patient tachycardic on exam -Saturating at low 90s on NC -D Dimer 400 -CTA taken. Will f/u with final read. COPD/Emphysema -Duonebs q4H prn shortness of breath Hypertension -Started on Nifedipine 60mg PO daily -Continue to monitor GI/DVT ppx: -Protonix 40mg IVP -Lovenox 40mg SC daily Dispo: Pending PT Eval patient likely be discharged tomorrow on PO antibiotics. Plan discussed with Dr Afshan Chavarria, PGY-2
[2018-10-25 08:58] LABS: FOLATE 13.2 ng/mL
[2018-10-25] MEDS: Folic Acid 1 MG, Thiamine 100 MG, Multivitamin (MVI) 10 ML in Dextrose 5% In Water 1,00... IV SCH (09:09)
[2018-10-25] MEDS: NIFEdipine 60 mg ER Tab PO SCH (09:09)
[2018-10-25] MEDS: Enoxaparin 40 mg Syringe SC SCH (09:19)
--- NOTE | 2018-10-25 11:55 | PCM.PSYCH ---
Initial Psychiatric Evaluation - Initial Psychiatric Evaluation Type of Admission: Voluntary Legal Status: Capacity Current Medications: Active Medications Generic Name Dose Route Start Last Admin Trade Name Freq PRN Reason Stop Dose Admin Albuterol/Ipratropium 3 ml 10/24/18 12:56 Duoneb 3 Mg/0.5 Mg (3 Ml) Ud INH RQ4 PRN Shortness of Breath Enoxaparin Sodium 40 mg 10/25/18 10:00 10/25/18 09:19 Lovenox SC 40 mg DAILY NOEL Administration Azithromycin 500 mg/ Sodium 250 mls @ 250 mls/hr 10/24/18 16:00 Chloride IVPB Q24H NOEL Protocol Ceftriaxone Sodium 1 gm/ 100 mls @ 100 mls/hr 10/24/18 14:00 10/25/18 09:09 Sodium Chloride IVPB 100 mls/hr DAILY NOEL Administration Protocol Folic Acid 1 mg/ Thiamine HCl 1,011.2 mls @ 150 mls/hr 10/25/18 08:00 10/25/18 09:09 100 mg/ Multivitamins/Vitamin IV 150 mls/hr C 10 ml/ Dextrose Q24H NOEL Administration Lorazepam 1 mg 10/24/18 10:37 10/25/18 08:27 Ativan IVP 1 mg Q4H PRN Administration Symptoms of alcohol withdrawl Nifedipine 60 mg 10/24/18 14:00 10/25/18 09:09 Procardia Xl PO 60 mg DAILY NOEL Administration Pantoprazole Sodium 40 mg 10/25/18 10:00 10/25/18 09:09 Protonix Inj IVP 40 mg DAILY NOEL Administration Past Psychiatric History - Past Psychiatric History Pertinent Medical Hx (Current Medical&Sleep Prob, Allergies): Allergies Allergy/AdvReac Type Severity Reaction Status Date / Time tomatoes AdvReac RASH Uncoded 10/24/18 02:56 Budesonide/Formoterol Fumarate [Symbicort] 1 aer IH DAILY 03/22/18 Fluticasone/Salmeterol [Advair 250-50 Diskus] 1 each IH DAILY 03/22/18 Lisinopril [Zestril] 20 mg PO DAILY 03/22/18 NIFEdipine ER [Nifedipine ER] 60 mg PO DAILY 03/22/18 Omeprazole 40 mg PO DAILY 03/22/18
[2018-10-25] MEDS: Multiple Vitamins Tab PO SCH (12:26)
--- NOTE | 2018-10-25 13:07 | CT ---
Date of service: 10/24/2018 PROCEDURE: CT Chest with contrast (Pulmonary Angiogram) HISTORY: Elevated D Dimer, R/O PE COMPARISON: 04/09/2017 CT chest TECHNIQUE: Axial computed tomography images were obtained of the chest in the pulmonary arterial phase of enhancement. Coronal and sagittal reformatted images were created and reviewed. Intravenous contrast dose: 100 mL Visipaque 320 Radiation dose: Total exam DLP = 525.81 mGy-cm. This CT exam was performed using one or more of the following dose reduction techniques: Automated exposure control, adjustment of the mA and/or kV according to patient size, and/or use of iterative reconstruction technique. FINDINGS: PULMONARY ARTERIES: No central or segmental pulmonary emboli noted. Some subsegmental small pulmonary emboli in the left lower lobe are possible-their age is indeterminate. This is not seen as such on the prior study of 03/09/2017. Oval subsegmental left lower lobe pulmonary emboli here are possible with this current appearance . No more central or segmental pulmonary emboli appreciated. AORTA: No acute findings. No thoracic aortic aneurysm. There is presence of aortic atherosclerotic calcification and mural plaque on cross sectional studies. LUNGS: Interval posteromedial right lower lobe consolidation. Prior right middle lobe consolidation cleared. PLEURAL SPACES: No pneumothorax. No significant appearing pleural effusion. Trace right pleural fluid/thickening possible. HEART: Unremarkable. No cardiomegaly. No significant pericardial effusion. LYMPH NODES: A 6 mm right paratracheal kody density is similar the aortic arch with the 2017 study. No interval suspicious appearing lymphadenopathy noted. BONES, CHEST WALL: There is deformity of a posterior right rib [place] prior CTs have referenced prior nondisplaced rib fractures bilaterally) are all of these are not currently appreciated on this exam. No acute rib fracture or acute lytic appearing lesion is identified on this exam. OTHER FINDINGS: Interval asymmetrical elevation of the right hemidiaphragm the right hemidiaphragm is now almost 1/2 the height of the right hemithorax. This is an interval change. Right phrenic nerve paralysis is a consideration. Clinical correlation and follow-up is advised. The stomach is not distended to further evaluate. There is indeterminate the possible mild thickening of the duodenum and perhaps some of the small bowel loops this appearance is indeterminate. Mild degrees of duodenitis jejunitis are not excluded. Correlate clinically. IMPRESSION: No central or segmental pulmonary emboli seen. Since the 03/09/2017 study possible left lower lobe subsegmental tiny left lower lobe pulmonary emboli again subsegmental are possible. There is age is indeterminate but probably subsequent to the 2017 study. Correlate clinically the preliminary [place] rad report stated no central or segmental pulmonary emboli no mention of possible subsegmental pulmonary emboli was given on the preliminary report. Interval right lower lobe posteromedial consolidation atelectasis and/or infiltrate here compatible with this. The prior right middle lobe consolidation has cleared/resolved. Atherosclerotic vascular calcifications. Interval asymmetrical elevation of the right hemidiaphragm-a right phrenic nerve paralysis basis is a consideration. Clinical correlation and follow-up is advised.
[2018-10-25] MEDS: Azithromycin 500 MG in Sodium Chloride 0.9% 250 ML IVPB SCH ×2 (17:51→17:52)
[2018-10-26 07:13] LABS: BASO % 0.9 % (0.0-2.0); EOS # 0.1 K/uL (0.0-0.7); EOS % 3.1 % (0.0-4.0); HEMOGLOBIN 13.4 g/dL (12.0-18.0); LYMPH # 1.2 K/uL (1.0-4.3); LYMPH % 37.9 % (20.0-40.0); MEAN CORPUSCULAR HEMOGLOBIN 33.2 pg (27.0-31.0); MEAN CORPUSCULAR HGB CONC 33.9 g/dL (33.0-37.0); MEAN PLATELET VOLUME 8.3 fL (7.2-11.7); MONO # 0.5 K/uL (0.0-0.8); MONO % 17.1 % (0.0-10.0); NEUT # 1.3 K/uL (1.8-7.0); NRBC % 0.1 % (0.0-2.0); RBC 4.03 Mil/uL (4.40-5.90); RED CELL DISTRIBUTION WIDTH 14.5 % (11.5-14.5); WHITE BLOOD COUNT 3.1 K/uL (4.8-10.8)
[2018-10-26 07:43] LABS: ALB/GLOB RATIO 1.4 (1.0-2.1); ALBUMIN 3.9 g/dL (3.5-5.0); ALT/SGPT 24 U/L (21-72); AST/SGOT 50 U/L (17-59); BLOOD UREA NITROGEN 9 mg/dL (9-20); CALCIUM 9.3 mg/dl (8.6-10.4); GFR NON-AFRICAN AMERICAN > 60
[2018-10-26 07:53] VITALS: O2SAT 96
[2018-10-26] MEDS: Folic Acid 1 MG, Thiamine 100 MG, Multivitamin (MVI) 10 ML in Dextrose 5% In Water 1,00... IV SCH (08:06)
[2018-10-26] MEDS: NIFEdipine 60 mg ER Tab PO SCH (09:02)
[2018-10-26] MEDS: Enoxaparin 40 mg Syringe SC SCH (09:03)
[2018-10-26] MEDS: Multiple Vitamins Tab PO SCH (09:03)
[2018-10-26] MEDS ORDERED: Potassium Chloride 20 mEq ER Tab PO ONE (09:37)
--- NOTE | 2018-10-26 09:39 | CP.PCM.PN ---
Subjective - Date & Time of Evaluation Date of Evaluation: 10/26/18 Time of Evaluation: 09:38 - Subjective Subjective: Medicine Progress Note - Dr Cavanaugh's Service Patient seen and examined at bedside. Per nursing no acute events overnight. Patient is doing well, tolerating diet. Has not been ambulating much due to unsteady gait. Denies any auditory or visual hallucinations. Objective - Vital Signs/Intake and Output Vital Signs (last 24 hours): Temp Pulse Resp BP Pulse Ox 98.2 F 101 H 20 148/90 96 10/26/18 07:00 10/26/18 07:06 10/26/18 07:00 10/26/18 07:00 10/26/18 07:00 Intake and Output: 10/26/18 10/26/18 06:59 18:59 Intake Total 1030 Output Total 800 Balance 230 - Medications Medications: Current Medications Albuterol/Ipratropium (Duoneb 3 Mg/0.5 Mg (3 Ml) Ud) 3 ml INH RQ4 PRN PRN Reason: Shortness of Breath Chlordiazepoxide (Librium) 25 mg PO Q6 NOEL; Taper Stop: 10/29/18 11:59 Last Admin: 10/26/18 06:14 Dose: 25 mg Chlordiazepoxide (Librium) 25 mg PO Q4H PRN PRN Reason: Alcohol Withdrawal Enoxaparin Sodium (Lovenox) 40 mg SC DAILY NOEL Last Admin: 10/26/18 09:03 Dose: 40 mg Folic Acid (Folic Acid) 1 mg PO DAILY NOEL Last Admin: 10/26/18 09:03 Dose: 1 mg Azithromycin 500 mg/ Sodium (Chloride) 250 mls @ 250 mls/hr IVPB Q24H NOEL; Protocol Last Admin: 10/25/18 17:52 Dose: 250 mls/hr Ceftriaxone Sodium 1 gm/ (Sodium Chloride) 100 mls @ 100 mls/hr IVPB DAILY NOEL; Protocol Last Admin: 10/26/18 09:35 Dose: 100 mls/hr Folic Acid 1 mg/ Thiamine HCl 100 mg/ Multivitamins/Vitamin C 10 ml/ Dextrose 1,011.2 mls @ 150 mls/hr IV Q24H NOEL Last Admin: 10/26/18 08:06 Dose: 150 mls/hr Lorazepam (Ativan) 1 mg IVP Q4H PRN PRN Reason: Symptoms of alcohol withdrawl Last Admin: 10/25/18 08:27 Dose: 1 mg Multivitamins (Hexavitamin) 1 tab PO DAILY NOEL Last Admin: 10/26/18 09:03 Dose: 1 tab Nifedipine (Procardia Xl) 60 mg PO DAILY [facility] Last Admin: 10/26/18 09:02 Dose: 60 mg Pantoprazole Sodium (Protonix Inj) 40 mg IVP DAILY [facility] Last Admin: 10/26/18 09:03 Dose: 40 mg Potassium Chloride (K-Dur 20 Meq Er Tab) 40 meq PO ONCE ONE Stop: 10/26/18 09:38 Thiamine HCl (Vitamin B1 Tab) 100 mg PO DAILY NOEL Last Admin: 10/26/18 09:03 Dose: 100 mg Trazodone HCl (Desyrel) 50 mg PO HS PRN PRN Reason: Insomnia - Labs Labs: 10/26/18 07:07 10/26/18 07:07 - Additional Findings Additional findings: - Constitutional Appears: No Acute Distress, Older Than Stated Age, Chronically Ill - Head Exam Head Exam: ATRAUMATIC, NORMAL INSPECTION - Eye Exam Eye Exam: EOMI, Normal appearance - ENT Exam ENT Exam: Mucous Membranes Dry - Neck Exam Neck Exam: Full ROM - Respiratory Exam Respiratory Exam: Decreased Breath Sounds. absent: Rales, Rhonchi, Wheezes - Cardiovascular Exam Cardiovascular Exam: Tachycardia, +S1, +S2. absent: Diastolic murmur - GI/Abdominal Exam GI & Abdominal Exam: Soft, Tenderness (Mild). absent: Firm, Guarding, Rigid - Extremities Exam Extremities Exam: absent: Calf Tenderness - Neurological Exam Neurological Exam: Alert, Awake, Oriented x3 Additional comments: +tremulous - Psychiatric Exam Psychiatric exam: Normal Affect, Normal Mood - Skin Skin Exam: Dry, Normal Color, Warm Assessment and Plan - Assessment and Plan (Free Text) Assessment: Alcohol abuse/Alcohol dependence -Stable, afebrile -Admit to telemetry -Alcohol level on admission 284 -Continue banana bag -Librium 25mg Q6H NOEL, Librium 25mg PO Q4H prn -Ativan 1mg Q4H prn alcohol withdrawal symptoms -Psych consulted, Dr Vela, help appreciated -CIWA protocol, Seizure precautions, aspiration prescautions -Physical therapy ordered Hypokalemia -Repleted with Kcl 40 meq -Monitor and replete as needed Syncopal episode? -EKG showed sinus tachycardia -Troponins negative x 3 -CT head: No acute intracranial abnormality. Mild chronic microangiopathic changes and mild age-related global parenchymal volume loss -Cervical spine CT: No acute fractures. Multilevel degenerative spondylosis which most notably affect the exit foramina with moderate to fairly significant bilateral foraminal stenosis nearly every level. (see report for details) -Fall precautions Right lower lobe infiltrate, CAP -CXR showed New right lower lobe infiltrate/atelectasis. A component of volume loss is suspected by the elevation of the right hemidiaphragm -Started on Azithromycin and Rocephin -Blood cultures negative x 24 hours -Urine legionella, urine strep are negative Tachycardia -Patient tachycardic on exam -D dimer was elevated -CT chest showed No central or segmental pulmonary emboli seen. Since the 03/09/2017 study possible left lower lobe subsegmental tiny left lower lobe pulmonary emboli again subsegmental are possible. There is age is indeterminate but probably subsequent to the 2017 study. Interval right lower lobe posteromedial consolidation atelectasis and/or infiltrate here compatible with this. The prior right middle lobe consolidation has cleared/resolved. Atherosclerotic vascular calcifications. Interval asymmetrical elevation of the right hemidiaphragm-a right phrenic nerve paralysis basis is a consideration. Clinical correlation and follow-up is advised. (see full report) COPD/Emphysema -Duonebs q4H prn shortness of breath Hypertension -Nifedipine 60mg PO daily -Continue to monitor GI/DVT ppx: -Protonix 40mg IVP -Lovenox 40mg SC daily DISPO: Awaiting PT recommendations. Plan discussed with Dr Afshan Salguero DO PGY-2
[2018-10-26] MEDS: Azithromycin 500 MG in Sodium Chloride 0.9% 250 ML IVPB SCH (16:32)
--- NOTE | 2018-10-26 21:43 | CARD ---
APPROVED REPORT Date of service: 10/24/2018 EKG Measurement Heart [id number] CT [id number] [id number] <Conclusion> Sinus tachycardia Moderate voltage criteria for LVH, may be normal variant Borderline ECG
[2018-10-27] MEDS: Folic Acid 1 MG, Thiamine 100 MG, Multivitamin (MVI) 10 ML in Dextrose 5% In Water 1,00... IV SCH (08:03)
[2018-10-27 08:20] LABS: BASO % 0.8 % (0.0-2.0); EOS # 0.1 K/uL (0.0-0.7); EOS % 4.2 % (0.0-4.0); HEMOGLOBIN 13.3 g/dL (12.0-18.0); LYMPH % 32.2 % (20.0-40.0); MEAN CELL VOLUME 98.5 fL (80.0-94.0); MEAN CORPUSCULAR HEMOGLOBIN 33.8 pg (27.0-31.0); MEAN CORPUSCULAR HGB CONC 34.3 g/dL (33.0-37.0); MONO # 0.6 K/uL (0.0-0.8); MONO % 19.3 % (0.0-10.0); NEUT # 1.4 K/uL (1.8-7.0); NEUT % 43.5 % (50.0-75.0); NRBC % 0.2 % (0.0-2.0); RBC 3.94 Mil/uL (4.40-5.90); RED CELL DISTRIBUTION WIDTH 14.7 % (11.5-14.5); WHITE BLOOD COUNT 3.2 K/uL (4.8-10.8)
[2018-10-27 08:32] LABS: ALB/GLOB RATIO 1.5 (1.0-2.1); ALBUMIN 3.9 g/dL (3.5-5.0); ALT/SGPT 22 U/L (21-72); AST/SGOT 46 U/L (17-59); BLOOD UREA NITROGEN 9 mg/dL (9-20); CALCIUM 9.3 mg/dl (8.6-10.4); GFR NON-AFRICAN AMERICAN > 60
[2018-10-27] MEDS: Enoxaparin 40 mg Syringe SC SCH (09:37)
[2018-10-27] MEDS: Multiple Vitamins Tab PO SCH (09:40)
[2018-10-27] MEDS: NIFEdipine 60 mg ER Tab PO SCH (09:41)
--- NOTE | 2018-10-27 11:22 | CP.PCM.PN ---
Subjective - Date & Time of Evaluation Date of Evaluation: 10/27/18 Time of Evaluation: 11:20 - Subjective Subjective: Medicine Progress Note - Dr Cavanaugh's service Patient seen and examined at bedside. Per nursing no acute events overnight. Patient is doing well, he is tolerating. PT is recommending [facility] for discharge. Objective - Vital Signs/Intake and Output Vital Signs (last 24 hours): Temp Pulse Resp BP Pulse Ox 98.7 F 114 H 20 154/99 H 96 10/27/18 07:12 10/27/18 08:27 10/27/18 07:12 10/27/18 07:12 10/27/18 07:12 Intake and Output: 10/27/18 10/27/18 06:59 18:59 Intake Total 730 Output Total 800 Balance -70 - Medications Medications: Current Medications Albuterol/Ipratropium (Duoneb 3 Mg/0.5 Mg (3 Ml) Ud) 3 ml INH RQ4 PRN PRN Reason: Shortness of Breath Chlordiazepoxide (Librium) 25 mg PO TID NOEL; Taper Stop: 10/29/18 11:59 Last Admin: 10/26/18 17:59 Dose: 25 mg Chlordiazepoxide (Librium) 25 mg PO Q4H PRN PRN Reason: Alcohol Withdrawal Enoxaparin Sodium (Lovenox) 40 mg SC DAILY NOEL Last Admin: 10/27/18 09:37 Dose: 40 mg Folic Acid (Folic Acid) 1 mg PO DAILY NOEL Last Admin: 10/27/18 09:41 Dose: 1 mg Azithromycin 500 mg/ Sodium (Chloride) 250 mls @ 250 mls/hr IVPB Q24H NOEL; Protocol Last Admin: 10/26/18 16:32 Dose: 250 mls/hr Ceftriaxone Sodium 1 gm/ (Sodium Chloride) 100 mls @ 100 mls/hr IVPB DAILY NOEL; Protocol Last Admin: 10/27/18 09:54 Dose: 100 mls/hr Folic Acid 1 mg/ Thiamine HCl 100 mg/ Multivitamins/Vitamin C 10 ml/ Dextrose 1,011.2 mls @ 150 mls/hr IV Q24H NOEL Last Admin: 10/27/18 08:03 Dose: 150 mls/hr Lorazepam (Ativan) 1 mg IVP Q4H PRN PRN Reason: Symptoms of alcohol withdrawl Last Admin: 10/25/18 08:27 Dose: 1 mg Multivitamins (Hexavitamin) 1 tab PO DAILY [facility] Last Admin: 10/27/18 09:40 Dose: 1 tab Nifedipine (Procardia Xl) 60 mg PO DAILY [facility] Last Admin: 10/27/18 09:41 Dose: 60 mg Pantoprazole Sodium (Protonix Inj) 40 mg IVP DAILY [facility] Last Admin: 10/27/18 09:39 Dose: 40 mg Thiamine HCl (Vitamin B1 Tab) 100 mg PO DAILY [facility] Last Admin: 10/27/18 09:41 Dose: 100 mg Trazodone HCl (Desyrel) 50 mg PO HS PRN PRN Reason: Insomnia - Labs Labs: 10/27/18 07:55 10/27/18 07:55 - Additional Findings Additional findings: - Constitutional Appears: No Acute Distress, Older Than Stated Age, Chronically Ill - Head Exam Head Exam: ATRAUMATIC, NORMAL INSPECTION - Eye Exam Eye Exam: EOMI, Normal appearance - ENT Exam ENT Exam: Mucous Membranes Dry - Neck Exam Neck Exam: Full ROM - Respiratory Exam Respiratory Exam: Decreased Breath Sounds. absent: Rales, Rhonchi, Wheezes - Cardiovascular Exam Cardiovascular Exam: Tachycardia, +S1, +S2. absent: Diastolic murmur - GI/Abdominal Exam GI & Abdominal Exam: Soft, Tenderness (Mild). absent: Firm, Guarding, Rigid - Extremities Exam Extremities Exam: absent: Calf Tenderness - Neurological Exam Neurological Exam: Alert, Awake, Oriented x3 Additional comments: +tremulous - Psychiatric Exam Psychiatric exam: Normal Affect, Normal Mood - Skin Skin Exam: Dry, Normal Color, Warm Assessment and Plan - Assessment and Plan (Free Text) Assessment: Alcohol abuse/Alcohol dependence -Stable, afebrile -Admit to telemetry -Alcohol level on admission 284 -Continue banana bag -Librium 25mg TID NOEL, Librium 25mg PO Q4H prn -Ativan 1mg Q4H prn alcohol withdrawal symptoms -Psych consulted, Dr Vela, help appreciated -CIWA protocol, Seizure precautions, aspiration prescautions -Physical therapy ordered Hypokalemia -Repleted with Kcl 40 meq -Monitor and replete as needed Syncopal episode? -EKG showed sinus tachycardia -Troponins negative x 3 -CT head: No acute intracranial abnormality. Mild chronic microangiopathic changes and mild age-related global parenchymal volume loss -Cervical spine CT: No acute fractures. Multilevel degenerative spondylosis which most notably affect the exit foramina with moderate to fairly significant bilateral foraminal stenosis nearly every level. (see report for details) -Fall precautions Right lower lobe infiltrate, CAP -CXR showed New right lower lobe infiltrate/atelectasis. A component of volume loss is suspected by the elevation of the right hemidiaphragm -Started on Azithromycin and Rocephin -Blood cultures negative x 24 hours -Urine legionella, urine strep are negative Tachycardia -Patient tachycardic on exam -D dimer was elevated -CT chest showed No central or segmental pulmonary emboli seen. Since the 03/09/2017 study possible left lower lobe subsegmental tiny left lower lobe pulmonary emboli again subsegmental are possible. There is age is indeterminate but probably subsequent to the 2017 study. Interval right lower lobe posteromedial consolidation atelectasis and/or infiltrate here compatible with this. The prior right middle lobe consolidation has cleared/resolved. Atherosclerotic vascular calcifications. Interval asymmetrical elevation of the right hemidiaphragm-a right phrenic nerve paralysis basis is a consideration. Clinical correlation and follow-up is advised. (see full report) COPD/Emphysema -Duonebs q4H prn shortness of breath Hypertension -Nifedipine 60mg PO daily -Continue to monitor GI/DVT ppx: -Protonix 40mg IVP -Lovenox 40mg SC daily DISPO: PT recommending [facility] however patient is refusing and would like to go home. Will discharge patient home with services. Finish course of antibiotics. Plan discussed with Dr Afshan Salguero DO PGY-2
[2018-10-27] MEDS ORDERED: Potassium Chloride 20 mEq ER Tab PO ONE (11:26)
[2018-10-27 15:57] VITALS: BP 119/89; PULSE 108; TEMP 97.4
--- NOTE | 2018-10-27 17:48 | CARD ---
APPROVED REPORT Date of service: 10/27/2018 EXAM: Two-dimensional and M-mode echocardiogram with Doppler and color Doppler. Other Information Quality : GoodRhythm : INDICATION Abnormal EKG/Arrhythmia Syncope COPD alcohol RISK FACTORS Hypertension 2D DIMENSIONS IVSd1.2 (0.7-1.1cm)LVDd5.0 (3.9-5.9cm) PWd1.3 (0.7-1.1cm)LA [id number] (18-58mL) LVDs3.9 (2.5-4.0cm)FS (%) 21.2 % LVEF (%)42.9 (>50%)LVEF (Whiting's)50.16 % IVC0.00 cm M-Mode DIMENSIONS RVDd2.23 (2.1-3.2cm)Left Atrium (MM)3.71 (2.5-4.0cm) IVSd1.16 (0.7-1.1cm)Aortic Root3.92 (2.2-3.7cm) LVDd4.95 (4.0-5.6cm)Aortic Cusp Exc.2.50 (1.5-2.0cm) PWd1.18 (0.7-1.1cm)FS (%) 24 % LVDs3.76 (2.0-3.8cm)LVEF (%)47 (>50%) Aortic Valve AI P 1/2 [id number] Mitral Valve MV E Qnyutxhr31.3cm/sMV A Abnvnhoq07.0cm/sE/A ratio0.7 PCXC506.79 cm/s TDI Lateral E' Peak V5.25cm/sMedial E' Peak V4.22cm/sE/Lateral E'10.3 E/Medial E'12.9 LEFT VENTRICLE The left ventricle is normal size. There is normal left ventricular wall thickness. The systolic function is at low level of normal to mildly depressed Ejection Fraction is - 45 to 50%. There is mild hypokinesis in the mid-anteroseptal wall. Grade I diastolic dysfunction - abnormal relaxation pattern. RIGHT VENTRICLE The right ventricle is normal size. The right ventricular systolic function is normal. ATRIA The left atrium size is normal. The right atrium size is normal. AORTIC VALVE The aortic valve is mildly calcified but opens well. There is trace aortic regurgitation. There is no aortic valvular stenosis. MITRAL VALVE The mitral valve is normal in structure. Mitral annular calcification is mild. Mitral regurgitation is mild. TRICUSPID VALVE The tricuspid valve is normal in structure. PULMONIC VALVE The pulmonary valve is normal in structure. GREAT VESSELS The aortic root is normal in size. The aortic root displays mild sclerocalcific changes. The IVC is normal in size and collapses >50% with inspiration. PERICARDIAL EFFUSION There is no pericardial effusion. <Conclusion> The left ventricular systolic function is at low level of normal to mildly depressed. Ejection Fraction is - 45 to 50%. There is mild hypokinesis in the mid-anteroseptal wall. Grade I diastolic dysfunction - abnormal relaxation pattern. The right ventricular systolic function is normal. The aortic valve is mildly calcified but opens well. There is trace aortic regurgitation. Mild mitral regurgitation. Mitral annular calcification is mild. The aortic root displays mild sclerocalcific changes. There is no pericardial effusion.
--- NOTE | 2018-10-28 12:28 | VASCLAB ---
Date of service: 10/27/2018 PROCEDURE: Carotid Duplex Exam. HISTORY: syncope COMPARISON: None available. TECHNIQUE: Grayscale and duplex Doppler evaluation of the cervical carotid and vertebral arteries were performed. The common carotid, carotid bifurcations and cervical Internal Carotid Artery (ICA) and proximal External Carotid Artery (ECA) were evaluated. The vertebral arteries were evaluated for gross patency and flow direction. Report prepared by Kamaljit Prieto, BS, RVT FINDINGS: RIGHT CAROTID ARTERIES: 1. Common Carotid Artery: Minimal plaque formation of the right CCA which does not result in hemodynamically significant stenosis. Maximum Peak Systolic velocity: 59 cm/sec: End-diastolic velocity 14 cm/sec. 2. Carotid Bifurcation: plaque formation. Maximum Peak Systolic velocity: 65 cm/sec: End-diastolic velocity 11 cm/sec. 3. Internal Carotid Artery: Minimal plaque formation of the right proximal ICA which does not result in hemodynamically significant stenosis. Plaque description: Calcific 3.1. Proximal Segment: Peak systolic velocity 53 cm/sec: End-diastolic velocity 15 cm/sec - % stenosis 0-15% 3.2. Middle Segment: Peak systolic velocity 45 cm/sec: End-diastolic velocity 17 cm/sec - % stenosis 0-15% 3.3. Distal Segment: Peak systolic velocity 102 cm/sec: End-diastolic velocity 34 cm/sec - % stenosis 0-15% 4. External Carotid Artery: No significant focal plaque formation. Peak systolic velocity 67 cm/sec 5. ICA/CCA Ratio: 1.7 LEFT CAROTID ARTERIES: 1. Common Carotid Artery: Minimal plaque formation of the left CCA which does not result in hemodynamically significant stenosis. Maximum Peak Systolic velocity: 90 cm/sec: End-diastolic velocity 22 cm/sec. 2. Carotid Bifurcation: plaque formation. Maximum Peak Systolic velocity: 73 cm/sec: End-diastolic velocity 14 cm/sec. 3. Internal Carotid Artery: Minimal plaque formation of the left proximal ICA which does not result in hemodynamically significant stenosis. Plaque description: Calcific 3.1. Proximal Segment: Peak systolic velocity 48 cm/sec: End-diastolic velocity 15 cm/sec - % stenosis 0-15% 3.2. Middle Segment: Peak systolic velocity 56 cm/sec: End-diastolic velocity 17 cm/sec - % stenosis 0-15% 3.3. Distal Segment: Peak systolic velocity 81 cm/sec: End-diastolic velocity 33 cm/sec - % stenosis 0-15% 4. External Carotid Artery: No significant focal plaque formation. Peak systolic velocity 98 cm/sec 5. ICA/CCA Ratio: 0.9 VERTEBRAL ARTERIES: 1. Right Vertebral Artery: The right vertebral artery flow direction is antegrade. 2. Left Vertebral Artery: The left vertebral artery flow direction is antegrade. OTHER FINDINGS: 1. Right Brachial Blood pressure: 116 mmHg. 2. Left Brachial Blood pressure: 110 mmHg. 3. No atherosclerotic calcification present IMPRESSION: RIGHT: Duplex scan does not suggest hemodynamically significant stenosis of the right extracranial carotid arteries. LEFT: Duplex scan does not suggest hemodynamically significant stenosis of the left extracranial carotid arteries.
== END 2018-10-27 18:45 | disposition home or self-care (01) | DRG 89 ==
LOC: C.ER 02:26 → C.9E 07:30 → C.9S 09:48 → C.9E 10:31 → C.6T 10:32 → C.9E 10:33 → OBSVTOIN 10:34 → C.3T 14:23 → C.9E 14:26 → C.6T 16:06
PROVIDERS: ADMIT Internal Medicine; ATTEND Internal Medicine
PROC: HZ2ZZZZ Detoxification Services for Substance Abuse Treatment (ICD-10-PCS; principal; 2018-10-24)
DX: J18.9 Pneumonia, unspecified organism (principal); F10.230 Alcohol dependence with withdrawal, uncomplicated; E87.1 Hypo-osmolality and hyponatremia; E87.6 Hypokalemia; I11.0 Hypertensive heart disease with heart failure; J43.9 Emphysema, unspecified; I50.9 Heart failure, unspecified; Y90.8 Blood alcohol level of 240 mg/100 ml or more; E78.00 Pure hypercholesterolemia, unspecified; R73.03 Prediabetes; R29.6 Repeated falls; F17.210 Nicotine dependence, cigarettes, uncomplicated; R00.0 Tachycardia, unspecified; R26.81 Unsteadiness on feet; N40.0 Benign prostatic hyperplasia without lower urinary tract symptoms; G47.00 Insomnia, unspecified; M48.02 Spinal stenosis, cervical region

== ENCOUNTER 2018-11-10 10:51 | Inpatient (IN) | payer OTHER ==
[2018-11-10 10:51] VITALS: BMI 20.7
[2018-11-10] MEDS ORDERED: Multivitamin (MVI) 10 ML, Thiamine 100 MG, Folic Acid 1 MG in Sodium Chloride 0.9% 1,00... IV ONE ×2 (11:57→16:10)
--- NOTE | 2018-11-10 12:22 | C.PDOC ---
History Of Present Illness Patient is a 63 year old male with pmhx of alcohol abuse, HTN who presents to ED today s/p fall this morning while waiting for the bus. Patient was standing waiting for the bus and lost his balance and fell forward, breaking his fall with his hands. Denies trauma to hear or LOC. Patient reports he was heading to the hospital to speak with a DrStu regarding home PT that he believes was prescribed to him from his last admission. Patient reports he often feels light-headed, and has sustained many falls 2/2 unsteadiness recently. Patient admits to heavy drinking history, with last alcohol consumption just prior to arrival. Denies chest pain, SOB, pains from fall. Reports persistent neck and head pain from previous fall. <Breanna Frye - Last Filed: 11/10/18 16:07> History Per: Patient History/Exam Limitations: no limitations Onset/Duration Of Symptoms: Hrs Current Symptoms Are (Timing): Still Present Number Of Syncopal Episodes: 1 Activity At Onset Of Symptoms: Standing Associated Symptoms Preceding Syncopal Episode: Lightheadedness Seizure Or Post-ictal Symptoms: None Possible Causative Factor(s): Lightheaded W/Standing, Lightheaded W/Exertion, Recent Alcohol Fall Associated With With Symptoms: Positive Injury Severity: Mild - Symptoms Of CVA Associated Symptoms: denies: Impaired Speech Current Coumadin Use?: No Recent Head Trauma: Yes <Breanna Frye - Last Filed: 11/10/18 16:07> <Jose Angel Orantes DO - Last Filed: 11/10/18 18:44> Time Seen by Provider: 11/10/18 11:29 Chief Complaint (Nursing): Substance Abuse Past Medical History Vital Signs: Last Vital Signs Temp 98 F 11/10/18 11:06 Pulse 140 H 11/10/18 11:06 Resp 18 11/10/18 11:06 BP 162/95 H 11/10/18 11:06 Pulse Ox 98 11/10/18 11:06 - Medical History PMH: Arthritis, Asthma, Back Problems, Benign Prostatic Hyperplasia, Bronchitis, Cardiac Aneurysm, CHF, COPD, Diabetes (Borderline), Emphysema, Gastritis, HTN, Hypercholesterolemia, Seizures Denies: Chronic Kidney Disease Surgical History: Hernia Repair - [facility] Procedures ALCOHOL DETOXIFICATION (11/15/14) DETOXIFICATION SERVICES FOR SUBSTANCE ABUSE TREATMENT (10/24/18) INDIV PSYCHOTHERAPY FOR SUBSTANCE ABUSE TREATMENT, SUPPORT (03/08/17) INDIV PSYCHOTHERAPY FOR SUBSTANCE ABUSE, COGNITIV BEHAVIORAL (03/08/17) INDIV PSYCHOTHERAPY FOR SUBSTANCE ABUSE, PSYCHOEDUCATION (03/08/17) INSERT INDWELLING CATH (06/08/13) TETANUS TOXOID ADMINIST (05/28/14) Family History: States: Unknown Family Hx - Social History Hx Tobacco Use: Yes Hx Alcohol Use: Yes (beer and vodka) Hx Substance Use: No - Immunization History Hx Tetanus Toxoid Vaccination: Yes Hx Influenza Vaccination: Yes Hx Pneumococcal Vaccination: Yes <Breanna Frye - Last Filed: 11/10/18 16:07> Vital Signs: Last Vital Signs Temp 98.4 F 11/10/18 13:25 Pulse 103 H 11/10/18 15:25 Resp 21 11/10/18 15:25 BP 124/83 11/10/18 15:25 Pulse Ox 98 11/10/18 16:07 - [facility] Procedures ALCOHOL DETOXIFICATION (11/15/14) DETOXIFICATION SERVICES FOR SUBSTANCE ABUSE TREATMENT (10/24/18) INDIV PSYCHOTHERAPY FOR SUBSTANCE ABUSE TREATMENT, SUPPORT (03/08/17) INDIV PSYCHOTHERAPY FOR SUBSTANCE ABUSE, COGNITIV BEHAVIORAL (03/08/17) INDIV PSYCHOTHERAPY FOR SUBSTANCE ABUSE, PSYCHOEDUCATION (03/08/17) INSERT INDWELLING CATH (06/08/13) TETANUS TOXOID ADMINIST (05/28/14) <Jose Angel Orantes DO - Last Filed: 11/10/18 18:44> Review Of Systems Eyes: Negative for: Vision Change Cardiovascular: Negative for: Chest Pain, Palpitations Respiratory: Negative for: Shortness of Breath, SOB with Excertion Gastrointestinal: Negative for: Nausea <Breanna Frye - Last Filed: 11/10/18 16:07> Physical Exam - Physical Exam Appears: Non-toxic, No Acute Distress, Chronically Ill Skin: Other (various lesions/abrasions) Head: Atraumatic, Normacephalic, No Tenderness, No Swelling, No Abrasion, No Laceration Eye(s): bilateral: Normal Inspection, EOMI Neurological/Psych: Oriented x3, Normal Cognition, Normal Motor, Normal Sensation, Other (tremors/fasciculations) <Breanna Frye - Last Filed: 11/10/18 16:07> ED Course And Treatment - Laboratory Results Result Diagrams: 11/10/18 12:46 11/10/18 12:46 Lab Interpretation: No Changes Compared To Prior Results ECG: Viewed By Me ECG Rhythm: Sinus Tachycardia ECG Interpretation: No Acute Changes O2 Sat by Pulse Oximetry: 98 Pulse Ox Interpretation: Normal - Radiology CXR: Viewed By Me CXR Interpretation: Yes: No Acute Disease - CT Scan/US Head CT Other Rad Studies (CT/US): Read By Radiologist CT/US Interpretation: IMPRESSION: Generalized atrophy. Nonspecific white matter changes. Suspected tiny lacunar infarct at the brainstem however streak artifact obscures evaluation. <Breanna Frye - Last Filed: 11/10/18 16:07> - Laboratory Results Result Diagrams: 11/10/18 12:46 11/10/18 12:46 Lab Results: Troponin I < 0.0120 ng/mL (0.00-0.120) 11/10/18 12:46 Total Bilirubin 0.3 mg/dL (0.2-1.3) 11/10/18 12:46 AST 63 U/L (17-59) H D 11/10/18 12:46 ALT 20 U/L (21-72) L 11/10/18 12:46 Alkaline Phosphatase 62 U/L (38-126) 11/10/18 12:46 Total Protein 6.9 g/dL (6.3-8.3) 11/10/18 12:46 Albumin 4.1 g/dL (3.5-5.0) 11/10/18 12:46 Globulin 2.8 gm/dL (2.2-3.9) 11/10/18 12:46 Albumin/Globulin Ratio 1.5 (1.0-2.1) 11/10/18 12:46 Lipase 255 U/L (23-300) 11/10/18 12:46 <Jose Angel Orantes DO - Last Filed: 11/10/18 18:44> Medical Decision Making Medical Decision Makin63 year old male with pmhx of alcohol abuse, HTN evaluated for complaints of frequent falls CBC CMP Mg/Phos Head CT Alcohol level EKG CXR Lipase Troponin Ativan 2mg IVP Banana bag @250 Patient tachycardic, tremulous with fasciculations Admit for further workup of syncope and alcohol withdrawal <Breanna Frye - Last Filed: 11/10/18 16:07> Disposition Discussed With : Tl Cavanaugh Doctor Will See Patient In The: Hospital Counseled Patient/Family Regarding: Studies Performed, Diagnosis, Need For Followup - Disposition Disposition Time: 13:48 - POA Present On Arrival: Falls Or Trauma <Breanna Frye - Last Filed: 11/10/18 16:07> - Disposition Disposition Time: 14:10 <Jose Angel Orantes DO - Last Filed: 11/10/18 18:44> - Disposition Disposition: HOSPITALIZED Condition: FAIR - Clinical Impression Clinical Impression: Frequent falls, Alcohol abuse, Alcohol withdrawal - 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 ADRIANA has examined the patient and agrees with the treatment plan. <Jose Angel Orantes DO - Last Filed: 11/10/18 18:44>
--- NOTE | 2018-11-10 12:24 | CT ---
Date of service: 11/10/2018 PROCEDURE: CT HEAD WITHOUT CONTRAST. HISTORY: frequent falls - r/o ICH and fx COMPARISON: Noncontrast head CT performed 10/24/18 TECHNIQUE: Axial computed tomography images were obtained through the head/brain without intravenous contrast. Radiation dose: Total exam DLP = 1357.12 mGy-cm. This CT exam was performed using one or more of the following dose reduction techniques: Automated exposure control, adjustment of the mA and/or kV according to patient size, and/or use of iterative reconstruction technique. FINDINGS: HEMORRHAGE: No intracranial hemorrhage. BRAIN: Diffuse atrophy with prominence of the ventricles and sulci noted. No mass effect or edema. Intracranial atherosclerosis. Streak artifact obscures evaluation of the skull base. Tiny probable 4 mm lacunar infarct at the brainstem. Scattered periventricular and subcortical white matter hypodensities, which are nonspecific, but often seen with chronic microvascular ischemic disease. Please note that MRI with diffusion imaging is more sensitive in the detection of acute ischemic event. VENTRICLES: No hydrocephalus. CALVARIUM: Unremarkable. PARANASAL SINUSES: Unremarkable as visualized. No significant inflammatory changes. MASTOID AIR CELLS: Unremarkable as visualized. No inflammatory changes. OTHER FINDINGS: None. IMPRESSION: Generalized atrophy. Nonspecific white matter changes. Suspected tiny lacunar infarct at the brainstem however streak artifact obscures evaluation.
[2018-11-10 12:53] LABS: EOS # 0.1 K/uL (0.0-0.7); HEMOGLOBIN 13.5 g/dL (12.0-18.0); LYMPH # 1.7 K/uL (1.0-4.3); LYMPH % 40.2 % (20.0-40.0); MEAN CORPUSCULAR HEMOGLOBIN 33.7 pg (27.0-31.0); MEAN CORPUSCULAR HGB CONC 34.4 g/dL (33.0-37.0); MEAN PLATELET VOLUME 7.3 fL (7.2-11.7); MONO # 0.4 K/uL (0.0-0.8); MONO % 8.6 % (0.0-10.0); NEUT % 48.2 % (50.0-75.0); RBC 4.02 Mil/uL (4.40-5.90); RED CELL DISTRIBUTION WIDTH 14.6 % (11.5-14.5); WHITE BLOOD COUNT 4.1 K/uL (4.8-10.8)
[2018-11-10 13:11] LABS: ALB/GLOB RATIO 1.5 (1.0-2.1); ALBUMIN 4.1 g/dL (3.5-5.0); ALT/SGPT 20 U/L (21-72); AST/SGOT 63 U/L (17-59); BLOOD UREA NITROGEN 8 mg/dL (9-20); GFR NON-AFRICAN AMERICAN > 60; LIPASE 255 U/L (23-300)
--- NOTE | 2018-11-10 14:28 | RAD ---
Date of service: 11/10/2018 PROCEDURE: CHEST RADIOGRAPH, 1 VIEW HISTORY: r/o infiltrate COMPARISON: 10/24/2018. FINDINGS: LUNGS: There is low lung volume on the right related to elevated hemidiaphragm. The left lung is well inflated. The lungs are clear without focal consolidation. PLEURA: No pneumothorax or pleural effusion. CARDIOVASCULAR: The heart is normal in size. No aortic atherosclerotic calcifications present. OSSEOUS STRUCTURES: Within normal limits for the patient's age. VISUALIZED UPPER ABDOMEN: Normal. OTHER FINDINGS: There is chronic elevation of the right hemidiaphragm. IMPRESSION: No active pulmonary disease.
[2018-11-10] MEDS ORDERED: Albuterol-Ipratrop 3 mg / 0.5 (3 ml) UD INH PRN (16:22)
--- NOTE | 2018-11-10 16:28 | CP.PCM.PN ---
Subjective - Date & Time of Evaluation Date of Evaluation: 11/10/18 Time of Evaluation: 08:00 - Subjective Subjective: Medicine Progress Note for Dr. Cavanaugh: Patient was seen and examined at bedside. 63 year old male with pmhx of alcohol abuse, HTN who presented to the ED today s/p fall this morning while waiting for the bus. He states he was on his way to the office to see Dr. Cavanaugh. Patient was standing waiting for the bus and lost his balance and fell forward, breaking his fall with his hands. Patient states he has been unsteady on his feet. He states he uses a cane to walk. Patient admits to heavy drinking history, he states he has been drinking since he was in the 3rd grade. Patient states his last alcohol consumption just prior to arrival. He states he only drank half a beer prior to coming to the hospital. Denies chest pain, SOB, pains from fall. Reports persistent neck and head pain from previous fall. PMD: Dr. Cavanaugh Past Medical History: COPD; HTN; Alcohol dependence Objective - Vital Signs/Intake and Output Vital Signs (last 24 hours): Temp Pulse Resp BP Pulse Ox 98.4 F 103 H 21 124/83 98 11/10/18 13:25 11/10/18 15:25 11/10/18 15:25 11/10/18 15:25 11/10/18 16:07 - Medications Medications: Current Medications Albuterol/Ipratropium (Duoneb 3 Mg/0.5 Mg (3 Ml) Ud) 3 ml INH RQ6 PRN PRN Reason: Shortness of Breath Enoxaparin Sodium (Lovenox) 40 mg SC DAILY [facility] Folic Acid (Folic Acid) 1 mg PO DAILY [facility] (Budesonide/Formoterol Fumarate [Symbicort 160-4.5 Mcg Inhaler]) 1 aer IH DAILY [facility] (Fluticasone/Salmeterol [Advair 250-50 Diskus]) 1 each IH DAILY [facility] (Omeprazole [Omeprazole]) 40 mg PO DAILY [facility] Lorazepam (Ativan) 2 mg IVP Q3 PRN PRN Reason: Symptoms of alcohol withdrawl Multivitamins (Hexavitamin) 1 tab PO DAILY [facility] Nifedipine (Procardia Xl) 60 mg PO DAILY [facility] Thiamine HCl (Vitamin B1 Tab) 100 mg PO DAILY [facility] - Labs Labs: 11/10/18 12:46 11/10/18 12:46 - Constitutional Appears: No Acute Distress - Head Exam Head Exam: ATRAUMATIC, NORMAL INSPECTION - Eye Exam Eye Exam: EOMI, Normal appearance - ENT Exam ENT Exam: Mucous Membranes Moist - Respiratory Exam Respiratory Exam: Clear to Ausculation Bilateral, NORMAL BREATHING PATTERN - Cardiovascular Exam Cardiovascular Exam: Tachycardia, REGULAR RHYTHM, +S1, +S2 - GI/Abdominal Exam GI & Abdominal Exam: Soft, Normal Bowel Sounds. absent: Distended, Guarding, Tenderness - Extremities Exam Extremities Exam: Normal Inspection Additional comments: minimal tremors - Neurological Exam Neurological Exam: Alert, Awake, Oriented x3 - Psychiatric Exam Psychiatric exam: Normal Affect Assessment and Plan - Assessment and Plan (Free Text) Assessment: Alcohol Dependence - Stable, afebrile - Admit to telemetry - Alcohol level on admission 273 - f/u UDS - Ativan 2mg Q3H prn alcohol withdrawal symptoms - CIWA protocol, Seizure precautions, aspiration precautions - Discussed alcohol cessation Tachycardia Secondary to alcohol withdrawal - Alcohol level on admission 273 - Ativan 2mg Q3H prn alcohol withdrawal symptoms - CIWA protocol, Seizure precautions, aspiration precautions - Discussed alcohol cessation COPD/Emphysema -Duonebs q4H prn shortness of breath Hypertension -Nifedipine 60mg PO daily -Continue to monitor Prophylaxis - Protonix 40mg po daily - Lovenox 40mg SC daily - Physical Therapy - Previous admission 09/2018 patient refused CAMILLE. All plans and management discussed with Dr. Afshan Babin PGY-2
[2018-11-10 21:16] LABS: BARBITURATES, UR NEGATIVE (NEGATIVE); OPIATES, UR NEGATIVE (NEGATIVE); PHENCYCLIDINE, UR NEGATIVE (NEGATIVE)
[2018-11-10 21:18] LABS: BENZODIAZEPINES, UR POSITIVE (NEGATIVE)
[2018-11-10] MEDS: NIFEdipine 60 mg ER Tab PO SCH (21:29)
--- NOTE | 2018-11-11 07:02 | CP.PCM.PN ---
Subjective - Date & Time of Evaluation Date of Evaluation: 11/11/18 Time of Evaluation: 06:59 - Subjective Subjective: PGY-[address] Cavanaugh's service Pt seen and examined at bedside. Nursing reports no acute events overnight. Patient found sitting comfortably at bedside, oriented x 3. He states he has withdrawn for alcohol many times before, and is now living at [facility] [place] after completing rehab there. Last use was yesterday "one beer before admission." Denies history of delirium tremens, hallucinations, or chest pain. Objective - Vital Signs/Intake and Output Vital Signs (last 24 hours): Temp Pulse Resp BP Pulse Ox 98.0 F 94 H 20 150/97 H 95 11/11/18 00:00 11/11/18 04:00 11/11/18 00:00 11/11/18 00:00 11/11/18 00:00 - Medications Medications: Current Medications Albuterol/Ipratropium (Duoneb 3 Mg/0.5 Mg (3 Ml) Ud) 3 ml INH RQ6 PRN PRN Reason: Shortness of Breath Enoxaparin Sodium (Lovenox) 40 mg SC DAILY [facility] Fluticasone/Vilanterol (Breo Ellipta 100-25 Mcg Inh) 1 puff INH RQ24 [facility] Folic Acid (Folic Acid) 1 mg PO DAILY [facility] Lorazepam (Ativan) 2 mg IVP Q3 PRN PRN Reason: Symptoms of alcohol withdrawl Last Admin: 11/10/18 17:36 Dose: 2 mg Multivitamins (Hexavitamin) 1 tab PO DAILY [facility] Nifedipine (Procardia Xl) 60 mg PO DAILY [facility] Last Admin: 11/10/18 21:29 Dose: 60 mg Pantoprazole Sodium (Protonix Ec Tab) 40 mg PO DAILY [facility] Thiamine HCl (Vitamin B1 Tab) 100 mg PO DAILY [facility] - Labs Labs: 11/10/18 12:46 11/10/18 12:46 - Additional Findings Additional findings: - Constitutional Appears: No Acute Distress - Head Exam Head Exam: ATRAUMATIC, NORMAL INSPECTION - Eye Exam Eye Exam: EOMI, Normal appearance, No jaundice - ENT Exam ENT Exam: Mucous Membranes Moist - Respiratory Exam Respiratory Exam: Clear to Ausculation Bilateral, NORMAL BREATHING PATTERN - Cardiovascular Exam Cardiovascular Exam: Tachycardia, REGULAR RHYTHM, +S1, +S2 - GI/Abdominal Exam GI & Abdominal Exam: Soft, Normal Bowel Sounds. absent: Distended, Guarding, Tenderness - Extremities Exam Extremities Exam: Normal Inspection Additional comments: minimal tremors of hands; no tongue fasciculations - Neurological Exam Neurological Exam: Alert, Awake, Oriented x3 (knows president) - Psychiatric Exam Psychiatric exam: Normal Affect Assessment and Plan - Assessment and Plan (Free Text) Plan: Alcohol Dependence - Stable, afebrile - Admit to telemetry - Alcohol level on admission 273 - UDS: Positive Benzo - Ativan 2mg Q3H prn alcohol withdrawal symptoms - CIWA protocol, Seizure precautions, aspiration precautions - Discussed alcohol cessation Tachycardia Secondary to alcohol withdrawal/dehydration - Alcohol level on admission 273 - LR @ 100 cc/hr - Discussed alcohol cessation - patient not open to rehab at this time COPD/Emphysema -Duonebs q4H prn shortness of breath -Breo 1 puf Q24H Hypertension -Nifedipine 60mg PO daily -Continue to monitor Leukopenia 2/2 Chronic EtOH use WBC 3.8 today, afebrile Electrolyte abnormality Mg repleted (11/11) Prophylaxis - Protonix 40mg po daily - Lovenox 40mg SC daily - Physical Therapy - Previous admission 09/2018 patient refused CAMILLE. All plans and management discussed with Dr. Afshan Salinas PGY3
[2018-11-11] MEDS ORDERED: Fluticasone-Vilanterol 100/25mcg Diskus INH SCH (08:00)
[2018-11-11 08:08] LABS: EOS # 0.2 K/uL (0.0-0.7); EOS % 4.6 % (0.0-4.0); LYMPH # 1.2 K/uL (1.0-4.3); LYMPH % 31.8 % (20.0-40.0); MEAN CELL VOLUME 97.9 fL (80.0-94.0); MEAN CORPUSCULAR HEMOGLOBIN 33.6 pg (27.0-31.0); MEAN CORPUSCULAR HGB CONC 34.3 g/dL (33.0-37.0); MONO # 0.4 K/uL (0.0-0.8); MONO % 10.6 % (0.0-10.0); NRBC % 0.1 % (0.0-2.0); RBC 4.16 Mil/uL (4.40-5.90); RED CELL DISTRIBUTION WIDTH 14.5 % (11.5-14.5); WHITE BLOOD COUNT 3.8 K/uL (4.8-10.8)
[2018-11-11 08:24] LABS: ALB/GLOB RATIO 1.5 (1.0-2.1); ALBUMIN 4.1 g/dL (3.5-5.0); ALT/SGPT 20 U/L (21-72); AST/SGOT 53 U/L (17-59); BLOOD UREA NITROGEN 10 mg/dL (9-20); CALCIUM 9.2 mg/dl (8.6-10.4); GFR NON-AFRICAN AMERICAN > 60
[2018-11-11] MEDS: Multiple Vitamins Tab PO SCH (09:45)
[2018-11-11] MEDS: Pantoprazole 40 mg EC Tab PO SCH (09:45)
[2018-11-11] MEDS: NIFEdipine 60 mg ER Tab PO SCH (09:47)
[2018-11-11] MEDS: Enoxaparin 40 mg Syringe SC SCH (09:47)
[2018-11-11] MEDS ORDERED: SALMETEROL IH SCH (10:00)
[2018-11-11] MEDS ORDERED: FLUTICASONE IH SCH (10:00)
--- NOTE | 2018-11-11 10:52 | CARD ---
APPROVED REPORT Date of service: 11/10/2018 EKG Measurement Heart [id number] <Conclusion> Sinus tachycardia Possible Left atrial enlargement Borderline ECG
[2018-11-11] MEDS ORDERED: Magnesium Sulfate 1 gm in D5W 1 GM/100 ML BAG IVPB ONE (13:00)
[2018-11-11] MEDS: Lactated Ringer's 1,000 ML IV SCH ×2 (13:23→22:30)
[2018-11-12 07:59] LABS: BASO % 0.7 % (0.0-2.0); EOS # 0.1 K/uL (0.0-0.7); EOS % 3.5 % (0.0-4.0); HEMOGLOBIN 13.5 g/dL (12.0-18.0); LYMPH # 1.3 K/uL (1.0-4.3); LYMPH % 29.2 % (20.0-40.0); MEAN CELL VOLUME 97.5 fL (80.0-94.0); MEAN CORPUSCULAR HEMOGLOBIN 33.6 pg (27.0-31.0); MEAN CORPUSCULAR HGB CONC 34.5 g/dL (33.0-37.0); MEAN PLATELET VOLUME 7.7 fL (7.2-11.7); MONO # 0.5 K/uL (0.0-0.8); MONO % 11.8 % (0.0-10.0); NEUT # 2.4 K/uL (1.8-7.0); NEUT % 54.8 % (50.0-75.0); NRBC % 0.1 % (0.0-2.0); RBC 4.01 Mil/uL (4.40-5.90); RED CELL DISTRIBUTION WIDTH 14.7 % (11.5-14.5); WHITE BLOOD COUNT 4.3 K/uL (4.8-10.8)
[2018-11-12 08:16] LABS: ALB/GLOB RATIO 1.6 (1.0-2.1); ALBUMIN 4.1 g/dL (3.5-5.0); ALT/SGPT 16 U/L (21-72); AST/SGOT 46 U/L (17-59); BLOOD UREA NITROGEN 7 mg/dL (9-20); CALCIUM 9.1 mg/dl (8.6-10.4); GFR NON-AFRICAN AMERICAN > 60
[2018-11-12] MEDS: Multiple Vitamins Tab PO SCH (09:36)
[2018-11-12] MEDS: Pantoprazole 40 mg EC Tab PO SCH (09:36)
[2018-11-12] MEDS: NIFEdipine 60 mg ER Tab PO SCH (09:36)
[2018-11-12] MEDS: Enoxaparin 40 mg Syringe SC SCH (09:37)
[2018-11-12] MEDS ORDERED: Potassium Chloride 20 mEq ER Tab PO ONE (16:11)
[2018-11-13 08:00] VITALS: RESP 20
[2018-11-13 09:06] LABS: BASO % 0.5 % (0.0-2.0); EOS # 0.1 K/uL (0.0-0.7); EOS % 3.3 % (0.0-4.0); HEMOGLOBIN 13.7 g/dL (12.0-18.0); LYMPH # 1.2 K/uL (1.0-4.3); LYMPH % 27.4 % (20.0-40.0); MEAN CELL VOLUME 97.6 fL (80.0-94.0); MEAN CORPUSCULAR HEMOGLOBIN 33.3 pg (27.0-31.0); MEAN CORPUSCULAR HGB CONC 34.1 g/dL (33.0-37.0); MEAN PLATELET VOLUME 7.6 fL (7.2-11.7); MONO # 0.6 K/uL (0.0-0.8); MONO % 12.7 % (0.0-10.0); NEUT # 2.5 K/uL (1.8-7.0); NEUT % 56.1 % (50.0-75.0); NRBC % 0.1 % (0.0-2.0); RBC 4.11 Mil/uL (4.40-5.90); RED CELL DISTRIBUTION WIDTH 14.7 % (11.5-14.5); WHITE BLOOD COUNT 4.4 K/uL (4.8-10.8)
[2018-11-13 09:15] LABS: ALB/GLOB RATIO 1.5 (1.0-2.1); ALBUMIN 4.1 g/dL (3.5-5.0); ALT/SGPT 13 U/L (21-72); AST/SGOT 37 U/L (17-59); BLOOD UREA NITROGEN 11 mg/dL (9-20); CALCIUM 9.5 mg/dl (8.6-10.4); GFR NON-AFRICAN AMERICAN > 60
[2018-11-13] MEDS: NIFEdipine 60 mg ER Tab PO SCH (09:29)
[2018-11-13] MEDS: Multiple Vitamins Tab PO SCH (09:30)
[2018-11-13] MEDS: Pantoprazole 40 mg EC Tab PO SCH (09:30)
[2018-11-13] MEDS: Enoxaparin 40 mg Syringe SC SCH (09:31)
--- NOTE | 2018-11-13 14:25 | HP ---
HISTORY OF PRESENT ILLNESS: A 63-year-old male that comes with chief complaint of alcohol withdrawal and shaking. The patient came to the ER, advised admission . PHYSICAL EXAMINATION: GENERAL: The patient is awake, alert, and oriented. VITAL SIGNS: Temperature 98.2, pulse 90. HEENT: Within normal limits. NECK: Supple. CHEST: Symmetrical. HEART: Regular. ABDOMEN: Soft. EXTREMITIES: No edema. Shaking tremors present. IMPRESSION AND PLAN: The patient suffers from chronic alcohol abuse. The patient is to get bedrest, supportive care, Ativan . Shelli Cavanaugh MD
[2018-11-14 07:37] LABS: BASO % 0.3 % (0.0-2.0); EOS # 0.1 K/uL (0.0-0.7); EOS % 2.8 % (0.0-4.0); HEMOGLOBIN 13.5 g/dL (12.0-18.0); LYMPH # 1.3 K/uL (1.0-4.3); LYMPH % 24.7 % (20.0-40.0); MEAN CELL VOLUME 98.4 fL (80.0-94.0); MEAN CORPUSCULAR HEMOGLOBIN 33.3 pg (27.0-31.0); MEAN CORPUSCULAR HGB CONC 33.8 g/dL (33.0-37.0); MEAN PLATELET VOLUME 7.4 fL (7.2-11.7); MONO # 0.7 K/uL (0.0-0.8); MONO % 12.9 % (0.0-10.0); NEUT % 59.3 % (50.0-75.0); NRBC % 0.1 % (0.0-2.0); RBC 4.05 Mil/uL (4.40-5.90); RED CELL DISTRIBUTION WIDTH 14.5 % (11.5-14.5); WHITE BLOOD COUNT 5.1 K/uL (4.8-10.8)
[2018-11-14 07:57] LABS: ALB/GLOB RATIO 1.5 (1.0-2.1); ALBUMIN 4.1 g/dL (3.5-5.0); ALT/SGPT 17 U/L (21-72); AST/SGOT 39 U/L (17-59); BLOOD UREA NITROGEN 11 mg/dL (9-20); CALCIUM 9.5 mg/dl (8.6-10.4); GFR NON-AFRICAN AMERICAN > 60
--- NOTE | 2018-11-14 08:21 | CP.PCM.PN ---
Subjective - Date & Time of Evaluation Date of Evaluation: 11/14/18 Time of Evaluation: 08:20 - Subjective Subjective: PGY-[address] Cavanaugh's service Pt seen and examined at bedside. Nursing reports no acute events overnight. Patient found sitting comfortably at bedside. Patient is oriented x3, and denies difficulty with gait, hallucinations, or chest pain. He is asking for discharge home and prescription for Breo inhaler. Long-conversation about alcohol abstinence and importance of daily vitamin/folic acid/thiamine to avoid complications of long-term alcoholism. Objective - Vital Signs/Intake and Output Vital Signs (last 24 hours): Temp Pulse Resp BP Pulse Ox 97.9 F 99 H 20 137/98 H 97 11/13/18 23:35 11/13/18 23:35 11/13/18 23:35 11/13/18 23:35 11/13/18 23:35 Intake and Output: 11/14/18 11/14/18 06:59 18:59 Intake Total 600 Output Total 650 Balance -50 - Medications Medications: Current Medications Albuterol/Ipratropium (Duoneb 3 Mg/0.5 Mg (3 Ml) Ud) 3 ml INH RQ6 PRN PRN Reason: Shortness of Breath Last Admin: 11/12/18 08:54 Dose: 3 ml Enoxaparin Sodium (Lovenox) 40 mg SC DAILY [facility] Last Admin: 11/13/18 09:31 Dose: 40 mg Fluticasone/Vilanterol (Breo Ellipta 100-25 Mcg Inh) 1 puff INH RQ24 [facility] Last Admin: 11/12/18 08:58 Dose: Not Given Folic Acid (Folic Acid) 1 mg PO DAILY [facility] Last Admin: 11/13/18 09:31 Dose: 1 mg Lorazepam (Ativan) 2 mg IVP Q3 PRN PRN Reason: Symptoms of alcohol withdrawl Last Admin: 11/13/18 19:06 Dose: 2 mg Multivitamins (Hexavitamin) 1 tab PO DAILY [facility] Last Admin: 11/13/18 09:30 Dose: 1 tab Nifedipine (Procardia Xl) 60 mg PO DAILY [facility] Last Admin: 11/13/18 09:29 Dose: 60 mg Pantoprazole Sodium (Protonix Ec Tab) 40 mg PO DAILY [facility] Last Admin: 11/13/18 09:30 Dose: 40 mg Thiamine HCl (Vitamin B1 Tab) 100 mg PO DAILY [facility] Last Admin: 11/13/18 09:31 Dose: 100 mg - Labs Labs: 11/14/18 07:27 11/14/18 07:27 - Additional Findings Additional findings: - Constitutional Appears: No Acute Distress - Head Exam Head Exam: ATRAUMATIC, NORMAL INSPECTION - Eye Exam Eye Exam: EOMI, Normal appearance, No jaundice - ENT Exam ENT Exam: Mucous Membranes Moist - Respiratory Exam Respiratory Exam: Clear to Ausculation Bilateral, NORMAL BREATHING PATTERN - Cardiovascular Exam Cardiovascular Exam: Tachycardia, REGULAR RHYTHM, +S1, +S2 - GI/Abdominal Exam GI & Abdominal Exam: Soft, Normal Bowel Sounds. absent: Distended, Guarding, Tenderness - Extremities Exam Extremities Exam: Normal Inspection Additional comments: nearly absent tremors of hands; no tongue fasciculations - Neurological Exam Neurological Exam: Alert, Awake, Oriented x3 (person, place, time, and context) - Psychiatric Exam Psychiatric exam: Normal Affect Assessment and Plan - Assessment and Plan (Free Text) Plan: Alcohol Dependence - Stable, afebrile - Admit to telemetry - Alcohol level on admission 273 - UDS: Positive Benzo - Ativan 2mg Q3H prn alcohol withdrawal symptoms - CT HEAD: negative for acute intracranial pathology - CIWA protocol, Seizure precautions, aspiration precautions - Discussed alcohol cessation Tachycardia EKG (): Sinus tachy @ 114 bpm; Questionable LAE CXR (11/10/18): [facility] Secondary to alcohol withdrawal/dehydration - Alcohol level on admission 273 - LR @ 100 cc/hr - Discussed alcohol cessation - patient not open to rehab at this time COPD/Emphysema -Duonebs q4H prn shortness of breath -Breo 1 puf Q24H Hypertension -Nifedipine 60mg PO daily -Continue to monitor Leukopenia 2/2 Chronic EtOH use WBC 3.8 today, afebrile Electrolyte abnormality Will replete as needed over course of stay Prophylaxis - Protonix 40mg po daily - Lovenox 40mg SC daily - Physical Therapy - Previous admission 09/2018 patient refused CAM[facility]. Dispo: Stable for DC per Afshan. Patient knows to f/u with Dr. Cavanaugh within one week. Given Rx for Breo. INstructed to take MV/thiamince/FA daily as directed. All plans and management discussed with Dr. Afshan Salinas PGY3
[2018-11-14 09:02] VITALS: BP 122/87; PULSE 114; TEMP 97.4; O2SAT 94
[2018-11-14] MEDS: NIFEdipine 60 mg ER Tab PO SCH (09:43)
[2018-11-14] MEDS: Potassium Chloride 20 mEq ER Tab PO ONE (09:44)
[2018-11-14] MEDS: Multiple Vitamins Tab PO SCH (09:45)
[2018-11-14] MEDS: Pantoprazole 40 mg EC Tab PO SCH (09:45)
[2018-11-14] MEDS: Enoxaparin 40 mg Syringe SC SCH (09:46)
== END 2018-11-14 12:36 | disposition home or self-care (01) | DRG 750 ==
LOC: C.ER 10:51 → C.6T 15:04
PROVIDERS: ADMIT Internal Medicine Pulmonary Disease; ATTEND Internal Medicine Pulmonary Disease
DX: F10.239 Alcohol dependence with withdrawal, unspecified (principal); E86.0 Dehydration; I11.0 Hypertensive heart disease with heart failure; I50.9 Heart failure, unspecified; J43.9 Emphysema, unspecified; W01.0XXA Fall on same level from slipping, tripping and stumbling without subsequent striking against object, initial encounter; R00.0 Tachycardia, unspecified; R73.03 Prediabetes; E78.00 Pure hypercholesterolemia, unspecified; N40.0 Benign prostatic hyperplasia without lower urinary tract symptoms; R29.6 Repeated falls; F17.210 Nicotine dependence, cigarettes, uncomplicated; Y90.8 Blood alcohol level of 240 mg/100 ml or more